=== PATIENT | female | born 1935 | race Caucasian/White ===

== ENCOUNTER 2021-01-09 17:06 | Inpatient (IN) | payer OTHER ==
--- NOTE | 2021-01-09 17:42 | RAD REPORT ---
EXAM DESCRIPTION: CT - Ct Stroke Brain Wo Cont - 01/09/2021 5:34 pm CLINICAL HISTORY: WEAKNESS Headache, drowsiness, CVA symptomology COMPARISON: No comparisons TECHNIQUE: All CT scans are performed using dose optimization technique as appropriate and may inclu de automated exposure control or mA/KV adjustment according to patient size. FINDINGS: No intracranial hemorrhage, hydrocephalus or extra-axial fluid collection.Advanced general ized brain atrophy is present with advanced periventricular and deep white matter chronic microvascul ar ischemic changes.No areas of brain edema or evidence of midline shift. The paranasal sinuses and mastoids are clear. The calvarium is intact. IMPRESSION: No acute intracranial abnormality. Continued clinical complaint or concern may benefit by MRI brain followup. The findings were discussed with Dr. Medel On 01/09/2021 at 5:36 p.m. by telephone.
[2021-01-09 17:57] LABS: Basophils % 1.1 % (0-1.3); Hematocrit 39.3 % (36.0-45.0); Lymphocytes % 21.5 % (15.3-44.8); RBC Red Blood Cell Count 4.16 M/uL (3.86-4.86)
--- NOTE | 2021-01-09 18:01 | EDPHYS ---
Physician Documentation [facility] Name: Brent Harris Age: 85 yrs Sex: Female : 1935 Arrival Date: 01/09/2021 Time: 17:16 Bed 23 Private MD: ED Physician Pasha Medel HPI: 01/09 17:22 This 85 yrs old Female presents to ER via Ambulatory with complaints of S/S estefany of Possible Stroke. 17:22 The patient's problem is reported as weakness, in the left upper extremity. Onset: The estefany symptoms/episode began/occurred 5 hour(s) ago. Duration: The episode is continuous. Context: the episode(s) was witnessed, by no one, symptoms became apparent at an unknown time, last normal 1230 pm. The symptoms are alleviated by nothing. The symptoms are aggravated by nothing. Associated signs and symptoms: The patient has no apparent associated signs or symptoms. Severity of symptoms: At their worst the symptoms were mild moderate in the emergency department the symptoms are unchanged. Patient's baseline: Neuro: alert but confused. The patient has not experienced similar symptoms in the past. 17:48 Duration: spoke with daughter, pt was normal last night, today at 1230pm daughter estefany noticed, left arm weakness, then rechesked her at 4pm , weakness progressed, left arm, call to ems was done. Historical: - Allergies: 17:30 NKDA; estefany - Social history:: Smoking status: Patient denies any tobacco usage or history of. Patient/guardian denies using alcohol, street drugs, IV drugs, caffeine, tobacco products. - Family history:: not pertinent. - Hospitalizations: : No recent hospitalization is reported. ROS: 17:22 Constitutional: Negative for fever, chills, and weight loss, Eyes: Negative for injury, estefany pain, redness, and discharge, ENT: Negative for injury, pain, and discharge, Neck: Negative for injury, pain, and swelling, Cardiovascular: Negative for chest pain, palpitations, and edema, Respiratory: Negative for shortness of breath, cough, wheezing, and pleuritic chest pain, Abdomen/GI: Negative for abdominal pain, nausea, vomiting, diarrhea, and constipation, Back: Negative for injury and pain, : Negative for injury, bleeding, discharge, and swelling, MS/Extremity: Negative for injury and deformity, Skin: Negative for injury, rash, and discoloration, Psych: Negative for depression, anxiety, suicide ideation, homicidal ideation, and hallucinations, Allergy/Immunology: Negative for hives, rash, and allergies, Endocrine: Negative for neck swelling, polydipsia, polyuria, polyphagia, and marked weight changes, Hematologic/Lymphatic: Negative for swollen nodes, abnormal bleeding, and unusual bruising. 17:22 Neuro: Positive for weakness. Exam: 17:22 Constitutional: This is a well developed, well nourished patient who is awake, alert, estefany and in no acute distress. Head/Face: Normocephalic, atraumatic. Eyes: Pupils equal round and reactive to light, extra-ocular motions intact. Lids and lashes normal. Conjunctiva and sclera are non-icteric and not injected. Cornea within normal limits. Periorbital areas with no swelling, redness, or edema. ENT: Nares patent. No nasal discharge, no septal abnormalities noted. Tympanic membranes are normal and external auditory canals are clear. Oropharynx with no redness, swelling, or masses, exudates, or evidence of obstruction, uvula midline. Mucous membranes moist. Neck: Trachea midline, no thyromegaly or masses palpated, and no cervical lymphadenopathy. Supple, full range of motion without nuchal rigidity, or vertebral point tenderness. No Meningismus. Chest/axilla: Normal chest wall appearance and motion. Nontender with no deformity. No lesions are appreciated. Cardiovascular: Regular rate and rhythm with a normal S1 and S2. No gallops, murmurs, or rubs. Normal PMI, no JVD. No pulse deficits. Abdomen/GI: Soft, non-tender, with normal bowel sounds. No distension or tympany. No guarding or rebound. No evidence of tenderness throughout. Back: No spinal tenderness. No costovertebral tenderness. Full range of motion. Female : Normal external genitalia. Skin: Warm, dry with normal turgor. Normal color with no rashes, no lesions, and no evidence of cellulitis. Psych: Awake, alert, with orientation to person, place and time. Behavior, mood, and affect are within normal limits. 17:22 Respiratory: the patient does not display signs of respiratory distress, Respirations: normal, Breath sounds: rhonchi, that are mild, Respiratory rate: 16 17:51 Radiologist reports: negative per Dr Ha allison 19:11 ECG was reviewed by the Attending Physician. [facility] Vital Signs: 17:15 BP 211 / 108; Pulse 67; Resp 21; Pulse Ox 97% on R/A; kg 17:17 BP 211 / 108; Pulse 69; Resp 16; Pulse Ox 99% on R/A; Pain 0/10; ss 17:30 BP 197 / 71; Pulse 62; Resp 20; Pulse Ox 97% on R/A; kg 18:00 BP 196 / 78; Pulse 63; Resp 20; Pulse Ox 96% on R/A; kg 18:30 BP 191 / 107; Pulse 62; Resp 20; Pulse Ox 96% on R/A; kg 20:00 BP 194 / 82; Pulse 64; Resp 16; Pulse Ox 100% on R/A; jm8 21:58 BP 187 / 82; Pulse 61; Resp 16; Pulse Ox 96% on R/A; jm8 NIH Stroke Scale Scores: 18:00 NIHSS Score: 9 kg MDM: 17:28 Differential diagnosis: CVA, TIA, Dementia, Alzheimer disease, metabolic disorder. Data [facility] reviewed: vital signs, nurses notes, EMS record, lab test result(s), EKG, radiologic studies, CT scan, plain films. 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 Test interpretation: by ED physician or midlevel provider: ECG, plain radiologic studies. Counseling: I had a detailed discussion with the patient and/or guardian regarding: the historical points, exam findings, and any diagnostic results supporting the discharge/admit diagnosis, the presence of at least one elevated blood pressure reading (>120/80) during this emergency department visit, lab results, the need for further work-up and treatment in the hospital. 17:30 Patient medically screened. [facility] 18:07 Physician consultation: Femi Clayton MD and will see patient in inpatient room, [facility], not a TPA candidate, aspirin and Plavix now, Lipitor as well. pt outside 4.5 hour window. 01/09 17:21 Order name: Basic Metabolic Panel [facility] 01/09 17:21 Order name: CBC with Diff [facility] 01/09 17:21 Order name: LFT's; Complete Time: 19:09 [facility] 01/09 17:21 Order name: Magnesium; Complete Time: 19:09 [facility] 01/09 17:21 Order name: NT PRO-BNP; Complete Time: 19:09 [facility] 01/09 17:21 Order name: PT-INR; Complete Time: 19:09 [facility] 01/09 17:21 Order name: Troponin (emerg Dept Use Only); Complete Time: 19:09 [facility] 01/09 17:21 Order name: Urine Culture [facility] 01/09 17:22 Order name: Sed Rate; Complete Time: 19:09 [facility] 01/09 17:22 Order name: CRP; Complete Time: 19:09 [facility] 01/09 17:22 Order name: Basic Metabolic Panel; Complete Time: 19:09 [facility] 01/09 17:22 Order name: CBC with Automated Diff; Complete Time: 19:09 [facility] 01/09 17:53 Order name: COVID-19 : Document "Date of Symptom Onset" if Symptomatic. 01/09 18:07 Order name: Lipid Profile; Complete Time: 19:31 [facility] 01/09 17:21 Order name: XRAY Chest (1 view); Complete Time: 20:13 [facility] 01/09 17:21 Order name: EKG; Complete Time: 17:22 [facility] 01/09 17:21 Order name: Cardiac monitoring; Complete Time: 19:16 [facility] 01/09 17:21 Order name: EKG - Nurse/Tech; Complete Time: 19:16 [facility] 01/09 17:21 Order name: CT Stroke Brain w/o Contrast; Complete Time: 19:09 [facility] 01/09 17:48 Order name: CT Head Angio; Complete Time: 20:13 [facility] 01/09 17:48 Order name: Neck Angio; Complete Time: 20:13 [facility] 01/09 18:12 Order name: Urine Dipstick-Ancillary; Complete Time: 19:09 [facility] 01/09 19:16 Order name: CONS Physician Consult [facility] 01/09 20:57 Order name: SARS-COV-2 RT PCR; Complete Time: 20:58 [facility] 01/09 17:21 Order name: IV Saline Lock; Complete Time: 19:16 [facility] 01/09 17:21 Order name: Labs collected and sent; Complete Time: 19:16 [facility] 01/09 17:21 Order name: O2 Per Protocol; Complete Time: 18:22 [facility] 01/09 17:21 Order name: O2 Sat Monitoring; Complete Time: 18:22 [facility] 01/09 17:21 Order name: Urine Dipstick-Ancillary (obtain specimen); Complete Time: 19:48 estefany EC:11 Rate is 65 beats/min. Rhythm is regular. QRS [place] is Normal. DC interval is normal. QRS estefany interval is normal. QT interval is normal. No Q waves. T waves are Normal. No ST changes noted. Clinical impression: NSR w/ Non-specific ST/T Changes and No evidence of ischemia. Interpreted by me. Reviewed by me. Administered Medications: Discontinued: NS 0.9% 500 ml IV at bolus once 19:00 Drug: Aspirin Chewable Tablet 324 mg Route: PO; iw 22:00 Follow up: Response: No adverse reaction [facility] 19:00 Drug: PlaVIX (clopidogrel) 75 mg Route: PO; iw 22:00 Follow up: Response: No adverse reaction 8 19:00 Drug: Lipitor (atorvastatin) 10 mg Route: PO; iw 22:00 Follow up: Response: No adverse reaction [facility] 19:40 Drug: NS 0.9% 500 ml Route: IV; Rate: bolus; Site: left antecubital; kg 19:40 Drug: NS 0.9% 1000 ml Route: IV; Rate: 125 ml/hr; Site: left antecubital; kg 19:40 Drug: foLIC Acid 1 mg Route: IVPB; Site: left antecubital; kg 22:01 Follow up: Response: No adverse reaction [facility] Disposition: 01/09/21 18:00 Hospitalization ordered by Bernardino Barraza for Inpatient Admission. Preliminary diagnosis are Transient cerebral ischemic attack, unspecified - left arm weakness, Essential (primary) hypertension. - Bed requested for Telemetry/MedSurg (Inpatient). - Status is Inpatient Admission. jm8 - Condition is Fair. - Problem is new. - Symptoms are unchanged. NIH Stroke Scale - NIH Stroke Score Date: 01/09/2021 Time: 18:00 Total Score = 9 1a. Level of Consciousness (LOC) - 0(Alert) 1b. Level of Consciousness (LOC) (Year \\T\\ Age) - 0(Both) 1c. LOC Commands (Open \\T\\ Closes Eyes/Brancher) - 0(Both) 2. Best Gaze (Lateral Gaze Paresis) - 0(Normal) 3. Visual Field Loss - 0(No visual loss) 4. Facial Palsy - 1(Minor Paralysis) 5a. Left Arm: Motor (10-second hold) - 3(No effort against gravity) 5b. Right Arm: Motor (10-second hold) - 0(No drift) 6a. Left Leg: Motor (5-second hold - always test supine) - 3(No effort against gravity) 6b. Right Leg: Motor (5-second hold - always test supine) - 1(Drift) 7. Limb Ataxia (finger/nose \\T\\ heel/traylor - test with eyes open) - 1(Present in one limb) 8. Sensory Loss (pinprick arms/legs/face) - 0(Normal) 9. Best Language: Aphasia (description/naming/reading) - 0(No aphasia) 10. Dysarthria (speech clarity - read or repeat words) - 0(Normal) 11. Extinction and Inattention (visual/tactile/auditory/spatial/personal) - 0(No abnormality) Initials: kg Signatures: Dispatcher [employer] EDGilda Delgado RN RN mw Anderson, Corey, MD MD cha Mickail, Joel, PA PA jmm Williams, Irene, RN RN iw Malcaba, Joseph, RN RN jm8 Graham, Kristen kg Corrections: (The following items were deleted from the chart) 19:14 19:12 Joint Treatment: Aspiration of right knee using 18 gauge needle, estefany Lidocaine, Removed clear fluid, yellow fluid, Dressed with band aid, Neosporin, Patient tolerated well. medil approach, 90 cc of fluid removed, sent for studies. [facility] 21:37 18:00 Hospitalization Ordered by Bernardino Barraza MD for Inpatient Admission. Preliminary diagnosis is Transient cerebral ischemic attack, unspecified - left arm weakness; Essential (primary) hypertension. Bed requested for Telemetry/MedSurg (Inpatient). Status is Inpatient Admission. Condition is Fair. Problem is new. Symptoms are unchanged. estefany 23:13 21:37 01/09/2021 18:00 Hospitalization Ordered by Bernardino Barraza MD for jm8 Inpatient Admission. Preliminary diagnosis is Transient cerebral ischemic attack, unspecified - left arm weakness; Essential (primary) hypertension. Bed requested for Telemetry/MedSurg (Inpatient). Status is Inpatient Admission. Condition is Fair. Problem is new. Symptoms are unchanged.
--- NOTE | 2021-01-09 18:01 | ER ---
Nurse's Notes [facility] Name: Brent Harris Age: 85 yrs Sex: Female : 1935 Arrival Date: 01/09/2021 Time: 17:16 Bed 23 Private MD: Diagnosis: Transient cerebral ischemic attack, unspecified-left arm weakness;Essential (primary) hypertension Presentation: 01/09 17:17 Chief complaint: EMS states: Family states L sided weakness that began sometime today. ss Last known well was was approximately 1200 today. Coronavirus screen: Client denies travel out of the [place] in the last 14 days. Ebola Screen: Patient denies exposure to infectious person. Patient denies travel to an Ebola-affected area in the 21 days before illness onset. An acute neurological deficit is present. The patients blood glucose was checked before arriving to the hospital and was found to be normal. Initial Sepsis Screen: Does the patient meet any 2 criteria? No. Patient's initial sepsis screen is negative. Does the patient have a suspected source of infection? No. Patient's initial sepsis screen is negative. Risk Assessment: Do you want to hurt yourself or someone else? Patient reports no desire to harm self or others. Onset of symptoms was January 09, 2021. 17:17 Method Of Arrival: Ambulatory ss 17:17 Acuity: ROBERT 3 ss Triage Assessment: 19:00 Neuro: Reports weakness in left arm since 12 pm Unknown onset per daughter. jm8 19:00 General: Appears in no apparent distress. Behavior is calm, cooperative, appropriate jm8 for age. 19:00 The onset of the patients symptoms was at an unknown time. jm8 Stroke Activation: Symtpom onset >3 hours and < 6 hours Physician: Stroke Attending; Name: ; Notified At: ; Arrived At: Physician: Chief Stroke Resident; Name: ; Notified At: ; Arrived At: Physician: Stroke Resident; Name: ; Notified At: ; Arrived At: Physician: ED Attending; Name: ; Notified At: ; Arrived At: Physician: ED Resident; Name: ; Notified At: ; Arrived At: Historical: - Allergies: 17:30 NKDA; estefany - Social history:: Smoking status: Patient denies any tobacco usage or history of. Patient/guardian denies using alcohol, street drugs, IV drugs, caffeine, tobacco products. - Family history:: not pertinent. - Hospitalizations: : No recent hospitalization is reported. Screenin:30 Abuse screen: Denies threats or abuse. Nutritional screening: No deficits noted. kg Tuberculosis screening: No symptoms or risk factors identified. Fall Risk Fall in past 12 months (25 points). IV access (20 points). Ambulatory Aid- Crutches/Cane/Walker (15 pts). Gait- Weak (10 pts.). Mental Status- Overestimates/Forgets Limitations (15 pts.). Total Tobin Fall Scale indicates High Risk Score (45 or more points). Fall prevention measures have been instituted. Side Rails Up X 2 Placed Close to Nursing Station Frequent Obs/Assessments Occuring Family Present and informed to notify staff if the need to leave the bedside As available patient and family educated on Fall Prevention Program and Strategies. Assessment: 18:00 VAN Scoring: Arm Drift: Severe drift Patient has been NPO before screening. The patient kg is alert, and able to follow commands. The patient does not exhibit slurred or garbled speech. The patient is not exhibiting difficulty speaking. The patient does not exhibit difficulty understanding words. The patient is unable to swallow own secretions without drooling or the need for suction. Patient tolerated one teaspoon of water. No drooling, immediate coughing, gurgling, or clearing of the throat was noted. The patient tolerated 90mL of water. No drooling, immediate coughing, gurgling, or clearing of the throat was noted. The patient passed the bedside swallow screening. Oral medications may be given as ordered. Contact Physician for further diet orders. T-PA (Activase) Screening: Contraindications: Other: Last seen normal >24 hrs. General: Appears in no apparent distress. Pain: Denies pain. Neuro: Level of Consciousness is Oriented to place, situation, Turbine Measurements Engineer are weak on left Weakness in left Speech is normal, Facial droop on left, Pupils are PERRLA, Intact. Cardiovascular: No deficits noted. Respiratory: No deficits noted. GI: No deficits noted. : No deficits noted. EENT: No deficits noted. Derm: No deficits noted. Musculoskeletal: No deficits noted. 20:00 Reassessment: Patient appears in no apparent distress at this time. No changes from 8 previously documented assessment. Patient and/or family updated on plan of care and expected duration. Pain level reassessed. Patient is alert, oriented x 3, equal unlabored respirations, skin warm/dry/pink. Patient denies pain at this time. 22:00 Reassessment: Patient appears in no apparent distress at this time. No changes from jm8 previously documented assessment. Patient and/or family updated on plan of care and expected duration. Pain level reassessed. Patient is alert, oriented x 3, equal unlabored respirations, skin warm/dry/pink. Patient denies pain at this time. Vital Signs: 17:15 BP 211 / 108; Pulse 67; Resp 21; Pulse Ox 97% on R/A; kg 17:17 BP 211 / 108; Pulse 69; Resp 16; Pulse Ox 99% on R/A; Pain 0/10; ss 17:30 BP 197 / 71; Pulse 62; Resp 20; Pulse Ox 97% on R/A; kg 18:00 BP 196 / 78; Pulse 63; Resp 20; Pulse Ox 96% on R/A; kg 18:30 BP 191 / 107; Pulse 62; Resp 20; Pulse Ox 96% on R/A; kg 20:00 BP 194 / 82; Pulse 64; Resp 16; Pulse Ox 100% on R/A; jm8 21:58 BP 187 / 82; Pulse 61; Resp 16; Pulse Ox 96% on R/A; jm8 NIH Stroke Scale Scores: 18:00 NIHSS Score: 9 kg ED Course: 17:16 Patient arrived in ED. ss 17:17 Arm band placed on right wrist. ss 17:18 Pasha Medel MD is Attending Physician. estefany 17:21 Triage completed. ss 17:25 Inserted saline lock: 18 gauge. kg 17:30 Patient has correct armband on for positive identification. Fall risk band placed. kg Placed in gown. Bed in low position. Call light in reach. Side rails up X2. 17:34 CT Stroke Brain w/o Contrast In Process Unspecified. EDMS 17:40 XRAY Chest (1 view) In Process Unspecified. EDMS 17:41 Shayna Edwards is Primary Nurse. kg 17:54 Ck Disla MD is Hospitalizing Provider. estefany 17:54 Bernardino Barraza MD is Hospitalizing Provider. estefany 18:53 CT Head Angio In Process Unspecified. EDMS 18:53 Neck Angio In Process Unspecified. EDMS 19:16 Basic Metabolic Panel Sent. kg 19:16 CBC with Diff Sent. kg 19:31 Fredy Johnston PA is PHCP. jmm 19:48 Report given to Refugio MORA. kg 22:56 No provider procedures requiring assistance completed. Patient admitted, IV remains in iw place. Administered Medications: Discontinued: NS 0.9% 500 ml IV at bolus once 19:00 Drug: Aspirin Chewable Tablet 324 mg Route: PO; iw 22:00 Follow up: Response: No adverse reaction jm8 19:00 Drug: PlaVIX (clopidogrel) 75 mg Route: PO; iw 22:00 Follow up: Response: No adverse reaction jm8 19:00 Drug: Lipitor (atorvastatin) 10 mg Route: PO; iw 22:00 Follow up: Response: No adverse reaction jm8 19:40 Drug: NS 0.9% 500 ml Route: IV; Rate: bolus; Site: left antecubital; kg 19:40 Drug: NS 0.9% 1000 ml Route: IV; Rate: 125 ml/hr; Site: left antecubital; kg 19:40 Drug: foLIC Acid 1 mg Route: IVPB; Site: left antecubital; kg 22:01 Follow up: Response: No adverse reaction [facility] Outcome: 18:00 Decision to Hospitalize by Provider. estefany 23:12 Admitted to Med/surg accompanied by nurse, family with patient, via stretcher, with 8 chart, Report called to Gypsy MORA 23:12 Condition: good 23:13 Patient left the ED. jm8 NIH Stroke Scale - NIH Stroke Score Date: 01/09/2021 Time: 18:00 Total Score = 9 1a. Level of Consciousness (LOC) - 0(Alert) 1b. Level of Consciousness (LOC) (Year \T\ Age) - 0(Both) 1c. LOC Commands (Open \T\ Closes Eyes/Television Installer Helper) - 0(Both) 2. Best Gaze (Lateral Gaze Paresis) - 0(Normal) 3. Visual Field Loss - 0(No visual loss) 4. Facial Palsy - 1(Minor Paralysis) 5a. Left Arm: Motor (10-second hold) - 3(No effort against gravity) 5b. Right Arm: Motor (10-second hold) - 0(No drift) 6a. Left Leg: Motor (5-second hold - always test supine) - 3(No effort against gravity) 6b. Right Leg: Motor (5-second hold - always test supine) - 1(Drift) 7. Limb Ataxia (finger/nose \T\ heel/traylor - test with eyes open) - 1(Present in one limb) 8. Sensory Loss (pinprick arms/legs/face) - 0(Normal) 9. Best Language: Aphasia (description/naming/reading) - 0(No aphasia) 10. Dysarthria (speech clarity - read or repeat words) - 0(Normal) 11. Extinction and Inattention (visual/tactile/auditory/spatial/personal) - 0(No abnormality) Initials: kg Signatures: Dispatcher [employer] EDMS Pasha Medel MD MD cha Mickail, Joel, PA PA jmm Williams, Irene, RN RN Catrachita Resendez RN RN ss Malcaba, Joseph, RN RN jm8 Graham, Kristen kg Corrections: (The following items were deleted from the chart) 19:54 17:00 BP 211 / 108; Pulse 67bpm; Resp 21bpm; Pulse Ox 97% RA; kg kg 21:58 18:00 The patient passed the bedside swallow screening. Oral medications may be jm8 given as ordered. Contact Physician for further diet orders. kg 23:12 23:11 The onset of the patients symptoms was [facility] valadez 23:13 22:56 Admitted to [facility]
[2021-01-09 18:04] LABS: Protime INR 1.07
[2021-01-09 18:13] LABS: Urine Blood Trace-lysed (Negative); Urine Glucose Negative (Negative); Urine Protein 1+ (Negative)
[2021-01-09 18:13] LABS: ALT/SGPT 27 U/L (12-78); AST/SGOT 18 U/L (15-37); Albumin 4.2 g/dL (3.4-5.0); Alkaline Phosphatase 75 U/L (45-117); BUN Blood Urea Nitrogen 8 mg/dL (7-18); Bicarbonate 25 mmol/L (21-32); Bilirubin Direct 0.1 mg/dL (0-0.2); Bilirubin Total 0.7 mg/dL (0.2-1.0); C-Reactive Protein 5.33 mg/L (<3.00); Glucose Level 107 mg/dL (74-106); Magnesium 2.1 mg/dL (1.8-2.4); NT PRO-BNP 210 pg/mL (<450); Potassium 3.9 mmol/L (3.5-5.1); Protein, Total 8.1 g/dL (6.4-8.2); Sodium Level 138 mmol/L (136-145); Troponin (Emerg Dept Use Only) < 0.02 ng/mL (0.0-0.045)
--- NOTE | 2021-01-09 19:39 | P.HP ---
Certification for Inpatient Patient admitted to: Inpatient With expected LOS: >2 Midnights Patient will require the following post-hospital care: None Practitioner: I am a practitioner with admitting privileges, knowledge of patient current condition, hospital course, and medical plan of care. Services: Services provided to patient in accordance with Admission requirements found in Title 42 Section 412.3 of the Code of Federal Regulations Patient History Date of Service: 01/09/21 Primary Care Provider: none Reason for admission: L arm weakness History of Present Illness: Ms. Harris is an 85 yo female who presents today with weakness in her left arm and fatigue. Her daughter reports today at 1230pm she found her mother was weak and was unable to get up on her own. She had not fallen but needed assistance to the couch. She had one episode of nausea and vomiting and reports a headache. Denies vision changes, aphasia, ataxia, sensory changes, and dizziness. Former smoker, quit 10-15 years ago. Cholesterol 330. LDL 252. Ct Head wnl. - Past Medical/Surgical History Has patient received pneumonia vaccine in the past: No Diabetic: No Past Medical History: Patient denies medical history Past Surgical History: Patient denies surgical history - Family History Mother -: Diabetes Father -: Liver disease Notes: Cirrhosis - Social History Smoking Status: Former smoker Alcohol use: Yes CD- Drugs: No Caffeine use: Yes Place of Residence: Home Review of Systems General: Weakness, As per HPI Eyes: Unremarkable ENT: Unremarkable Respiratory: Unremarkable Cardiovascular: Unremarkable Gastrointestinal: Nausea, Vomiting, As per HPI Genitourinary: Unremarkable Musculoskeletal: Unremarkable Integumentary: Unremarkable Neurological: Weakness, Incoordination, As per HPI Lymphatics: Unremarkable Physical Examination - Physical Exam General: In no apparent distress, Oriented x3, Cooperative HEENT: Atraumatic, Normocephalic, PERRLA, Mucous membr. moist/pink, EOMI, Sclerae nonicteric Neck: Supple, 2+ carotid pulse no bruit, JVD not distended, No Thyromegaly, No LAD Respiratory: Clear to auscultation bilaterally, Normal air movement Cardiovascular: No edema, Normal pulses, Regular rate/rhythm, Normal S1 S2, No gallops, No rubs, No murmurs Capillary refill: <2 Seconds Gastrointestinal: Normal bowel sounds, Soft and benign, Non-distended, No ascites, No tenderness, No masses, No rebound, No guarding Musculoskeletal: No clubbing, No swelling, No contractures, No erythema, No tenderness, No warmth Integumentary: No rashes, No breakdown, No significant lesion, No tenderness/swelling, No erythema, No warmth, No cyanosis Neurological: Normal speech, Normal tone, Sensation intact, Cranial nerves 3-12 intact, Other (L arm weakness, decreased ROM, 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, 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 ), Abnormal strength Lymphatics: No axilla or inguinal lymphadenopathy - Studies Laboratory Data (last 24 hrs) 01/09/21 17:25: Triglycerides 127, Cholesterol 330 H, HDL Cholesterol 53, Cholesterol/HDL Ratio 6.23 01/09/21 17:25: PT 12.3, INR 1.07 01/09/21 17:25: WBC 9.50, Hgb 13.0, Hct 39.3, Plt Count 314 01/09/21 17:25: Sodium 138, Potassium 3.9, BUN 8, Creatinine 0.70, Glucose 107 H, Magnesium 2.1, Total Bilirubin 0.7, AST 18, ALT 27, Alkaline Phosphatase 75 Assessment and Plan - Problems (Diagnosis) (1) Hyperlipidemia Current Visit: Yes Status: Acute Qualifiers: Hyperlipidemia type: pure hypercholesterolemia Qualified Code(s): E78.00 - Pure hypercholesterolemia, unspecified; E78.0 - Pure hypercholesterolemia (2) Left arm weakness Current Visit: Yes Status: Acute - Plan Neurology consulted CT Head wnl, CTA Head and Neck pending ASA + plavix, folic acid, atorvastatin 40mg PO daily permissive HTN PT, OT, speech consulted pending, NPO until passes swallow screen Discharge Plan: Home Plan to discharge in: 48 Hours - Advance Directives Does patient have a Living Will: No Does patient have a Durable POA for Healthcare: No - Code Status/Comfort Care Code Status Assessed: Yes (full code ) Critical Care: No Time Spent Managing Pts Care (In Minutes): 70
[2021-01-09] MEDS ORDERED: NA CHLORIDE 0.9% 500 ML ONE (19:42)
[2021-01-09] MEDS ORDERED: NA CHLORIDE 0.9% 1,000 ML ONE (19:42)
[2021-01-09] MEDS ORDERED: FOLIC ACID 5 MG/ML VIAL ONE (19:43)
[2021-01-09] MEDS ORDERED: ASPIRIN EC 81 MG TAB PO ONE (19:44)
[2021-01-09] MEDS ORDERED: ATORVASTATIN 20 MG TAB ONE (19:44)
[2021-01-09] MEDS ORDERED: CLOPIDOGREL 75 MG TABLET ONE (19:44)
--- NOTE | 2021-01-09 19:44 | RAD REPORT ---
EXAM DESCRIPTION: CT - Head angio - 01/09/2021 6:53 pm CLINICAL HISTORY: TIA;Weakness Headache, drowsiness, CVA symptomology COMPARISON: Ct Stroke Brain Wo Cont dated 01/09/2021 TECHNIQUE: CT angiography of the head was performed with MIPs. All CT scans are performed using dose optimization technique as appropriate and may include automated exposure control or mA/KV adjustment according to patient size. FINDINGS: There is a 3 mm aneurysm seen involving left carotid terminus. No additional aneurysms det ected. Moderate narrowing of the basilar artery is seen suggesting atheromatous stenosis 70-80%. No v ascular malformation evident. Antegrade flow is seen in the vertebral arteries. The right vertebral artery is dominant. The visualized dural venous sinuses are patent. 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 Moderate stenosis of basilar artery estimated at 70%.
--- NOTE | 2021-01-09 19:48 | RAD REPORT ---
EXAM DESCRIPTION: CT - Neck Angio - 01/09/2021 6:53 pm CLINICAL HISTORY: possible stroke Headache, drowsiness COMPARISON: Head angio dated 01/09/2021; Ct Stroke Brain Wo Cont dated 01/09/2021 TECHNIQUE: CT angiography of the neck vessels was performed with MIPs. All CT scans are performed using dose optimization technique as appropriate and may include automated exposure control or mA/KV adjustment according to patient size. FINDINGS: A left aortic arch is identified with normal three vessel configuration of the great vesse ls. Moderate atherosclerotic narrowing is seen of the left subclavian artery origin. Both carotid arteries take a retropharyngeal course with mild atherosclerotic calcification seen. Johnny rowing of the right carotid bulb caused by atheromatous plaquing is noted estimated at 50-70% based o n NASCET criteria. Normal flow is seen within both vertebral arteries. IMPRESSION: Right carotid bulb narrowing is noted caused by mixed plaque estimated at 50-70% based o n NASCET criteria.
--- NOTE | 2021-01-09 19:56 | RAD REPORT ---
EXAM DESCRIPTION: RAD - Chest Single View - 01/09/2021 5:41 pm CLINICAL HISTORY: COUGH Chest pain. COMPARISON: No comparisons FINDINGS: Portable technique limits examination quality. The lungs are grossly clear. The heart is normal in size. No displaced fractures. IMPRESSION: No acute intrathoracic process suspected.
[2021-01-09 23:10] VITALS: BMI 33.3
[2021-01-09 23:53] LABS: Thyroid Stimulating Hormone 3.54 uIU/mL (0.360-3.740)
[2021-01-10 06:00] LABS: Absolute Lymphocytes (CBC) 1.6 K/uL (0.7-4.9); Basophils % 0.8 % (0-1.3); Hematocrit 37.6 % (36.0-45.0); Lymphocytes % 22.1 % (15.3-44.8); MPV 8.4 fL (7.6-11.3); RBC Red Blood Cell Count 4.01 M/uL (3.86-4.86)
[2021-01-10 06:01] LABS: Albumin 3.8 g/dL (3.4-5.0); Bilirubin Total 0.6 mg/dL (0.2-1.0); Magnesium 2.2 mg/dL (1.8-2.4); Phosphorus 3.5 mg/dL (2.5-4.9); Potassium 3.4 mmol/L (3.5-5.1); Protein, Total 7.3 g/dL (6.4-8.2)
--- NOTE | 2021-01-10 07:57 | EKG ---
Test Date: 2021-01-09 Test Time: 18:40:33 Billing Typist: MARCY Velasquez MEASUREMENT RESULTS: Intervals: Rate: 65 DE: 202 QRSD: 70 QT: 438 QTc: 455 [place]: P: 55 DE: 202 QRS: 1 T: 20 INTERPRETIVE STATEMENTS: Normal sinus rhythm Nonspecific ST and T wave abnormality Abnormal ECG No previous ECG available for comparison Electronically Signed On 01-10-21 07:56:13 CDT by Scot Parker
[2021-01-10] MEDS ORDERED: PNEUMOCOCCAL VACCINE 0.5 ML IMVAC ONE (08:00)
[2021-01-10] MEDS ORDERED: POTASSIUM 25 MEQ EFFERV TAB PO ONE (09:00)
[2021-01-10 09:28] LABS: Blood Morphology Comment NOT SEEN (NOT SEEN); Platelet Estimate ADEQ
[2021-01-10] MEDS: ASPIRIN EC 81 MG TAB PO SCH (09:45)
[2021-01-10] MEDS: FOLIC ACID 1 MG TABLET PO SCH (09:45)
[2021-01-10] MEDS: CLOPIDOGREL 75 MG TABLET PO SCH (09:45)
[2021-01-10] MEDS: ENOXAPARIN 40 MG/0.4 ML SQ SCH (09:45)
--- NOTE | 2021-01-10 10:52 | P.PN ---
Subjective Date of Service: 01/10/21 Primary Care Provider: none Chief Complaint: L arm weakness Patient has no new complain. She is awake, interact meaningfully. She denies any visual changes. Physical Examination - Vital Signs Temperature: 97.9 F Blood Pressure: 185/83 Pulse: 62 Respirations: 16 Pulse Ox (%): 96 - Physical Exam General: In no apparent distress, Oriented x2, Other (Awake) HEENT: Mucous membr. moist/pink Neck: Supple, JVD not distended Respiratory: Clear to auscultation bilaterally, Normal air movement Cardiovascular: No edema, Regular rate/rhythm, Normal S1 S2 Gastrointestinal: Normal bowel sounds, Soft and benign, Non-distended, No tenderness Musculoskeletal: No swelling Integumentary: No rashes Neurological: Other (Left upper extremity and lower extremity weakness) - Studies Laboratory Data (last 24 hrs) 01/09/21 17:25: Triglycerides 127, Cholesterol 330 H, HDL Cholesterol 53, Cholesterol/HDL Ratio 6.23 01/09/21 17:25: PT 12.3, INR 1.07 01/09/21 17:25: WBC 9.50, Hgb 13.0, Hct 39.3, Plt Count 314 01/09/21 17:25: Sodium 138, Potassium 3.9, BUN 8, Creatinine 0.70, Glucose 107 H, Magnesium 2.1, Total Bilirubin 0.7, AST 18, ALT 27, Alkaline Phosphatase 75 Assessment And Plan - Current Problems (Diagnosis) (1) Acute CVA (cerebrovascular accident) Current Visit: Yes Status: Acute (2) Accelerated hypertension Current Visit: Yes Status: Acute (3) Basilar artery stenosis/occlusion Current Visit: Yes Status: Acute (4) Cerebral arterial aneurysm Current Visit: Yes Status: Acute - Plan Continue aspirin. Add Plavix. High-dose Lipitor. Folic acid MRI of the brain on Tuesday. Obtain echocardiogram. Neurology consult. PT eval Speech eval.
[2021-01-10] MEDS: ATORVASTATIN 40 MG TAB PO SCH (21:34)
[2021-01-11 06:07] LABS: Potassium 3.8 mmol/L (3.5-5.1)
[2021-01-11] MEDS: ASPIRIN EC 81 MG TAB PO SCH (08:37)
[2021-01-11] MEDS: FOLIC ACID 1 MG TABLET PO SCH (08:37)
[2021-01-11] MEDS: CLOPIDOGREL 75 MG TABLET PO SCH (08:37)
[2021-01-11] MEDS: ACETAMINOPHEN 500 MG TAB PO PRN ×2 (08:38→20:52)
[2021-01-11] MEDS: ENOXAPARIN 40 MG/0.4 ML SQ SCH (08:39)
[2021-01-11] MEDS ORDERED: POTASSIUM 25 MEQ EFFERV TAB PO ONE (09:00)
--- NOTE | 2021-01-11 10:42 | RAD REPORT ---
EXAM DESCRIPTION: RAD - Wrist Left 2 View - 01/11/2021 9:40 am CLINICAL HISTORY: Left wrist pain FINDINGS: No fracture or dislocation is seen. The bones are osteoporotic. Mild osteoarthritis involves scaphotrapezium joint and first carpometacar pal joint consisting of subchondral sclerosis
--- NOTE | 2021-01-11 13:22 | P.PN ---
Subjective Date of Service: 01/11/21 Primary Care Provider: none Chief Complaint: L arm weakness Patient is complaining of left wrist pain. She still has significant weakness in the left extremities. Physical Examination - Vital Signs Temperature: 98.9 F Blood Pressure: 176/72 Pulse: 69 Respirations: 20 Pulse Ox (%): 95 - Physical Exam General: In no apparent distress, Other (Awake) HEENT: PERRLA, Mucous membr. moist/pink, Sclerae nonicteric Neck: JVD not distended Respiratory: Clear to auscultation bilaterally, Normal air movement Cardiovascular: No edema, Regular rate/rhythm, Normal S1 S2, No murmurs Gastrointestinal: Normal bowel sounds, Soft and benign, Non-distended, No tenderness Musculoskeletal: No swelling Integumentary: No rashes Neurological: Other (Left-sided weakness) Assessment And Plan - Current Problems (Diagnosis) (1) Acute CVA (cerebrovascular accident) Current Visit: Yes Status: Acute (2) Accelerated hypertension Current Visit: Yes Status: Acute (3) Basilar artery stenosis/occlusion Current Visit: Yes Status: Acute (4) Cerebral arterial aneurysm Current Visit: Yes Status: Acute - Plan Continue aspirin and Plavix. Continue Lipitor. Folic acid MRI of the brain on Tuesday. Obtain echocardiogram. Case discussed with neurology. PT evaluated. Patient has significantly impaired mobility. Speech eval is pending. Anticipating disposition to rehab.
[2021-01-11] MEDS: ATORVASTATIN 40 MG TAB PO SCH (20:43)
[2021-01-12 06:35] LABS: Potassium 3.9 mmol/L (3.5-5.1)
[2021-01-12] MEDS: CLOPIDOGREL 75 MG TABLET PO SCH (08:25)
[2021-01-12] MEDS: FOLIC ACID 1 MG TABLET PO SCH (08:25)
[2021-01-12] MEDS: ASPIRIN EC 81 MG TAB PO SCH (08:26)
[2021-01-12] MEDS: ENOXAPARIN 40 MG/0.4 ML SQ SCH (08:26)
[2021-01-12] MEDS ORDERED: POTASSIUM 25 MEQ EFFERV TAB PO ONE (09:00)
--- NOTE | 2021-01-12 13:08 | RAD REPORT ---
EXAM DESCRIPTION: MRI - MRA Neck W/Wo Cont - 01/12/2021 12:51 pm CLINICAL HISTORY: Left-sided weakness COMPARISON: January 09 CT angiogram TECHNIQUE: Magnetic resonance angiogram of the neck was performed. 19 cc MultiHance was administered intravenously. 3D MIPS reconstruction performed FINDINGS: 3 millimeter aneurysm anterior choroidal segment of the left internal carotid artery. Moderate stenosis basilar artery. Mild plaque within the common, internal and external carotid arteries. Vertebral arteries are tortuous without visualization of a significant abnormality. The vertebral arteries are codominant without visualization of an abnormality. IMPRESSION: 3 millimeter aneurysm distal left internal carotid artery Moderate basilar stenosis NASCET criteria used. Mild 0-49% stenosis Moderate 50-69% stenosis Severe 70-99% stenosis
--- NOTE | 2021-01-12 13:14 | RAD REPORT ---
EXAM DESCRIPTION: MRI - Brain W/Wo Cont - 01/12/2021 12:52 pm CLINICAL HISTORY: Left-sided weakness COMPARISON: January 09, [address] TECHNIQUE: Axial, sagittal, and coronal magnetic images of the brain were obtained. 20 cc MultiHance administered intravenously FINDINGS: Moderate signal within periventricular, deep and subcortical white matter. Patchy signal w ithin the brainstem. This probably is secondary to ischemic changes secondary to small vessel disease The ventricles are normal in caliber. 9 millimeter area of abnormal signal is present within the right thalamus, posterior right basal gang bernadette and periventricular white matter adjacent to the right lateral ventricle consistent with acute in farction No abnormal enhancement within the brain is seen. An extra-axial fluid collection is not noted. Fluid within the sinuses/mastoids is not seen IMPRESSION: 9 millimeter area of abnormal signal is present within the right thalamus, posterior right basal gang bernaedtte and periventricular white matter adjacent to the right lateral ventricle consistent with acute in farction
--- NOTE | 2021-01-12 13:19 | RAD REPORT ---
EXAM DESCRIPTION: MRI - MRA Head Wo Cont - 01/12/2021 12:13 pm CLINICAL HISTORY: l arm weakness CVA COMPARISON: Head angio dated 01/09/2021; MRA Neck W/Wo Cont dated 01/12/2021; Neck Angio dated 01/10/20 21; Ct Stroke Brain Wo Cont dated 01/09/2021 FINDINGS: 3D noncontrast [id number] MR angiography of the [place] was performed. Motion degradation is present on the examination, limiting quality of study. Small aneurysm distal le ft internal carotid artery terminus is somewhat obscured on this study. Moderate atherosclerotic narr owing of the basilar artery is present. The visualized dural venous sinuses appear patent. IMPRESSION: Motion degradation limits the quality of the examination. The small aneurysm detected on CT angiography [place] (01/09/2021) is poorly visualized on this examination due to this artif act. Moderate basilar artery atherosclerotic narrowing is present.
--- NOTE | 2021-01-12 14:11 | P.PN ---
Subjective Date of Service: 01/12/21 Primary Care Provider: none Chief Complaint: L arm weakness Patient is complaining of left wrist pain. X-ray of the left wrist shows no fracture. She still has significant weakness in the left extremities. Family reports occasional aspiration of liquid. Physical Examination - Vital Signs Temperature: 97.3 F Blood Pressure: 143/83 Pulse: 64 Respirations: 20 Pulse Ox (%): 97 - Physical Exam General: In no apparent distress, Other ([place]) HEENT: Mucous membr. moist/pink Neck: JVD not distended Respiratory: Clear to auscultation bilaterally, Normal air movement Cardiovascular: No edema, Regular rate/rhythm, Normal S1 S2 Gastrointestinal: Normal bowel sounds, Soft and benign, Non-distended, No tenderness Musculoskeletal: No swelling, Tenderness (Dorsum of left wrist) Integumentary: No rashes Neurological: Other (Left upper extremity and left lower extremity weakness) - Studies Microbiology Data (last 24 hrs): 01/09/21 18:02 Clean Catch Urine [place] Count - Final <10,000 CFU/ML. 01/09/21 18:02 Clean Catch Urine - Final Assessment And Plan - Current Problems (Diagnosis) (1) Acute CVA (cerebrovascular accident) Current Visit: Yes Status: Acute (2) Accelerated hypertension Current Visit: Yes Status: Acute (3) Basilar artery stenosis/occlusion Current Visit: Yes Status: Acute (4) Cerebral arterial aneurysm Current Visit: Yes Status: Acute - Plan Continue aspirin and Plavix. Continue Lipitor. Folic acid MRI of the brain: Acute CVA in the right thalamus, posterior right basal ganglia and periventricular white matter adjacent to the right lateral ventricle. 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 Echocardiogram is pending. Case discussed with neurology. PT evaluated. Patient has significantly impaired mobility and not able to transfer. Speech therapy input is pending. Anticipating disposition to rehab. Social service to assist with arrangements for SNF placement.
[2021-01-12] MEDS: ONDANSETRON 4 MG/2 ML VIAL IV PRN (19:16)
[2021-01-12] MEDS: ATORVASTATIN 40 MG TAB PO SCH (20:07)
[2021-01-12] MEDS: ACETAMINOPHEN 500 MG TAB PO PRN (20:08)
[2021-01-13 06:17] LABS: Potassium 4.1 mmol/L (3.5-5.1)
[2021-01-13] MEDS: FOLIC ACID 1 MG TABLET PO SCH (08:27)
[2021-01-13] MEDS: ASPIRIN EC 81 MG TAB PO SCH (08:27)
[2021-01-13] MEDS: ENOXAPARIN 40 MG/0.4 ML SQ SCH (08:27)
[2021-01-13] MEDS: LIDOCAINE 4% PATCH TOP SCH (08:27)
[2021-01-13] MEDS: CLOPIDOGREL 75 MG TABLET PO SCH (08:27)
[2021-01-13] MEDS ORDERED: NYSTATIN PWDR 100000 UNIT/GM TOP PRN (09:21)
--- NOTE | 2021-01-13 14:06 | P.DS ---
Admission Date: 01/09/21 Discharge Date: 01/13/21 Primary Care Provider: none Disposition: TRANSFER TO INPATIENT REHAB Discharge Condition: GOOD Reason for Admission: L arm weakness Vital Signs/Physical Exam: Temp Pulse Resp BP Pulse Ox 97.3 F 65 20 149/68 H 97 01/13/21 08:00 01/13/21 08:00 01/13/21 08:00 01/13/21 08:00 01/13/21 08:00 Laboratory Data at Discharge: WBC 7.10 K/uL (4.3-10.9) D 01/10/21 05:28 Hgb 12.8 g/dL (12.0-15.0) 01/10/21 05:28 Hct 37.6 % (36.0-45.0) 01/10/21 05:28 Plt Count 359 K/uL (152-406) 01/10/21 05:28 PT 12.3 SECONDS (9.5-12.5) 01/09/21 17:25 INR 1.07 01/09/21 17:25 Sodium 139 mmol/L (136-145) 01/13/21 05:22 Potassium 4.1 mmol/L (3.5-5.1) 01/13/21 05:22 BUN 17 mg/dL (7-18) 01/13/21 05:22 Creatinine 0.74 mg/dL (0.55-1.3) 01/13/21 05:22 Glucose 128 mg/dL (74-106) H 01/13/21 05:22 Phosphorus 3.5 mg/dL (2.5-4.9) 01/10/21 05:28 Magnesium 2.2 mg/dL (1.8-2.4) 01/10/21 05:28 Total Bilirubin 0.6 mg/dL (0.2-1.0) 01/10/21 05:28 AST 16 U/L (15-37) 01/10/21 05:28 ALT 23 U/L (12-78) 01/10/21 05:28 Alkaline Phosphatase 67 U/L (45-117) 01/10/21 05:28 Triglycerides 127 mg/dL (<150) 01/09/21 17:25 Cholesterol 330 mg/dL (<200) H 01/09/21 17:25 HDL Cholesterol 53 mg/dL (40-60) 01/09/21 17:25 Cholesterol/HDL Ratio 6.23 01/09/21 17:25 Home Medications: Aspirin [Aspirin EC 81 MG] 81 mg PO DAILY 30 Days #30 tablet. 01/13/21 Atorvastatin Calcium [Lipitor] 40 mg PO BEDTIME 30 Days #30 tab 01/13/21 Clopidogrel Bisulfate [Plavix*] 75 mg PO DAILY 30 Days #30 tablet 01/13/21 Folic Acid 1 mg PO DAILY 30 Days #30 tablet 01/13/21 Nystatin Powder [Mycostatin (Powder)*] 1 appl TOP DAILY PRN 21 Days #1 btl 01/13/21 New Medications: Aspirin [Aspirin EC 81 MG] 81 mg PO DAILY 30 Days #30 tablet. Folic Acid 1 mg PO DAILY 30 Days #30 tablet Atorvastatin Calcium [Lipitor] 40 mg PO BEDTIME 30 Days #30 tab Nystatin Powder [Mycostatin (Powder)*] 1 appl TOP DAILY PRN 21 Days #1 btl PRN Reason: Rash Clopidogrel Bisulfate [Plavix*] 75 mg PO DAILY 30 Days #30 tablet Physician Discharge Instructions: Your new left sided weakness was found to be due a new stroke located in your right thalamus and posterior right basal ganglia. You were noted to have moderate basilar artery atherosclerotic narrowing which may have contributed to your stroke. You will need to follow up with Neurology (Dr. Clayton) in ~1 month, at that time you can further discuss next steps regarding this narrowing. You may possibly need a procedure done in a few months - once you recover from this stroke. Diet: AHA Activity: Fall precautions Followup: NONE,NONE [Primary Care Provider] -
--- NOTE | 2021-01-13 19:51 | P.PN ---
Subjective Date of Service: 01/13/21 Primary Care Provider: none Chief Complaint: L arm weakness Subjective: No new changes (no significant events overnight. Daughter at bedside reports new redness under b/l breasts. otherwise no new complaints) Review of Systems 10-point ROS is otherwise unremarkable Physical Examination - Vital Signs Temperature: 98.1 F Blood Pressure: 146/69 Pulse: 69 Respirations: 20 Pulse Ox (%): 0 Assessment & Plan Physician Review Additional Text: Physical Exam Gen: In no apparent distress HEENT: Mucous membr. moist/pink, normal conjunctiva Respiratory: Clear to auscultation bilaterally, Normal air movement Cardiovascular: No edema, Regular rate/rhythm, Normal S1 S2 Gastrointestinal: Normal bowel sounds, Soft and benign, Non-distended, No tenderness Musculoskeletal: No swelling Integumentary: No rashes Neurological: Left upper extremity and left lower extremity weakness Problem List Acute CVA Accelerated hypertension Basilar artery stenosis/occlusion Cerebral arterial aneurysm mild b/l intertrigo under breasts Continue aspirin and Plavix. Continue Lipitor. Continue folic acid MRI of the brain: Acute CVA in the right thalamus, posterior right basal ganglia and periventricular white matter adjacent to the right lateral ventricle. 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 Case discussed with neurology - pt to f/u as outpatient, possible procedure / further eval after initial recovery from this stroke PT evaluated. Patient has impaired mobility / difficulty with transfer Speech therapy - no issue with swallowing Anticipating disposition to rehab. start nystatin powder Social service to assist with arrangements for inpatient rehab anticipate dc in next 24hrs Time Spent Managing Pts Care (In Minutes): 35
[2021-01-13] MEDS: HYDRALAZINE HCL 20 MG/ML VIAL IV PRN (21:03)
[2021-01-13] MEDS: ATORVASTATIN 40 MG TAB PO SCH (21:03)
[2021-01-13] MEDS: ONDANSETRON 4 MG/2 ML VIAL IV PRN (22:26)
--- NOTE | 2021-01-14 07:21 | RAD REPORT ---
EXAM DESCRIPTION: [place] Single View01/14/2021 6:43 am CLINICAL HISTORY: Shortness of breath COMPARISON: January 09, 2021 FINDINGS: The lungs appear clear of acute infiltrate. The heart is mildly enlarged IMPRESSION: No acute abnormalities displayed
[2021-01-14] MEDS: CLOPIDOGREL 75 MG TABLET PO SCH (10:15)
[2021-01-14] MEDS: ASPIRIN EC 81 MG TAB PO SCH (10:15)
[2021-01-14] MEDS: FOLIC ACID 1 MG TABLET PO SCH (10:15)
[2021-01-14] MEDS: LIDOCAINE 4% PATCH TOP SCH (10:16)
[2021-01-14] MEDS: ENOXAPARIN 40 MG/0.4 ML SQ SCH (10:16)
--- NOTE | 2021-01-14 17:00 | P.PN ---
Subjective Date of Service: 01/14/21 Primary Care Provider: none Chief Complaint: L arm weakness Subjective: No new changes (without complaints, +Dementia, mild confusion, pleasant, still with L weakness) Review of Systems 10-point ROS is otherwise unremarkable Physical Examination - Vital Signs Temperature: 97.0 F Blood Pressure: 133/63 Pulse: 59 Respirations: 16 Pulse Ox (%): 98 Assessment & Plan Physician Review Additional Text: Physical Exam Gen: In no apparent distress HEENT: Mucous membr. moist/pink, normal conjunctiva Respiratory: Clear to auscultation bilaterally, Normal air movement Cardiovascular: Regular rate/rhythm, Normal S1 S2 Gastrointestinal: Soft and benign, Non-distended, No tenderness Musculoskeletal: No swelling Integumentary: No rashes Neurological: Left upper extremity and left lower extremity weakness Problem List Acute CVA Accelerated hypertension Basilar artery stenosis/occlusion Cerebral arterial aneurysm mild b/l intertrigo under breasts Continue aspirin and Plavix. Continue Lipitor. Continue folic acid MRI of the brain: Acute CVA in the right thalamus, posterior right basal ganglia and periventricular white matter adjacent to the right lateral ventricle. 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 Case discussed with neurology - pt to f/u as outpatient, possible procedure / further eval after initial recovery from this stroke PT evaluated. Patient has impaired mobility / difficulty with transfer Speech therapy - no issue with swallowing Anticipating disposition to rehab. started nystatin powder on 01/13 Social service to assist with arrangements for inpatient rehab anticipate dc in next 24hrs, awaiting final approval Time Spent Managing Pts Care (In Minutes): 35
[2021-01-14] MEDS: DOCUSATE NA 100 MG CAP PO SCH (17:47)
[2021-01-14] MEDS: ATORVASTATIN 40 MG TAB PO SCH (20:20)
[2021-01-14] MEDS: NYSTATIN PWDR 100000 UNIT/GM TOP SCH (20:21)
[2021-01-15 07:43] LABS: Absolute Lymphocytes (CBC) 1.8 K/uL (0.7-4.9); Basophils % 1.1 % (0-1.3); Hematocrit 34.2 % (36.0-45.0); Lymphocytes % 22.5 % (15.3-44.8); MPV 8.3 fL (7.6-11.3)
[2021-01-15 07:52] LABS: Potassium 4.3 mmol/L (3.5-5.1)
[2021-01-15 08:58] LABS: Blood Morphology Comment NOT SEEN (NOT SEEN); Platelet Estimate ADEQ
--- NOTE | 2021-01-15 09:17 | RAD REPORT ---
EXAM DESCRIPTION: RAD - Foot Right 3 View - 01/15/2021 9:03 am CLINICAL HISTORY: Right Big toe pain Pain and swelling COMPARISON: No comparisons FINDINGS: Prominent degenerative change involves the first metatarsal-phalangeal joint. Subtle corti vasu irregularity along the base of the distal phalanx the great toe medially may represent mild nondi splaced fracture. Suggest correlation with clinical point tenderness in this region. Small calcaneal spurs.
[2021-01-15] MEDS: LIDOCAINE 4% PATCH TOP SCH (09:21)
[2021-01-15] MEDS: ASPIRIN EC 81 MG TAB PO SCH (09:22)
[2021-01-15] MEDS: NYSTATIN PWDR 100000 UNIT/GM TOP SCH ×2 (09:22→20:25)
[2021-01-15] MEDS: ENOXAPARIN 40 MG/0.4 ML SQ SCH (09:22)
[2021-01-15] MEDS: CLOPIDOGREL 75 MG TABLET PO SCH (09:22)
[2021-01-15] MEDS: FOLIC ACID 1 MG TABLET PO SCH (09:22)
[2021-01-15] MEDS: DOCUSATE NA 100 MG CAP PO SCH (09:22)
--- NOTE | 2021-01-15 17:40 | P.PN ---
Subjective Date of Service: 01/15/21 Primary Care Provider: none Chief Complaint: L arm weakness Subjective: No new changes (doing ok today, reports R great toe pain over past several days, otherwise without other complaints) Review of Systems 10-point ROS is otherwise unremarkable Physical Examination - Vital Signs Temperature: 97.2 F Blood Pressure: 180/74 Pulse: 67 Respirations: 17 Pulse Ox (%): 94 Assessment & Plan Physician Review Additional Text: Physical Exam Gen: In no apparent distress HEENT: Mucous membr. moist/pink, normal conjunctiva Respiratory: Clear to auscultation bilaterally, Normal air movement Cardiovascular: Regular rate/rhythm, +III/ systolic murmur Gastrointestinal: Soft and benign, Non-distended, No tenderness MSK: R great toe - TTP at medial base of distal phalanx, TTP at metatarsal- phalangeal joint Neurological: Left upper extremity and left lower extremity weakness Problem List Acute CVA Hypertension Basilar artery stenosis/occlusion Cerebral arterial aneurysm mild b/l intertrigo under breasts R toe pain Continue aspirin and Plavix. Continue Lipitor. Continue folic acid MRI of the brain: Acute CVA in the right thalamus, posterior right basal ganglia and periventricular white matter adjacent to the right lateral ventricle. 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 Case discussed with neurology - pt to f/u as outpatient, possible procedure / further eval after initial recovery from this stroke PT evaluated. Patient has impaired mobility / difficulty with transfer Speech therapy - no issue with swallowing Anticipating disposition to rehab. started nystatin powder on 01/13 Social service to assist with arrangements for inpatient rehab anticipate dc in next 24hrs, awaiting final approval Time Spent Managing Pts Care (In Minutes): 35
[2021-01-15] MEDS: ATORVASTATIN 40 MG TAB PO SCH (20:25)
[2021-01-15] MEDS: HYDRALAZINE HCL 20 MG/ML VIAL IV PRN (20:25)
[2021-01-15] MEDS: ACETAMINOPHEN 500 MG TAB PO PRN (22:25)
[2021-01-16 05:50] LABS: Magnesium 2.1 mg/dL (1.8-2.4); Phosphorus 3.5 mg/dL (2.5-4.9)
--- NOTE | 2021-01-16 08:21 | ECHO ---
HEIGHT: 5 ft 0 in WEIGHT: 170 lb 14.4 oz DATE OF STUDY: 01/15/[address]: Ramos Morrison MD 2-DIMENSIONAL: YES M.MODE: YES DOPPLER: YES COLOR FLOW: YES TDS: YES PORTABLE: NO DEFINITY: NO BUBBLE STUDY: NO DIAGNOSIS: EVALUATE EJECTION FRACTION, RECENT CEREBRAL VASCULAR ACCIDENT, EVALUATE FOR THROMBUS CARDIAC HISTORY: CATHERIZATION: NO SURGERY: NO PROSTHETIC VALVE: NO PACEMAKER: NO MEASUREMENTS (cm) DIASTOLIC (NORMALS) SYSTOLIC (NORMALS) IVSd 1.0 (0.6-1.2) LA Diam 3.4 (1.9-4.0) LVEF 60-65% LVIDd 4.2 (3.5-5.7) LVIDs 2.6 (2.0-3.5) %FS 39% LVPWd 1.2 (0.6-1.2) Ao Diam 2.7 (2.0-3.7) 2 DIMENSIONAL ASSESSMENT: RIGHT ATRIUM: NORMAL LEFT ATRIUM: NORMLA RIGHT VENTRICLE: NORMAL LEFT VENTRICLE: NORMAL TRICUSPID VALVE: NORMAL MITRAL VALVE: MILD MITRAL ANNULAR CALCIFICATION PULMONIC VALVE: NORMAL AORTIC VALVE: CALCIFIED PERICARDIAL EFFUSION: NONE AORTIC ROOT: NORMAL LEFT VENTRICULAR WALL MOTION: NORMAL DOPPLER/COLOR FLOW: NORMAL COMMENTS: NORMAL LEFT VENTRICULAR EJECTION FRACTION 60-65%. CALCIFIED AORTIC VALVE WITH LIKELY SEVERE AORTIC STENOSIS. MILD DIASTOLIC DYSFUNCTION. TECHNOLOGIST: Jack BURDICK
[2021-01-16] MEDS: LIDOCAINE 4% PATCH TOP SCH (09:19)
[2021-01-16] MEDS: ASPIRIN EC 81 MG TAB PO SCH (09:20)
[2021-01-16] MEDS: CLOPIDOGREL 75 MG TABLET PO SCH (09:20)
[2021-01-16] MEDS: FOLIC ACID 1 MG TABLET PO SCH (09:20)
[2021-01-16] MEDS: DOCUSATE NA 100 MG CAP PO SCH (09:20)
[2021-01-16] MEDS: NYSTATIN PWDR 100000 UNIT/GM TOP SCH (09:21)
[2021-01-16] MEDS: ENOXAPARIN 40 MG/0.4 ML SQ SCH (09:21)
[2021-01-16 09:33] VITALS: O2SAT 94
[2021-01-16 16:17] VITALS: BP 141/66; TEMP 98.5
--- NOTE | 2021-01-16 20:26 | CON ---
Reason For Consultation: Consultation called because of stroke. History Of Present Illness: Ms. Harris is an 85-year-old patient with stroke risk factors of smokin g, hypertension, and dyslipidemia, who developed left arm weakness and fatigue on January 09, 2021 arou nd 12:30 p.m. She was found by her daughter and was noted to be unable to get up on her own. She ne eded assistance to stand. She did develop nausea, vomiting, and headache. She was brought to [facility] and got to the emergency room at 5:16 a.m., not in the window for tPA as her symptoms b mandi more than 5 hours previously. She had a head CT scan that showed no acute ischemic or hemorrhag ic changes, however, her subsequent brain MRI identified a 9 mm area of abnormal signal in the right thalamus including and extending to the posterior right basal ganglia and the periventricular white m atter adjacent to the right lateral ventricle, was overall consistent with acute stroke. MRA of her neck showed a 3 mm aneurysm in the distal left internal carotid artery with moderate basilar stenosis . The MRA of her brain showed a small aneurysm in the k[place] of [place], which was detected on CT ang iogram, and was poorly visualized on the examination actually due to artifact and there was moderate basilar artery arthrosclerotic narrowing present. She did have an echocardiogram, which showed eject ion fraction 60% to 65% with severe aortic stenosis. The patient was evaluated by the Physical Thera py service and determined to not be able to wake up enough to be able to participate in any form of [facility] acute physical therapy and this was actually on multiple occasions. She required 2 person assist to maintain upright position in bed and would only do it for 15 minutes to 20 minutes at a kahlil e. She is unable to stand and ambulate. This was actually discussed with the patient's daughter, mis sanders was in the room, and she was told that her mother would be more appropriate [facility] and that was set in motion. The patient's mother did requir e a COVID-19 vaccine before admission to long term and that was arranged. Past Medical History: As noted. Family History: Diabetes mellitus in mother and liver disease in father with cirrhosis. Social History: She has smoked in the past, drink alcohol and caffeinated beverages. Medications: Aspirin 81 mg daily, Plavix 75 mg daily, Lipitor 40 mg at bedtime, Colace 100 mg daily, Lovenox 40 mg subcutaneously daily, folate 1 mg daily, Apresoline as needed for blood pressure contr ol. Review of Systems: Other than mentioned above, no recent fevers or chills. No nausea or vomiting. There is generalized weakness, mild myalgias and arthralgias. Physical Examination: Vital Signs: Blood pressure 168/72, pulse 79, respiratory rate 16, temperature 98, oxygen saturation 94% on room air. Weight 107 pounds, height 5 feet, BMI 32.2. General: Ms. Harris is resting in bed. She is in no significant distress. HEENT: She is normocephalic, atraumatic. Sclerae anicteric. Oropharynx is moist. Neck: Supple. Chest: Clear. Extremities: No significant edema or cyanosis. Neurological: She is alert and responds appropriate to verbal interaction. Cranial nerve examinatio n shows subtle decrease of the left nasolabial fold with peer excursions on smiling, decreased sensat ion to the left face compared to the right side, otherwise intact cranial nerves. Motor examination in the left upper and lower extremities with subtle loss of sensation to touch and temperature and mi ld weakness compared to the left side. Reflexes depressed in the upper and lower extremities. Coord ination is intact, but slow in the left upper extremity. The left upper extremity has some dysmetria and the right is more intact. She is unable to stand and ambulate without maximum assistance, tends to fall over, and is very sleepy. Laboratory Studies: Complete blood count with differential essentially unremarkable except for sligh tly low hemoglobin and hematocrit. ESR elevated at 32. INR 1.07. Chemistries are unremarkable, glu cose 107, hemoglobin A1c 5.5. Liver function studies are normal. LDL cholesterol 252, total cholest robbie 330, HDL cholesterol 53, cholesterol to HDL ratio elevated at 6.23. TSH and free T4 are normal. Urinalysis shows trace of lysed blood, 1+ protein. COVID-19 test is negative. Assessment: Ms. Harris is an 85-year-old patient with a 9 mm stroke involving the right thalamus, r ight posterior basal ganglia, and periventricular white matter region with some left-sided deficits. She also is very sleepy and sedated, possibly due to the location of her stroke and will likely requ zamzam a longer period of recovery in a safe facility with physical therapy done more gently. She does have comorbid conditions including dyslipidemia, hypertension, chronic cigarette smoking. Plan: 1.She is going to long term to continue her recovery with physical therapy and occupational th erapy along with speech. 2.Aggressive management of her dyslipidemia. 3.Aggressive management of her hypertension. 4.These recommendations were discussed with the patient's daughter and she will be discharged today. GABRIEL/SONAM Voice ID: [id number] Report ID: [id number]
--- NOTE | 2021-01-17 21:18 | P.DS ---
Admission Date: 01/09/21 Discharge Date: 01/16/21 Primary Care Provider: none Disposition: TRANSFER TO INPATIENT REHAB Discharge Condition: GOOD Reason for Admission: L arm weakness Consultations: Neurology - Dr. Clayton Procedures: CT Brain (01/09): No acute intracranial abnormality. Continued clinical complaint or concern may benefit by MRI brain followup. CXR (01/09): lungs are grossly clear. The heart is normal in size. No displaced fractures. CTA Head (01/09): 3 mm aneurysm of the left carotid terminus. Moderate stenosis of basilar artery estimated at 70%. CTA Neck (01/09): Right carotid bulb narrowing is noted caused by mixed plaque estimated at 50-70% based on NASCET criteria. Moderate atherosclerotic narrowing is seen of the left subclavian artery origin. X-ray wrist (01/11): The bones are osteoporotic. Mild osteoarthritis involves scaphotrapezium joint and first carpometacarpal joint consisting of subchondral sclerosis MRI Brain (01/12): 9 millimeter area of abnormal signal is present within the right thalamus, posterior right basal ganglia and periventricular white matter adjacent to the right lateral ventricle consistent with acute infarction MRA Brain (11/14): Motion degradation limits the quality of the examination. The small aneurysm detected on CT angiography yurok [place] (01/09/2021) is poorly visualized on this examination due to this artifact. Moderate basilar artery atherosclerotic narrowing is present. MRA Neck (01/12): 3 millimeter aneurysm distal left internal carotid artery. Moderate basilar stenosis CXR (01/14): The lungs appear clear of acute infiltrate. The heart is mildly enlarged X-ray Foot (01/15): Prominent degenerative change involves the first metatarsal- phalangeal joint. Subtle cortical irregularity along the base of the distal ph alanx the great toe medially may represent mild nondisplaced fracture. Suggest correlation with clinical point tenderness in this region. Small calcaneal spurs. TTE (01/15): normal LVEF: 60-65%, calcified aortic valve with likely severe aortic stenosis. mild diastolic dysfunction. Problem List Acute CVA (9mm right thalamus, posterior right basal ganglia, and periventricular white matter adjacent to R lateral ventricle) Hypertension Basilar artery stenosis/occlusion Cerebral arterial aneurysm mild b/l intertrigo under breasts nondisplaced fracture of R great toe suspected severe aortic stenosis Brief History of Present Illness: Ms. Harris is an 85 yo female who presents today with weakness in her left arm and fatigue. Her daughter reports today at 1230pm she found her mother was weak and was unable to get up on her own. She had not fallen but needed assistance to the couch. She had one episode of nausea and vomiting and reports a headache. Denies vision changes, aphasia, ataxia, sensory changes, and dizziness. Former smoker, quit 10-15 years ago. Cholesterol 330. LDL 252. Ct Head wnl. Hospital Course: Patient underwent further imaging as noted above revealing the acute CVA, basilar artery stenosis, and likely severe aortic stenosis. She slowly had some mild improvement. She was evaluated by PT and patient was discharged to SNF for ongoing care / physical therapy. The echocardiogram did not have the best images, however, findings were suggestive of severe aortic stenosis. Patient's family did report she would get dizzy/lightheaded when she would exert herself / stand up over the last several months. She is to f/u with Dr. Mensah in the next month to further review options She reported R great toe pain and R 1st metatarsal head pain - x-ray revealed a mild nondisplaced fracture and osteoarthritic changes of her metatarsal-p halangeal joint. Vital Signs/Physical Exam: Physical Exam Gen: In no apparent distress HEENT: Mucous membr. moist/pink, normal conjunctiva Respiratory: Clear to auscultation bilaterally, Normal air movement Cardiovascular: Regular rate/rhythm, +III/ systolic murmur Gastrointestinal: Soft and benign, Non-distended, No tenderness MSK: R great toe - TTP at medial base of distal phalanx, TTP at metatarsal- phalangeal joint Neurological: Left upper extremity and left lower extremity weakness Temp Pulse Resp BP Pulse Ox 98.5 F 62 16 141/66 H 91 01/16/21 16:00 01/16/21 16:00 01/16/21 16:00 01/16/21 16:00 01/16/21 16:00 Laboratory Data at Discharge: WBC 8.00 K/uL (4.3-10.9) 01/15/21 07:23 Hgb 11.4 g/dL (12.0-15.0) L 01/15/21 07:23 Hct 34.2 % (36.0-45.0) L 01/15/21 07:23 Plt Count 339 K/uL (152-406) 01/15/21 07:23 PT 12.3 SECONDS (9.5-12.5) 01/09/21 17:25 INR 1.07 01/09/21 17:25 Sodium 139 mmol/L (136-145) 01/16/21 05:20 Potassium 4.0 mmol/L (3.5-5.1) 01/16/21 05:20 BUN 19 mg/dL (7-18) H 01/16/21 05:20 Creatinine 0.71 mg/dL (0.55-1.3) 01/16/21 05:20 Glucose 102 mg/dL (74-106) 01/16/21 05:20 Phosphorus 3.5 mg/dL (2.5-4.9) 01/16/21 05:20 Magnesium 2.1 mg/dL (1.8-2.4) 01/16/21 05:20 Total Bilirubin 0.6 mg/dL (0.2-1.0) 01/10/21 05:28 AST 16 U/L (15-37) 01/10/21 05:28 ALT 23 U/L (12-78) 01/10/21 05:28 Alkaline Phosphatase 67 U/L (45-117) 01/10/21 05:28 Triglycerides 127 mg/dL (<150) 01/09/21 17:25 Cholesterol 330 mg/dL (<200) H 01/09/21 17:25 HDL Cholesterol 53 mg/dL (40-60) 01/09/21 17:25 Cholesterol/HDL Ratio 6.23 01/09/21 17:25 Home Medications: Aspirin [Aspirin EC 81 MG] 81 mg PO DAILY 30 Days #30 tablet. 01/13/21 Atorvastatin Calcium [Lipitor] 40 mg PO BEDTIME 30 Days #30 tab 01/13/21 Clopidogrel Bisulfate [Plavix*] 75 mg PO DAILY 30 Days #30 tablet 01/13/21 Folic Acid 1 mg PO DAILY 30 Days #30 tablet 01/13/21 Nystatin Powder [Mycostatin (Powder)*] 1 appl TOP DAILY PRN 21 Days #1 btl 01/13/21 New Medications: Aspirin [Aspirin EC 81 MG] 81 mg PO DAILY 30 Days #30 tablet. Folic Acid 1 mg PO DAILY 30 Days #30 tablet Atorvastatin Calcium [Lipitor] 40 mg PO BEDTIME 30 Days #30 tab Nystatin Powder [Mycostatin (Powder)*] 1 appl TOP DAILY PRN 21 Days #1 btl PRN Reason: Rash Clopidogrel Bisulfate [Plavix*] 75 mg PO DAILY 30 Days #30 tablet Physician Discharge Instructions: Your new left sided weakness was found to be due a new stroke located in your right thalamus and posterior right basal ganglia. You were noted to have moderate basilar artery atherosclerotic narrowing which may have contributed to your stroke. You will need to follow up with Neurology (Dr. Clayton) in ~1 month, at that time you can further discuss next steps regarding this narrowing. You may possibly need a procedure done in a few months - once you recover from this stroke. You were also found to likely have severe aortic stenosis - narrowing of your aortic valve. Please follow up with Dr. Mensah in a few weeks to discuss further treatment options. Your were also found to have a mild nondisplaed fracture for your right great toe. Recommend wearing a postop shoe as needed for pain. No restrictions otherwise. You can continue to bear weight as tolerated. Follow up with Orthopedic Surgery in a few weeks if pain persists. Diet: AHA Activity: Fall precautions Followup: Femi Clayton MD [ASSOCIATE-ACTIVE - CAN ADMIT] - (follow up in 1 month ) NONE,NONE [Primary Care Provider] - Time spent managing pt's care (in minutes): 35
== END 2021-01-16 16:56 | DRG 65 ==
LOC: ER 17:06 → ERHOLD 19:18 → 2ND 22:34
PROVIDERS: ADMIT Internal Medicine; ATTEND Hospitalist
DX: I63.9 Cerebral infarction, unspecified (principal); G81.94 Hemiplegia, unspecified affecting left nondominant side; I10 Essential (primary) hypertension; E78.00 Pure hypercholesterolemia, unspecified; F03.90 Unspecified dementia, unspecified severity, without behavioral disturbance, psychotic disturbance, mood disturbance, and anxiety; I65.1 Occlusion and stenosis of basilar artery; I35.0 Nonrheumatic aortic (valve) stenosis; E78.5 Hyperlipidemia, unspecified; M19.071 Primary osteoarthritis, right ankle and foot; L30.4 Erythema intertrigo; I67.1 Cerebral aneurysm, nonruptured; S92.404A Nondisplaced unspecified fracture of right great toe, initial encounter for closed fracture; R29.709 NIHSS score 9; Z87.891 Personal history of nicotine dependence; Z79.82 Long term (current) use of aspirin; Z79.02 Long term (current) use of antithrombotics/antiplatelets; Z79.899 Other long term (current) drug therapy; Z20.822 Contact with and (suspected) exposure to COVID-19
CPT/HCPCS: 36415; 70450; 70496; 70498; 70544; 70549; 70553; 71045; 80048; 80053; 80061; 80076; 81003; 83036; 83735; 83880; 84100; 84132; 84439; 84443; 84484; 85025; 85610; 85652; 86140; 87086; 87088; 92610; 93005; 93306; 94760; 96374; 97110; 97112; 97162; 97530; 99285; A9577; J0360; J1650; J2405; J7030; J7040; Q9967; U0003

== ENCOUNTER 2021-09-17 10:10 | Emergency (ER) | payer OTHER ==
--- NOTE | 2021-09-17 15:55 | ER ---
Nurse's Notes [facility] Name: Tamanna Harris Age: 86 yrs Sex: Female : 1935 Arrival Date: 09/17/2021 Time: 10:14 Bed Waiting Private MD: Jabari Iqbal E Diagnosis: Presentation: 09/17 10:22 Chief complaint: Patient states: +covid on 09-13-2021. O2 goes down below 90. gerard Coronavirus screen: Vaccine status: Patient reports receiving the 2nd dose of the covid vaccine. Client reports previous positive COVID test result. Ebola Screen: Patient denies travel to an Ebola-affected area in the 21 days before illness onset. Initial Sepsis Screen: Does the patient meet any 2 criteria? No. Patient's initial sepsis screen is negative. Does the patient have a suspected source of infection? No. Patient's initial sepsis screen is negative. Risk Assessment: Do you want to hurt yourself or someone else? Patient reports no desire to harm self or others. Onset of symptoms was September 13, 2021. 10:22 Method Of Arrival: Ambulatory 10:22 Acuity: ROBERT 3 gerard Triage Assessment: 10:24 General: Appears in no apparent distress. Behavior is calm, cooperative. gerard Historical: - Allergies: 10:24 Cipro; gerard - Home Meds: 10:24 aspirin 81 mg Oral cpDR 81 mg [Active]; atorvastatin 40 mg Oral tab 1 tab once daily gerard [Active]; clopidogrel 75 mg Oral tab 1 tab once daily [Active]; famotidine 40 mg Oral tab 1 tab once daily [Active]; sertraline 50 mg Oral tab 1 tab once daily [Active]; gentamicin 0.3 % Opht drop 1 drop every 4 hours [Active]; gabapentin 100 mg Oral tab daily [Active]; folic acid 0.8 mg Oral cap [Active]; - PMHx: 10:24 CVA; depressive disorder; LEFT SIDED WEAKNESS; gerard - Immunization history:: Adult Immunizations up to date. - Social history:: Patient uses Smoking status: Patient denies any tobacco usage or history of. Assessment: 10:36 Reassessment: ekg completed 1033. gerard Vital Signs: 10:22 BP 133 / 73; Pulse 77; Resp 18; Temp 97.7(O); Pulse Ox 93% on R/A; Weight 68.04 kg; gerard Height 4 ft. 11 in. (149.86 cm); 10:22 Body Mass Index 30.30 (68.04 kg, 149.86 cm) gerard ED Course: 10:14 Patient arrived in ED. as 10:14 Jabari Iqbal MD is Private Physician. as 10:24 Triage completed. gerard 10:24 Arm band placed on right wrist. gerard Administered Medications: No medications were administered Outcome: 15:54 Patient left the ED. gerard Signatures: Kerri Orellana Au-StagerFariha gerard
[2021-09-17 16:02] VITALS: BP 133/73; TEMP 97.7; O2SAT 93
== END 2021-09-17 15:54 | disposition left against medical advice (07) ==
LOC: ER 10:10
DX: Z53.21 Procedure and treatment not carried out due to patient leaving prior to being seen by health care provider (principal)
CPT/HCPCS: 93005; 99281

== ENCOUNTER 2021-09-19 08:00 | Inpatient (IN) | payer OTHER ==
[2021-09-19 08:54] LABS: Lymphocytes % 19.7 % (15.3-44.8); MPV 7.4 fL (7.6-11.3); RBC Red Blood Cell Count 3.31 M/uL (3.86-4.86)
[2021-09-19] MEDS ORDERED: FAMOTIDINE 20 MG/2 ML VIAL IV ONE ×2 (08:55→22:22)
[2021-09-19] MEDS ORDERED: AZITHROMYCIN 500 MG INJ IVPB ONE (08:55)
[2021-09-19] MEDS ORDERED: NA CHLORIDE 0.9% 200 ML ONE (08:55)
[2021-09-19] MEDS ORDERED: NA CHLORIDE 0.9% 1,000 ML ONE (08:55)
[2021-09-19] MEDS ORDERED: CEFTRIAXONE 1000 MG/VIAL ONE (08:55)
[2021-09-19 08:56] LABS: Protime INR 1.18
--- NOTE | 2021-09-19 08:56 | RAD REPORT ---
EXAM DESCRIPTION: RAD - Chest Single View - 09/19/2021 8:36 am CLINICAL HISTORY: Cough;Congestion COMPARISON: September 13 TECHNIQUE: AP portable chest image was obtained 09/19/2021 8:36 am . FINDINGS: Patient has significant baseline interstitial pattern is accentuated by shallow inspiratio n. The diffuse mild interstitial edema or infiltrate is suspected. The patient has more focal airspac e opacification in the right upper lobe consistent with pneumonia. Heart and vasculature are normal. No measurable pleural effusion and no pneumothorax. No acute bony abnormality seen. No acute aortic findings suspected. IMPRESSION: Right upper lobe pneumonia findings. Diffusely prominent interstitial markings from comparison. This could indicate superimposed interstit ial edema or viral infiltrate. Atypical presentation of COVID-19 pneumonia cannot be excluded.
[2021-09-19 09:14] LABS: ALT/SGPT 23 U/L (12-78); AST/SGOT 24 U/L (15-37); Albumin 2.6 g/dL (3.4-5.0); Alkaline Phosphatase 112 U/L (45-117); BUN Blood Urea Nitrogen 9 mg/dL (7-18); Bicarbonate 26 mmol/L (21-32); Bilirubin Direct 0.2 mg/dL (0-0.2); Bilirubin Total 0.5 mg/dL (0.2-1.0); Ferritin 1403.7 ng/mL (8-388); Glucose Level 115 mg/dL (74-106); Magnesium 1.5 mg/dL (1.8-2.4); NT PRO-BNP 1003 pg/mL (<450); Protein, Total 6.6 g/dL (6.4-8.2); Sodium Level 137 mmol/L (136-145); Troponin (Emerg Dept Use Only) < 0.02 ng/mL (0.0-0.045)
[2021-09-19 09:18] LABS: Potassium 2.9 mmol/L (3.5-5.1)
--- NOTE | 2021-09-19 09:55 | EDPHYS ---
Physician Documentation [facility] Name: Tamanna Harris Age: 86 yrs Sex: Female : 1935 Arrival Date: 09/19/2021 Time: 08:15 Bed 15 Private MD: BELLE Physician Pasha Medel HPI: 09/19 09:44 This 86 yrs old Female presents to ER via EMS with complaints of dyspnea, estefany hypoxia and covid positive. 09:44 The patient has shortness of breath with light activity. Onset: The symptoms/episode estefany began/occurred 7 day(s) ago. Duration: The symptoms are continuous, and are steadily getting worse. The patient's shortness of breath is aggravated by coughing, exertion, light activity, is alleviated by rest, sitting up, application of supplemental oxygen. The patient or guardian reports cough, that is intermittent, difficulty breathing, flu symptoms, arthralgias, low-grade fever, myalgias, hoarse voice. Modifying factors: The symptoms are alleviated by nothing. the symptoms are aggravated by nothing. Associated signs and symptoms: Pertinent positives: non-productive cough, fever. Associated signs and symptoms: Pertinent positives: chest pain, fever, nausea, rhinorrhea. 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 - Social history:: Smoking status: Patient denies any tobacco usage or history of. - Family history:: not pertinent. ROS: 09:44 Constitutional: Negative for fever, chills, and weight loss, Eyes: Negative for injury, estefany pain, redness, and discharge, ENT: Negative for injury, pain, and discharge, Neck: Negative for injury, pain, and swelling, Cardiovascular: Negative for chest pain, palpitations, and edema, Abdomen/GI: Negative for abdominal pain, nausea, vomiting, diarrhea, and constipation, Back: Negative for injury and pain, : Negative for injury, bleeding, discharge, and swelling, MS/Extremity: Negative for injury and deformity, Skin: Negative for injury, rash, and discoloration, Neuro: Negative for headache, weakness, numbness, tingling, and seizure, Psych: Negative for depression, anxiety, suicide ideation, homicidal ideation, and hallucinations, Allergy/Immunology: Negative for hives, rash, and allergies, Endocrine: Negative for neck swelling, polydipsia, polyuria, polyphagia, and marked weight changes, Hematologic/Lymphatic: Negative for swollen nodes, abnormal bleeding, and unusual bruising. 09:44 Respiratory: Positive for cough, shortness of breath, wheezing, expiratory. Exam: 09:44 Constitutional: This is a well developed, well nourished patient who is awake, alert, estefany and in no acute distress. Head/Face: Normocephalic, atraumatic. Eyes: Pupils equal round and reactive to light, extra-ocular motions intact. Lids and lashes normal. Conjunctiva and sclera are non-icteric and not injected. Cornea within normal limits. Periorbital areas with no swelling, redness, or edema. ENT: Nares patent. No nasal discharge, no septal abnormalities noted. Tympanic membranes are normal and external auditory canals are clear. Oropharynx with no redness, swelling, or masses, exudates, or evidence of obstruction, uvula midline. Mucous membranes moist. Neck: Trachea midline, no thyromegaly or masses palpated, and no cervical lymphadenopathy. Supple, full range of motion without nuchal rigidity, or vertebral point tenderness. No Meningismus. Chest/axilla: Normal chest wall appearance and motion. Nontender with no deformity. No lesions are appreciated. Abdomen/GI: Soft, non-tender, with normal bowel sounds. No distension or tympany. No guarding or rebound. No evidence of tenderness throughout. Back: No spinal tenderness. No costovertebral tenderness. Full range of motion. Female : Normal external genitalia. Skin: Warm, dry with normal turgor. Normal color with no rashes, no lesions, and no evidence of cellulitis. MS/ Extremity: Pulses equal, no cyanosis. Neurovascular intact. Full, normal range of motion. Neuro: Awake and alert, GCS 15, oriented to person, place, time, and situation. Cranial nerves II-XII grossly intact. Motor strength 5/5 in all extremities. Sensory grossly intact. Cerebellar exam normal. Normal gait. Psych: Awake, alert, with orientation to person, place and time. Behavior, mood, and affect are within normal limits. 09:44 Cardiovascular: Rate: normal, Rhythm: regular, Pulses: Pulses are 4+ in bilateral radial, brachial, femoral, popliteal, posterior tibial and and dorsalis pedis arteries.. Heart sounds: murmur, not appreciated, rub, not appreciated, gallop, not appreciated, Edema: is not appreciated, JVD: is not appreciated. 09:44 ECG was reviewed by the Attending Physician. Vital Signs: 08:18 BP 160 / 63; Pulse 72; Resp 18; Temp 99.1(A); Pulse Ox 95% on 3 lpm NC; Weight 68.04 kg ww (R); Height 5 ft. 5 in. (165.10 cm); Pain 8/10; 09:15 BP 157 / 50; Pulse 62; Resp 18; Pulse Ox 94% on 3 lpm NC; ww 10:15 BP 135 / 55; Pulse 76; Resp 16; Pulse Ox 93% on 3 lpm NC; ww 12:43 BP 82 / 78; Pulse 88; Resp 16; Pulse Ox 94% on 3 lpm NC; ww 13:17 BP 143 / 68; Pulse 89; Resp 16; Pulse Ox 93% on 3 lpm NC; ww 15:16 BP 158 / 76; Pulse 83; Resp 18; Pulse Ox 95% on 3 lpm NC; ww 09/20 06:25 BP 145 / 69; Pulse 58; Resp 28; Pulse Ox 91% on 2 lpm NC; as6 13:00 BP 159 / 77 LA; Pulse 64; Resp 19; Pulse Ox 93% on R/A; Pain 0/10; eo2 14:30 BP 168 / 72; Pulse 65; Resp 22; Pulse Ox 94% on R/A; Pain 0/10; eo2 17:35 BP 159 / 76; Pulse 73; Resp 17; Temp 98.0; Pulse Ox 93% on R/A; Pain 0/10; eo2 09/19 08:18 Body Mass Index 24.96 (68.04 kg, 165.10 cm) ww MDM: 09/19 08:16 Patient medically screened. estefany 09:49 Differential diagnosis: Anemia Anxiety Reaction asthma, Bronchitis CHF exacerbation, estefany Chronic Obstructive Pulmonary Disease bronchitis, flu, URI, viral Infection, bacterial infection, URI, bronchitis, UTI, pneumonia, pulmonary edema, Pulmonary Embolism. Antibiotic administration: Rocephin and Zithromax given. The patient's Wells Deep Vein Thrombosis Score was calculated as follows: Total Score: 0-2 Pts- Low Risk. The patient's pulmonary embolism risk score was calculated as follows: Total Score: 0-2 points. This patient was found to be at low risk for a pulmonary embolism by using the Well's assessment criteria. Immunization status: Pneumococcal vaccine: Influenza vaccine: Data reviewed: vital signs, nurses notes, lab test result(s), EKG, radiologic studies, CT scan, plain films. Data interpreted: vehicle monitor technician: rate is 95 beats/min, rhythm is regular, Pulse oximetry: on room air is 95 %. Test interpretation: by ED physician or midlevel provider: ECG, plain radiologic studies. Counseling: I had a detailed discussion with the patient and/or guardian regarding: the historical points, exam findings, and any diagnostic results supporting the discharge/admit diagnosis, the presence of at least one elevated blood pressure reading (>120/80) during this emergency department visit, lab results, radiology results, the need for further work-up and treatment in the hospital. 09/19 08:26 Order name: Troponin (emerg Dept Use Only); Complete Time: 09:39 estefany 09/19 08:26 Order name: Blood Culture Adult (2) estefany 09/19 08:26 Order name: Ferritin; Complete Time: 09:39 estefany 09/19 08:26 Order name: CRP; Complete Time: 09:39 estefany 09/19 08:26 Order name: Lactate; Complete Time: 09:39 estefany 09/19 08:26 Order name: Procalcitonin; Complete Time: 09:39 estefany 09/19 08:26 Order name: D-Dimer; Complete Time: 09:06 [facility] 09/19 08:26 Order name: Basic Metabolic Panel; Complete Time: 09:39 EDMS 09/19 08:26 Order name: XRAY Chest (1 view); Complete Time: 09:06 estefany 09/19 08:26 Order name: CBC with Automated Diff; Complete Time: 09:06 EDMS 09/19 08:27 Order name: Liver (Hepatic) Function; Complete Time: 09:39 EDMS 09/19 08:27 Order name: Magnesium; Complete Time: 09:39 EDMS 09/19 08:27 Order name: NT PRO-BNP; Complete Time: 09:39 EDMS 09/19 08:27 Order name: Protime (+INR); Complete Time: 09:06 EDMS 09/20 05:17 Order name: CBC with Automated Diff EDMS 09/20 05:36 Order name: Comprehensive Metabolic Panel EDMS 09/20 05:36 Order name: Phosphorus EDMS 09/20 05:36 Order name: Lipid Profile EDMS 09/20 05:36 Order name: C-Reactive Protein EDMS 09/20 05:36 Order name: Magnesium EDMS 09/20 05:36 Order name: Ferritin EDMS 09/20 09:02 Order name: Manual Differential EDMS 09/20 11:21 Order name: Gram Stain--Aerobic Bottle EDMS 09/20 11:21 Order name: Gram Stain--Anaerobic Bottle EDMS 09/19 08:26 Order name: EKG; Complete Time: 08:27 estefany 09/19 08:26 Order name: Cardiac monitoring; Complete Time: 08:42 estefany 09/19 08:26 Order name: EKG - Nurse/Tech; Complete Time: 10:19 estefany 09/19 08:26 Order name: IV Saline Lock; Complete Time: 08:42 [facility] 09/19 08:26 Order name: Labs collected and sent; Complete Time: 08:42 [facility] 09/19 08:26 Order name: O2 Per Protocol; Complete Time: 09:26 estefany 09/19 08:26 Order name: O2 Sat Monitoring; Complete Time: 09:26 [facility] EC:21 Rate is 69 beats/min. Rhythm is regular. QRS [place] is Normal. ND interval is normal. QRS estefany interval is normal. QT interval is normal. No Q waves. T waves are Normal. No ST changes noted. Clinical impression: NSR w/ Non-specific ST/T Changes and No evidence of ischemia. Interpreted by me. Reviewed by me. Administered Medications: 09:40 Discontinued: NS 0.9% 1000 ml IV at 125 ml/hr continuous [facility] : Drug: NS 0.9% 1000 ml Route: IV; Rate: 125 ml/hr; Site: right antecubital; 13:24 Follow up: Response: No adverse reaction; IV Status: Order to discontinue infusion Drug: Rocephin (cefTRIAXone) 1 grams Route: IV; Rate: per protocol; Site: right antecubital; 13:23 Follow up: Response: No adverse reaction; IV Status: Completed infusion Drug: Pepcid (famotidine) 20 mg Route: IVP; Site: right antecubital; ww 13:22 Follow up: Response: No adverse reaction ww 09:51 Drug: Zithromax (azithromycin) 500 mg Route: IVPB; Infused Over: 1 hrs; Site: right ww antecubital; 10:55 Follow up: Response: No adverse reaction; IV Status: Completed infusion ww 10:51 Drug: Xopenex (levalbuterol) 2.5 mg Route: Inhalation; ww 13:21 Follow up: Response: No adverse reaction ww 11:20 Drug: AtroVENT (ipratropium) Aerosol 0.5 mg Route: Inhalation; ww 13:20 Follow up: Response: No adverse reaction ww 11:35 Drug: Magnesium Sulfate 1 grams Route: IVPB; Infused Over: 1 hrs; Site: right ww antecubital; 12:44 Drug: SOLU-Medrol (methylPrednisoLONE) 125 mg Route: IVP; Site: right antecubital; ww 13:21 Follow up: Response: No adverse reaction ww 13:30 Drug: Lasix (furosemide) 20 mg Route: IVP; Site: right antecubital; ww 13:36 Not Given (Physician Discretion): NS 0.9% with KCl 20 mEq/L 1000 ml IV at 100 ml/hr ww continuous 13:36 Drug: Xopenex (levalbuterol) 1.25 mg Route: Inhalation; ww 13:37 Drug: Potassium Chloride 20 mEq Route: IV; Rate: per protocol; Site: right antecubital; ww Disposition Summary: 09/19/21 09:55 Hospitalization Ordered Hospitalization Status: Observation estefany Provider: Andrea Uribe cha Condition: Fair estefany Problem: new estefany Symptoms: have improved estefany Bed/Room Type: Standard estefany Location: Telemetry/MedSurg (Inpatient)(09/20/21 19:22) Room Assignment: 401(09/20/21 19:22) Diagnosis - Coronavirus infection, unspecified estefany - Pneumonia due to SARS-associated coronavirus estefany - Dyspnea estefany - Hypoxemia estefany - Hypokalemia estefany - Hypomagnesemia estefany Forms: - Medication Reconciliation Form estefany - SBAR form estefany Signatures: Dispatcher [employer] EDMS Gilda Sifuentes RN RN mw Anderson, Corey, MD MD cha Williams, Irene, RN RN Alivia Elizondo RN RN ww Corrections: (The following items were deleted from the chart) 09:55 Telemetry/MedSurg (Inpatient) estefany iw 09:55 estefany iw 09/20 19:09/19 14:11 [facility] 09[facility]20 [facility]09[facility]
--- NOTE | 2021-09-19 09:55 | ER ---
Nurse's Notes [facility] Name: Tamanna Harris Age: 86 yrs Sex: Female : 1935 Arrival Date: 09/19/2021 Time: 08:15 Bed 15 Private MD: Diagnosis: Coronavirus infection, unspecified;Pneumonia due to SARS-associated coronavirus;Dyspnea;Hypoxemia;Hypokalemia;Hypomagnesemia Presentation: 09/19 08:18 Chief complaint: EMS states: Low O2 sat on home O2 of 85% on room air. EMS applied ww 3LNC. When daughter arrived she stated patient was COVID positive on Tuesday. Coronavirus screen: chills, difficulty breathing, fatigue, fever, muscle pain. Ebola Screen: Patient negative for fever greater than or equal to 101.5 degrees Fahrenheit, and additional compatible Ebola Virus Disease symptoms Patient denies exposure to infectious person. Patient denies travel to an Ebola-affected area in the 21 days before illness onset. Initial Sepsis Screen: Does the patient meet any 2 criteria? No. Patient's initial sepsis screen is negative. Does the patient have a suspected source of infection? No. Patient's initial sepsis screen is negative. Risk Assessment: Do you want to hurt yourself or someone else? Patient reports no desire to harm self or others. Onset of symptoms was September 12, 2021. 08:18 Method Of Arrival: EMS 08:18 Acuity: ROBERT 3 ww Triage Assessment: 08:22 General: Appears uncomfortable, Behavior is restless. Pain: Complains of pain in ww generalized aches. EENT: No deficits noted. Neuro: Level of Consciousness is awake, alert, Oriented to person, place, time, situation, Advertising Solicitor are weak on left. Cardiovascular: Capillary refill < 3 seconds. Respiratory: Airway is patent Respiratory effort is even, unlabored, Respiratory pattern is regular, symmetrical, Breath sounds are coarse bilaterally. GI: Abdomen is non-distended, Abd is soft and non tender X 4 quads. : diapered. Derm: Skin is thin, Skin is dry, Skin temperature is hot. 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 - Social history:: Smoking status: Patient denies any tobacco usage or history of. - Family history:: not pertinent. Assessment: 09:30 Reassessment: No changes from previously documented assessment. Patient and/or family ww updated on plan of care and expected duration. Pain level reassessed. 10:30 Reassessment: Patient appears in no apparent distress at this time. No changes from ww previously documented assessment. Patient and/or family updated on plan of care and expected duration. Pain level reassessed. 11:30 Reassessment: Patient and/or family updated on plan of care and expected duration. Pain ww level reassessed. Respiratory: Airway is patent Respiratory effort is even, unlabored, Respiratory pattern is regular, Breath sounds with wheezes. 12:30 Reassessment: No changes from previously documented assessment. Patient and/or family ww updated on plan of care and expected duration. Pain level reassessed. 13:30 Reassessment: Patient appears in no apparent distress at this time. Patient states ww feeling better. Neuro: Level of Consciousness is awake, alert, Oriented to none confused. 14:30 Reassessment: Patient appears in no apparent distress at this time. Patient and/or ww family updated on plan of care and expected duration. Pain level reassessed. Respiratory: Breath sounds with wheezes wheezing improving. 09/20 06:26 General: pt has slept all night with no complaints or concerns, breathing is even and as6 non labored with intermittent cough, pt receiving oxygen via nasal cannula . 09:00 Reassessment: Per respiratory therapist, pt with 90% O2sat on RA, no NC O2 needed if pt eo2 maintains this saturation on RA. 11:30 Reassessment: Morning meds provided, gown, diaper, and linen changed, breakfast eo2 provided, pt in NAD. Will continue to monitor. Morning vitals entered in [facility] by Cindy MORA. 13:44 Reassessment: Physical Therapist came to bedside to dinorah, states pt is weak on her left eo2 side, and leans towards her right when sitting up, pt should be maintained on bedrest per physical therapist. Lunch tray provided. 16:04 Reassessment: Pt's daughter at bedside. eo2 17:44 Reassessment: Pt's diaper changed, buttpaste brought by daughter placed on pt. Pt eo2 offered dinner tray, states she's not hungry at this time. 18:20 Reassessment: Pt appears to be sun-[place], requesting to go home, attempting to get eo2 OOB, states "I know it's my that wanted to kill me that brought me here". Pt reoriented and reassured, pt close to nurses's station,will continue to monitor. Vital Signs: 09/19 08:18 BP 160 / 63; Pulse 72; Resp 18; Temp 99.1(A); Pulse Ox 95% on 3 lpm NC; Weight 68.04 kg ww (R); Height 5 ft. 5 in. (165.10 cm); Pain 8/10; 09:15 BP 157 / 50; Pulse 62; Resp 18; Pulse Ox 94% on 3 lpm NC; ww 10:15 BP 135 / 55; Pulse 76; Resp 16; Pulse Ox 93% on 3 lpm NC; ww 12:43 BP 82 / 78; Pulse 88; Resp 16; Pulse Ox 94% on 3 lpm NC; ww 13:17 BP 143 / 68; Pulse 89; Resp 16; Pulse Ox 93% on 3 lpm NC; ww 15:16 BP 158 / 76; Pulse 83; Resp 18; Pulse Ox 95% on 3 lpm NC; ww 09/20 06:25 BP 145 / 69; Pulse 58; Resp 28; Pulse Ox 91% on 2 lpm NC; as6 13:00 BP 159 / 77 LA; Pulse 64; Resp 19; Pulse Ox 93% on R/A; Pain 0/10; eo2 14:30 BP 168 / 72; Pulse 65; Resp 22; Pulse Ox 94% on R/A; Pain 0/10; eo2 17:35 BP 159 / 76; Pulse 73; Resp 17; Temp 98.0; Pulse Ox 93% on R/A; Pain 0/10; eo2 09/19 08:18 Body Mass Index 24.96 (68.04 kg, 165.10 cm) ED Course: 09/19 08:15 Patient arrived in ED. iw 08:16 Pasha Medel MD is Attending Physician. estefany 08:18 Alivia Elizondo, RN is Primary Nurse. ww 08:21 Triage completed. ww 08:22 Arm band placed on left wrist. ww 08:25 Patient has correct armband on for positive identification. Fall risk band placed. Bed ww in low position. Call light in reach. Side rails up X2. 08:25 by me, sent to lab. Inserted saline lock: 20 gauge in right antecubital area, using aseptic technique. Blood collected. 08:36 XRAY Chest (1 view) In Process Unspecified. EDMS 09:53 Andrea Uribe is Hospitalizing Provider. estefany 10:19 First set of blood cultures drawn Second set of blood cultures drawn by ED staff, EKG mh5 done, by ED staff, reviewed by Pasha Medel MD. 15:08 changed diapered and reposition. ww 09/20 19:12 Primary Nurse role handed off by Alivia Elizondo, ABBY eb Administered Medications: 09/19 09:40 Discontinued: NS 0.9% 1000 ml IV at 125 ml/hr continuous estefany 09:26 Drug: NS 0.9% 1000 ml Route: IV; Rate: 125 ml/hr; Site: right antecubital; 13:24 Follow up: Response: No adverse reaction; IV Status: Order to discontinue infusion ww 09:26 Drug: Rocephin (cefTRIAXone) 1 grams Route: IV; Rate: per protocol; Site: right antecubital; 13:23 Follow up: Response: No adverse reaction; IV Status: Completed infusion 09:26 Drug: Pepcid (famotidine) 20 mg Route: IVP; Site: right antecubital; ww 13:22 Follow up: Response: No adverse reaction ww 09:51 Drug: Zithromax (azithromycin) 500 mg Route: IVPB; Infused Over: 1 hrs; Site: right antecubital; 10:55 Follow up: Response: No adverse reaction; IV Status: Completed infusion ww 10:51 Drug: Xopenex (levalbuterol) 2.5 mg Route: Inhalation; ww 13:21 Follow up: Response: No adverse reaction ww 11:20 Drug: AtroVENT (ipratropium) Aerosol 0.5 mg Route: Inhalation; ww 13:20 Follow up: Response: No adverse reaction ww 11:35 Drug: Magnesium Sulfate 1 grams Route: IVPB; Infused Over: 1 hrs; Site: right antecubital; 12:44 Drug: SOLU-Medrol (methylPrednisoLONE) 125 mg Route: IVP; Site: right antecubital; ww 13:21 Follow up: Response: No adverse reaction ww 13:30 Drug: Lasix (furosemide) 20 mg Route: IVP; Site: right antecubital; ww 13:36 Not Given (Physician Discretion): NS 0.9% with KCl 20 mEq/L 1000 ml IV at 100 ml/hr ww continuous 13:36 Drug: Xopenex (levalbuterol) 1.25 mg Route: Inhalation; ww 13:37 Drug: Potassium Chloride 20 mEq Route: IV; Rate: per protocol; Site: right antecubital; Outcome: 09:55 Decision to Hospitalize by Provider. estefany 09/20 23:15 Admitted to Tele room 401, Report called to ABBY Mancia lp1 09/21 00:21 Patient left the ED. lp1 Signatures: Dispatcher [employer] EDMS Pasha Medel MD MD cha Williams, Irene, RN ABBY Juli Pederson RN RN lp1 Jane Orellana Elizabeth eb Slawson, Ashby, RN RN as6 Alivia Elizondo RN RN Sherry Doty RN RN eo2 Corrections: (The following items were deleted from the chart) 09/20 13:45 13:44 Reassessment: Physical Therapist came to bedside to eval, states pt is weak on eo2 her left side, and leans towards her right when sitting up, pt should be maintained on bedrest per physical therapist eo2 17:48 11:30 Reassessment: Morning meds provided, gown, diaper, and linen changed, breakfast eo2 provided, pt in NAD. Will continue to monitor. eo2
[2021-09-19] MEDS ORDERED: METHYLPREDNISOLONE 125 MG INJ ONE ×2 (10:33→22:21)
[2021-09-19] MEDS ORDERED: KCL 20 MEQ/100 mL IVPB 100 ML IV ONE ×2 (10:34→22:22)
[2021-09-19] MEDS ORDERED: LEVALBUTEROL 1.25 MG/3 ML NEB ONE ×2 (10:34→13:08)
[2021-09-19] MEDS ORDERED: MAGNESIUM SULFATE 1 gm IVPB 1 GM/100 ML BAG IV ONE (10:34)
[2021-09-19] MEDS ORDERED: IPRATROPIUM BROM 0.5MG/2.5ML ONE (10:34)
--- NOTE | 2021-09-19 10:51 | P.HP ---
Certification for Inpatient Patient admitted to: Inpatient With expected LOS: >2 Midnights Practitioner: I am a practitioner with admitting privileges, knowledge of patient current condition, hospital course, and medical plan of care. Services: Services provided to patient in accordance with Admission requirements found in Title 42 Section 412.3 of the Code of Federal Regulations Patient History Date of Service: 09/19/21 Reason for admission: Shortness of breath History of Present Illness: 86-year-old man with a history of CVA with left-sided weakness, bedridden was brought to the emergency department due to progressive shortness of breath. Patient was in the ED 1 week earlier for cough and fever and tested positive for COVID-19. Since then her symptoms have gotten progressively worse. Patient noted to be hypoxic in the ED today. Chest x-ray demonstrate diffuse bilateral infiltrates. She is maintained on 3 L oxygen by nasal cannula. Patient is awake and interactive meaningfully. She is admitted for further management. Allergies No Known Allergies Allergy (Unverified 01/09/21 20:54) Home Medications: Aspirin [Aspirin EC 81 MG] 81 mg PO DAILY 30 Days #30 tablet.dr 01/13/21 Atorvastatin Calcium [Lipitor] 40 mg PO BEDTIME 30 Days #30 tab 01/13/21 Clopidogrel Bisulfate [Plavix*] 75 mg PO DAILY 30 Days #30 tablet 01/13/21 Folic Acid 1 mg PO DAILY 30 Days #30 tablet 01/13/21 Nystatin Powder [Mycostatin (Powder)*] 1 appl TOP DAILY PRN 21 Days #1 btl 01/13/21 - Past Medical/Surgical History Diabetic: No -: Eye allergy -: CVA - Family History Mother -: Hypertension, Diabetes Father -: Liver disease Notes: Cirrhosis - Social History Alcohol use: Yes CD- Drugs: No Caffeine use: Yes Review of Systems Other: Patient denied any chest pain, no abdominal pain, no diarrhea, no nausea or vomiting. Except as documented, all other systems reviewed and negative. Physical Examination - Physical Exam General: In no apparent distress, Oriented x2, Other (Awake,) HEENT: Normocephalic, Mucous membr. moist/pink, EOMI, Sclerae nonicteric Neck: Supple, JVD not distended Respiratory: Normal air movement, Crackles/rales (Bilateral) Cardiovascular: No edema, Regular rate/rhythm, Normal S1 S2 Capillary refill: <2 Seconds Gastrointestinal: Normal bowel sounds, Soft and benign, Non-distended, No tenderness Musculoskeletal: No swelling, No tenderness Integumentary: No rashes, No cyanosis Neurological: Normal speech, Other (Left-sided weakness) Lymphatics: No axilla or inguinal lymphadenopathy - Studies Laboratory Data (last 24 hrs) 09/19/21 07:39: PT 13.6 H, INR 1.18 09/19/21 07:39: WBC 10.20, Hgb 10.3 L, Hct 30.0 L, Plt Count 447 H 09/19/21 07:39: Sodium 137, Potassium 2.9 L*, BUN 9, Creatinine 0.51 L, Glucose 115 H, Magnesium 1.5 L D, Total Bilirubin 0.5, AST 24, ALT 23, Alkaline Phosphatase 112 Assessment and Plan - Problems (Diagnosis) (1) Acute respiratory failure with hypoxia Current Visit: Yes Status: Acute (2) Pneumonia due to COVID-19 virus Current Visit: Yes Status: Acute (3) History of CVA (cerebrovascular accident) Current Visit: Yes Status: Acute - Plan Admit to the medical floor. COVID-19 protocol initiated with IV steroid, vitamins and zinc supplementation. Titrate oxygen Monitor inflammatory markers. Replete electrolytes. Replace potassium IV. Patient may be a candidate for baricitinib Pulmonary consult. - Advance Directives Does patient have a Living Will: No Does patient have a Durable POA for Healthcare: No
[2021-09-19] MEDS ORDERED: NS KCL 20MEQ 1,000 ML IV SCH (11:00)
[2021-09-19] MEDS ORDERED: NA CHLORIDE 0.9% 1,000 ML with POTASSIUM CL 20 MEQ IV SCH ×2 (11:30)
[2021-09-19] MEDS ORDERED: FUROSEMIDE 20 MG/ 2ML VIAL ONE (13:07)
[2021-09-19] MEDS ORDERED: ONDANSETRON 4 MG/2 ML VIAL IV PRN (13:13)
[2021-09-19 18:02] VITALS: BMI 26.5
[2021-09-19] MEDS ORDERED: POTASSIUM CL 40 MEQ in NA CHLORIDE 0.9% 500 ML IV SCH (19:00)
[2021-09-19] MEDS: KCL 20 MEQ/100 mL IVPB 100 ML IV SCH ×3 (19:00→23:00)
[2021-09-19] MEDS: METHYLPREDNISOLONE 40 MG INJ IV SCH (21:00)
[2021-09-19] MEDS: ASCORBIC ACID 500 MG TABLET PO SCH (21:00)
[2021-09-19] MEDS: FAMOTIDINE 20 MG/2 ML VIAL IV SCH (21:00)
[2021-09-19] MEDS ORDERED: ASCORBIC ACID 500 MG TABLET ONE (22:22)
[2021-09-20] MEDS: KCL 20 MEQ/100 mL IVPB 100 ML IV SCH (01:00)
[2021-09-20 05:15] LABS: Absolute Lymphocytes (CBC) 1.2 K/uL (0.7-4.9); Lymphocytes % 22.8 % (15.3-44.8); MPV 7.3 fL (7.6-11.3); RBC Red Blood Cell Count 3.05 M/uL (3.86-4.86)
[2021-09-20 05:36] LABS: ALT/SGPT 22 U/L (12-78); AST/SGOT 20 U/L (15-37); Albumin 2.4 g/dL (3.4-5.0); Alkaline Phosphatase 105 U/L (45-117); BUN Blood Urea Nitrogen 10 mg/dL (7-18); Bicarbonate 27 mmol/L (21-32); Bilirubin Total 0.3 mg/dL (0.2-1.0); Ferritin 1510.6 ng/mL (8-388); Glucose Level 178 mg/dL (74-106); HDL Cholesterol 27 mg/dL (40-60); LDL Cholesterol, Calculated 86 (<130); Magnesium 1.8 mg/dL (1.8-2.4); Potassium 3.8 mmol/L (3.5-5.1); Protein, Total 6.5 g/dL (6.4-8.2); Sodium Level 136 mmol/L (136-145)
[2021-09-20 09:01] LABS: Blood Morphology Comment NOT SEEN (NOT SEEN); Platelet Estimate ADEQ; Toxic Granulation PRESENT
[2021-09-20] MEDS ORDERED: ASCORBIC ACID 500 MG TABLET ONE ×2 (10:46→21:41)
[2021-09-20] MEDS ORDERED: ZINC SULFATE 220 MG CAP ONE (10:47)
[2021-09-20] MEDS ORDERED: CLOPIDOGREL 75 MG TABLET ONE (10:47)
[2021-09-20] MEDS ORDERED: ASPIRIN EC 81 MG TAB PO ONE (10:47)
[2021-09-20] MEDS ORDERED: METHYLPREDNISOLONE 40 MG INJ ONE ×2 (10:48→21:41)
[2021-09-20] MEDS ORDERED: ENOXAPARIN 40 MG/0.4 ML SQ ONE (10:48)
[2021-09-20] MEDS ORDERED: FAMOTIDINE 20 MG/2 ML VIAL IV ONE (10:49)
[2021-09-20] MEDS: ZINC SULFATE 220 MG CAP PO SCH (11:25)
[2021-09-20] MEDS: ASPIRIN EC 81 MG TAB PO SCH (11:25)
[2021-09-20] MEDS: CLOPIDOGREL 75 MG TABLET PO SCH (11:25)
[2021-09-20] MEDS: ASCORBIC ACID 500 MG TABLET PO SCH ×2 (11:25→22:00)
[2021-09-20] MEDS: VITAMIN D 5,000 UNIT CAP PO SCH (11:25)
[2021-09-20] MEDS: METHYLPREDNISOLONE 40 MG INJ IV SCH ×2 (11:28→22:00)
[2021-09-20] MEDS: ENOXAPARIN 40 MG/0.4 ML SQ SCH (11:30)
[2021-09-20] MEDS: FAMOTIDINE 20 MG/2 ML VIAL IV SCH ×2 (11:30→22:00)
--- NOTE | 2021-09-20 13:06 | P.PN ---
Subjective Date of Service: 09/20/21 Chief Complaint: Shortness of breath Patient doing much better today. Her oxygen saturation is borderline on room air. She is awake and more interactive. She denies any complaint. Physical Examination - Vital Signs Temperature: 99.1 F Blood Pressure: 131/75 Pulse: 82 Respirations: 20 Pulse Ox (%): 95 - Physical Exam General: In no apparent distress, Other (Awake) HEENT: Mucous membr. moist/pink Neck: JVD not distended Respiratory: Crackles/rales (Mild bibasilar Rales.) Cardiovascular: No edema, Regular rate/rhythm, Normal S1 S2 Gastrointestinal: Soft and benign, Non-distended, No tenderness Musculoskeletal: No swelling Integumentary: No rashes Neurological: Other (Left-sided weakness.) - Studies Microbiology Data (last 24 hrs): 09/19/21 09:23 Blood - Blood Blood Culture Gram Stain - Final 09/19/21 09:23 Blood - Blood Gram Stain - Final Assessment And Plan - Current Problems (Diagnosis) (1) Acute respiratory failure with hypoxia Current Visit: Yes Status: Acute (2) Pneumonia due to COVID-19 virus Current Visit: Yes Status: Acute (3) History of CVA (cerebrovascular accident) Current Visit: Yes Status: Acute - Plan Continue IV steroid, vitamins and zinc supplementation. Patient weaned off oxygen. Monitor for hypoxia. Monitor inflammatory markers. Potassium repleted. She is currently normokalemic. Pulmonary consult is pending. Continue aspirin and Plavix for history of CVA. Patient at baseline is bedridden.
[2021-09-20] MEDS ORDERED: FAMOTIDINE 20 MG TAB ONE (21:41)
[2021-09-21 04:27] LABS: Absolute Lymphocytes (CBC) 1.1 K/uL (0.7-4.9); Hematocrit 28.7 % (36.0-45.0); Lymphocytes % 8.8 % (15.3-44.8); MPV 7.3 fL (7.6-11.3); RBC Red Blood Cell Count 3.16 M/uL (3.86-4.86)
[2021-09-21 04:34] LABS: ALT/SGPT 25 U/L (12-78); AST/SGOT 22 U/L (15-37); Albumin 2.7 g/dL (3.4-5.0); Alkaline Phosphatase 95 U/L (45-117); BUN Blood Urea Nitrogen 12 mg/dL (7-18); Bicarbonate 27 mmol/L (21-32); Bilirubin Total 0.5 mg/dL (0.2-1.0); Ferritin 1481.7 ng/mL (8-388); Glucose Level 138 mg/dL (74-106); Potassium 3.1 mmol/L (3.5-5.1); Protein, Total 6.7 g/dL (6.4-8.2); Sodium Level 136 mmol/L (136-145)
[2021-09-21] MEDS ORDERED: NA CHLORIDE 0.9% 250 ML ONE (04:57)
[2021-09-21] MEDS: KCL 20 MEQ/100 mL IVPB 20 MEQ/100 ML BAG IV SCH ×3 (05:01→09:05)
[2021-09-21] MEDS: VITAMIN D 5,000 UNIT CAP PO SCH (09:00)
[2021-09-21] MEDS: METHYLPREDNISOLONE 40 MG INJ IV SCH ×2 (09:05→20:53)
[2021-09-21] MEDS: ASCORBIC ACID 500 MG TABLET PO SCH ×2 (09:05→20:53)
[2021-09-21] MEDS: ZINC SULFATE 220 MG CAP PO SCH (09:05)
[2021-09-21] MEDS: FAMOTIDINE 20 MG/2 ML VIAL IV SCH (09:05)
[2021-09-21] MEDS: ASPIRIN EC 81 MG TAB PO SCH (09:05)
[2021-09-21] MEDS: CLOPIDOGREL 75 MG TABLET PO SCH (09:05)
[2021-09-21] MEDS: ENOXAPARIN 40 MG/0.4 ML SQ SCH (09:06)
--- NOTE | 2021-09-21 11:54 | P.CNS ---
Date of Consult: 09/21/21 Reason for Consult: Coronavirus pneumonia Chief Complaint: Shortness of breath History of Present Illness: Patient is 86 years of age with a history of stroke mated with coronavirus pneumonia continues to remain a little hypoxic poor historian confused disorie nted Allergies ciprofloxacin [From Cipro] Adverse Reaction (Verified 09/19/21 18:29) Rash Home Medications: Aspirin [Aspirin EC 81 MG] 81 mg PO DAILY 30 Days #30 tablet. 01/13/21 Atorvastatin Calcium [Lipitor] 40 mg PO BEDTIME 30 Days #30 tab 01/13/21 Clopidogrel Bisulfate [Plavix*] 75 mg PO DAILY 30 Days #30 tablet 01/13/21 Folic Acid 1 mg PO DAILY 30 Days #30 tablet 01/13/21 Nystatin Powder [Mycostatin (Powder)*] 1 appl TOP DAILY PRN 21 Days #1 btl 01/13/21 - Past Medical/Surgical History Diabetic: No -: Eye allergy -: CVA - Family History Mother Medical History: Hypertension, Diabetes Father Medical History: Liver disease Notes: Cirrhosis - Social History Alcohol use: Yes CD- Drugs: No Caffeine use: Yes Review of Systems is unable to be obtained Physical Examination Temp Pulse Resp BP Pulse Ox 98.1 F 70 18 167/93 H 92 09/21/21 07:53 09/21/21 07:53 09/21/21 07:53 09/21/21 07:53 09/21/21 07:53 General: Alert, Oriented x1 Respiratory: Clear to auscultation bilaterally, Diminished, Friction rub Cardiovascular: Regular rate/rhythm, Normal S1 S2 - Problems (1) Pneumonia due to COVID-19 virus Current Visit: Yes Status: Acute Plan: Age 86 admitted with coronavirus pneumonia chest x-ray consistent with coronavirus pneumonia patient is 91% on room air continue with present therapy possible discharge in 1 to 2 days home oxygen has been ordered blood pressure elevated
--- NOTE | 2021-09-21 12:40 | P.PN ---
Subjective Date of Service: 09/21/21 Chief Complaint: Shortness of breath Patient has no new complaint. Her oxygen saturation is borderline on room air. She is awake and interactive. Physical Examination - Vital Signs Temperature: 98.4 F Blood Pressure: 176/80 Pulse: 102 Respirations: 18 Pulse Ox (%): 90 - Physical Exam General: Confused, Other (Awake) HEENT: Mucous membr. moist/pink Neck: JVD not distended Respiratory: Normal air movement, Crackles/rales (Mild bibasilar crackles) Cardiovascular: Normal S1 S2, Other (Tachycardia) Gastrointestinal: Soft and benign, Non-distended, No tenderness Musculoskeletal: No swelling Integumentary: No rashes Neurological: Other (Moves all extremities.) - Studies Microbiology Data (last 24 hrs): 09/19/21 09:23 Blood - Blood Blood Culture Gram Stain - Final 09/19/21 09:23 Blood - Blood Gram Stain - Final Assessment And Plan - Current Problems (Diagnosis) (1) Acute respiratory failure with hypoxia Current Visit: Yes Status: Acute (2) Pneumonia due to COVID-19 virus Current Visit: Yes Status: Acute (3) History of CVA (cerebrovascular accident) Current Visit: Yes Status: Acute - Plan Continue IV steroid, vitamins and zinc supplementation. Patient weaned off oxygen. Monitor for hypoxia. Home oxygen evaluation. Monitor inflammatory markers. Monitor and correct electrolytes as needed. Correct potassium. Pulmonary consult appreciated. Continue aspirin and Plavix for history of CVA. Patient at baseline is bedridden.
[2021-09-21] MEDS: FAMOTIDINE 20 MG TAB PO SCH (20:53)
[2021-09-22] MEDS: AMLODIPINE 10 MG TAB PO ONE ×3 (01:06→04:40)
[2021-09-22] MEDS: HYDRALAZINE HCL 20 MG/ML VIAL IV PRN ×2 (03:59→08:52)
[2021-09-22 04:02] LABS: Absolute Lymphocytes (CBC) 0.6 K/uL (0.7-4.9); Hematocrit 29.4 % (36.0-45.0); MPV 7.1 fL (7.6-11.3); RBC Red Blood Cell Count 3.26 M/uL (3.86-4.86)
[2021-09-22 04:25] LABS: ALT/SGPT 29 U/L (12-78); AST/SGOT 23 U/L (15-37); Albumin 2.7 g/dL (3.4-5.0); Alkaline Phosphatase 93 U/L (45-117); BUN Blood Urea Nitrogen 13 mg/dL (7-18); Bicarbonate 27 mmol/L (21-32); Bilirubin Total 0.5 mg/dL (0.2-1.0); Ferritin 1427.9 ng/mL (8-388); Glucose Level 128 mg/dL (74-106); Potassium 3.5 mmol/L (3.5-5.1); Protein, Total 6.7 g/dL (6.4-8.2); Sodium Level 139 mmol/L (136-145)
[2021-09-22] MEDS ORDERED: POTASSIUM 25 MEQ EFFERV TAB PO ONE (05:09)
--- NOTE | 2021-09-22 06:06 | P.PN ---
Date of Service: 09/22/21 Subjective: no acute events overnight breathing comfortably on room air: SpO2: low 90s no new complaints, but does have confusion / dementia afebrile ROS: 10 point ROS as noted above, otherwise negative Physical exam GEN: Alert, oriented to self, NAD HEENT: Normal conjunctiva, sclera anicteric CV: Regular rate and rhythm, no edema Pulm: Nonlabored respirations on room air ABD: Soft, nontender, nondistended Neuro: lower extremity weakness, follows basic commands Problem List Acute hypoxemic respiratory failure secondary to COVID-19 pneumonia History of CVA Dementia Bedbound Continue steroids, vitamins and zinc supplementation. Patient weaned off oxygen. borderline SpO2 Home oxygen evaluation. Inflammatory markers improving Pulmonology consulted Continue aspirin and Plavix for history of CVA. Patient at baseline is bedridden. discussed with daughter, Aye, patient is getting near her baseline, slowly improving Dispo: anticipate dc home tomorrow to resume home health
[2021-09-22] MEDS: AMLODIPINE 10 MG TAB PO SCH (08:52)
[2021-09-22] MEDS: CLOPIDOGREL 75 MG TABLET PO SCH (08:52)
[2021-09-22] MEDS: ASCORBIC ACID 500 MG TABLET PO SCH ×2 (08:52→20:17)
[2021-09-22] MEDS: ENOXAPARIN 40 MG/0.4 ML SQ SCH (08:52)
[2021-09-22] MEDS: FAMOTIDINE 20 MG TAB PO SCH ×2 (08:52→20:17)
[2021-09-22] MEDS: VITAMIN D 5,000 UNIT CAP PO SCH (08:52)
[2021-09-22] MEDS: ZINC SULFATE 220 MG CAP PO SCH (08:53)
[2021-09-22] MEDS: METHYLPREDNISOLONE 40 MG INJ IV SCH ×2 (08:53→20:17)
[2021-09-22] MEDS: ASPIRIN EC 81 MG TAB PO SCH (08:53)
[2021-09-23 04:24] LABS: BUN Blood Urea Nitrogen 14 mg/dL (7-18); Bicarbonate 26 mmol/L (21-32); Glucose Level 164 mg/dL (74-106); Potassium 3.2 mmol/L (3.5-5.1); Sodium Level 138 mmol/L (136-145)
--- NOTE | 2021-09-23 06:17 | P.PN ---
Date of Service: 09/23/21 Subjective: Feels slightly worse this morning, does appear slightly more alert Inflammatory markers increasing ROS: 10 point ROS as noted above, otherwise negative Physical exam GEN: Alert, oriented to self, NAD, +dementia HEENT: Normal conjunctiva, sclera anicteric CV: Regular rate and rhythm, no edema Pulm: Nonlabored respirations on room air, slight crackles at bases bilaterally, +dry cough6 ABD: Soft, nontender, nondistended Neuro: lower extremity weakness, follows basic commands Problem List Acute hypoxemic respiratory failure secondary to COVID-19 pneumonia History of CVA Dementia Bedbound Continue steroids, vitamins and zinc supplementation. Patient weaned off oxygen. borderline SpO2 Home oxygen evaluation. Currently on room air Inflammatory markers slightly increased, patient reports feeling worse We will check chest x-ray, monitor through today Pulmonology consulted Continue aspirin and Plavix for history of CVA. Patient at baseline is bedridden. discussed with daughter, Aye, patient is getting near her baseline mentation Dispo: anticipate dc home tomorrow to resume home health
--- NOTE | 2021-09-23 07:51 | RAD REPORT ---
EXAM DESCRIPTION: RAD - Chest Single View - 09/23/2021 6:50 am CLINICAL HISTORY: f/u covid COMPARISON: Chest Single View dated 09/19/2021; Chest Single View dated 09/13/2021; Chest Single View dated 07/09/2021; Chest Single View dated 01/14/2021 FINDINGS: Lines: None. Lungs: Mild improved aeration of the lungs with some clearing of the bilateral airspace opacities Pleural: No significant pleural effusions or pneumothorax. Cardiac: The heart size is within normal limits. Bones: No acute fractures. Other: IMPRESSION: Improved though not resolved bilateral airspace disease consistent with multifocal pneum onia.
[2021-09-23] MEDS: ASCORBIC ACID 500 MG TABLET PO SCH ×2 (09:05→19:30)
[2021-09-23] MEDS: VITAMIN D 5,000 UNIT CAP PO SCH (09:05)
[2021-09-23] MEDS: CLOPIDOGREL 75 MG TABLET PO SCH (09:05)
[2021-09-23] MEDS: METHYLPREDNISOLONE 40 MG INJ IV SCH ×2 (09:05→19:30)
[2021-09-23] MEDS: AMLODIPINE 10 MG TAB PO SCH (09:05)
[2021-09-23] MEDS: ZINC SULFATE 220 MG CAP PO SCH (09:05)
[2021-09-23] MEDS: ASPIRIN EC 81 MG TAB PO SCH (09:05)
[2021-09-23] MEDS: FAMOTIDINE 20 MG TAB PO SCH ×2 (09:05→19:30)
[2021-09-23] MEDS: ENOXAPARIN 40 MG/0.4 ML SQ SCH (09:05)
[2021-09-24] MEDS: HYDRALAZINE HCL 20 MG/ML VIAL IV PRN (05:04)
[2021-09-24 06:10] LABS: BUN Blood Urea Nitrogen 15 mg/dL (7-18); Bicarbonate 25 mmol/L (21-32); Glucose Level 130 mg/dL (74-106); Sodium Level 139 mmol/L (136-145)
--- NOTE | 2021-09-24 06:13 | P.PN ---
Date of Service: 09/24/21 Subjective: Patient groaning in pain this morning, seems to be more confused States she is not feeling well, but when asked where she is having pain, she only groans and does not verbalize where Patient does currently have potassium IV running, but does not answer when asked if it is the IV/her right arm that is hurting her ROS: 10 point ROS unable to fully be obtained Physical exam GEN: Alert, oriented to self only, appears uncomfortable, groaning, +confusion HEENT: Normal conjunctiva, sclera anicteric CV: Regular rate and rhythm, no edema Pulm: Nonlabored respirations on room air, slight crackles at bases bilaterally, +dry cough ABD: Soft, nontender, nondistended Msk: no tenderness with palpation along b/l upper and lower extremities Neuro: lower extremity weakness, follows basic commands Problem List Acute hypoxemic respiratory failure secondary to COVID-19 pneumonia History of CVA Dementia Bedbound Continue steroids, vitamins and zinc supplementation. Patient weaned off oxygen. borderline SpO2 at rest Inflammatory markers slightly increased Difficult to fully assess patient, intermittently answers CXR yesterday with improvement of pulm opacities pain may be from IV potassium, will stop and re-eval Pulmonology consulted Continue aspirin and Plavix for history of CVA. Patient at baseline is bedridden. discussed with daughter, Aye, patient was getting near her baseline mentation - dementia with good/bad days, does not know year at baseline, sometimes will know where she is at Temperature is up to high 99s UA never obtained, will get straight cath urine sample empirically start rocephin Dispo: anticipate dc home in ~24-48hrs to resume home health
[2021-09-24] MEDS ORDERED: NA CHLORIDE 0.9% 250 ML ONE (06:16)
[2021-09-24] MEDS: KCL 20 MEQ/100 mL IVPB 20 MEQ/100 ML BAG IV SCH ×3 (06:20→09:27)
[2021-09-24 08:23] LABS: Ferritin > 2000.0 ng/mL (8-388)
[2021-09-24] MEDS: ASCORBIC ACID 500 MG TABLET PO SCH ×3 (09:27→21:00)
[2021-09-24] MEDS: AMLODIPINE 10 MG TAB PO SCH (09:28)
[2021-09-24] MEDS: FAMOTIDINE 20 MG TAB PO SCH ×3 (09:28→21:00)
[2021-09-24] MEDS: VITAMIN D 5,000 UNIT CAP PO SCH (09:29)
[2021-09-24] MEDS: ASPIRIN EC 81 MG TAB PO SCH (09:29)
[2021-09-24] MEDS: CLOPIDOGREL 75 MG TABLET PO SCH (09:29)
[2021-09-24] MEDS: ZINC SULFATE 220 MG CAP PO SCH (09:29)
[2021-09-24] MEDS: ENOXAPARIN 40 MG/0.4 ML SQ SCH (09:29)
[2021-09-24] MEDS: METHYLPREDNISOLONE 40 MG INJ IV SCH ×2 (09:29→20:24)
[2021-09-24] MEDS ORDERED: POTASSIUM 25 MEQ EFFERV TAB PO ONE ×2 (10:06→18:00)
[2021-09-24] MEDS: ACETAMINOPHEN 500 MG TAB PO PRN (10:44)
[2021-09-24 14:35] LABS: Urine Appearance CLEAR (Clear); Urine Bilirubin NEGATIVE (Negative); Urine Blood NEGATIVE (Negative); Urine Color YELLOW (Yellow); Urine Glucose NEGATIVE (Negative); Urine Protein 2+ (Negative); Urine Specific Gravity 1.015 (1.005-1.030); Urine Urobilinogen 0.2 mg/dL (0.2-1.0)
[2021-09-24 14:38] LABS: Urine Microscopic Reflex ORDER UMIC
[2021-09-24 14:43] LABS: Urine Bacteria 20-50 /HPF (<20); Urine RBC <5 /HPF (NONE SEEN)
[2021-09-24] MEDS: CEFTRIAXONE 1,000 MG in NA CHLORIDE 0.9% 50 ML IVPB SCH (15:20)
[2021-09-25 02:32] LABS: Absolute Lymphocytes (CBC) 0.5 K/uL (0.7-4.9); Hematocrit 31.1 % (36.0-45.0); Lymphocytes % 2.8 % (15.3-44.8); MPV 7.3 fL (7.6-11.3); RBC Red Blood Cell Count 3.44 M/uL (3.86-4.86)
[2021-09-25 02:57] LABS: BUN Blood Urea Nitrogen 17 mg/dL (7-18); Bicarbonate 28 mmol/L (21-32); Glucose Level 175 mg/dL (74-106); Potassium 3.6 mmol/L (3.5-5.1); Sodium Level 140 mmol/L (136-145)
[2021-09-25 03:01] LABS: Ferritin 3306.5 ng/mL (8-388)
[2021-09-25 03:09] LABS: Anisocytosis 1+; Blood Morphology Comment NOTED (NOT SEEN); Ovalocytes 1+; Platelet Estimate INCR; Toxic Granulation 1+
[2021-09-25] MEDS: HYDRALAZINE HCL 20 MG/ML VIAL IV PRN ×2 (05:02→13:10)
--- NOTE | 2021-09-25 06:00 | P.PN ---
Date of Service: 09/25/21 Subjective: confused, moaning, denies pain answers some questions not completely appropriate responses ROS: 10 point ROS unable to fully be obtained Physical exam GEN: Alert, oriented to self only, appears comfortable but intermittently winces/moans HEENT: Normal conjunctiva, sclera anicteric CV: Regular rate and rhythm, no edema Pulm: Nonlabored respirations on room air, +cough, mild bibasilar crackles ABD: Soft, nontender, nondistended Msk: no tenderness with palpation along b/l upper and lower extremities Neuro: lower extremity weakness, does not follow commands well Problem List Acute hypoxemic respiratory failure secondary to COVID-19 pneumonia History of CVA nonambulatory Dementia Bedbound Decrease steroids may be contributing to the her delirium/confusion Patient weaned off oxygen. borderline SpO2 at rest down to 90% at times Inflammatory markers slightly increased Difficult to fully assess patient, intermittently answers questions Pulmonology consulted Continue aspirin and Plavix for history of CVA. Patient at baseline is bedridden. discussed with daughter, Aye, patient was getting near her baseline mentation - dementia with good/bad days, does not know year at baseline, sometimes will know where she is at however over the last 2 days she has seemed to be more confused, responding slower 1/6 with tmax to 99.9, UA obtained with few bacteria, empirically started rocephin Ur culture pending inflammatory markers increased if no improvement, will check CT head Dispo: anticipate dc home in ~48hrs to resume home health
[2021-09-25] MEDS ORDERED: POTASSIUM 25 MEQ EFFERV TAB PO ONE (09:00)
[2021-09-25] MEDS: ASPIRIN EC 81 MG TAB PO SCH (09:59)
[2021-09-25] MEDS: CLOPIDOGREL 75 MG TABLET PO SCH (10:00)
[2021-09-25] MEDS: ENOXAPARIN 40 MG/0.4 ML SQ SCH (10:00)
[2021-09-25] MEDS: CEFTRIAXONE 1,000 MG in NA CHLORIDE 0.9% 50 ML IVPB SCH (10:00)
[2021-09-25] MEDS: FAMOTIDINE 20 MG TAB PO SCH ×2 (10:00→20:40)
[2021-09-25] MEDS: AMLODIPINE 10 MG TAB PO SCH (10:00)
[2021-09-25] MEDS: ASCORBIC ACID 500 MG TABLET PO SCH ×2 (10:01→20:40)
[2021-09-25] MEDS: VITAMIN D 5,000 UNIT CAP PO SCH (10:01)
[2021-09-25] MEDS: METHYLPREDNISOLONE 40 MG INJ IV SCH (10:01)
[2021-09-25] MEDS: ZINC SULFATE 220 MG CAP PO SCH (10:01)
[2021-09-25] MEDS ORDERED: lisinopriL 10 MG TAB PO ONE (13:33)
[2021-09-25] MEDS: SERTRALINE HCL 50 MG TAB PO SCH (14:10)
--- NOTE | 2021-09-25 16:59 | RAD REPORT ---
EXAM DESCRIPTION: RAD - Chest Single View - 09/25/2021 4:24 pm CLINICAL HISTORY: hypoxia, COVID COMPARISON: Chest Single View dated 09/23/2021; Chest Single View dated 09/19/2021; Chest Single View da tania 09/13/2021; Chest Single View dated 07/09/2021 FINDINGS: Lines: None. Lungs: No evidence of edema or pneumonia. Pleural: No significant pleural effusions or pneumothorax. Cardiac: The heart size is within normal limits. Bones: No acute fractures. Other: IMPRESSION: No acute cardiopulmonary disease.
[2021-09-25] MEDS: ACETAMINOPHEN 500 MG TAB PO PRN (17:00)
[2021-09-25] MEDS: predniSONE 20 MG TAB PO SCH (20:40)
[2021-09-25] MEDS: ENSURE ENLIVE 237 ML CAN PO SCH (20:41)
[2021-09-26] MEDS: HYDRALAZINE HCL 20 MG/ML VIAL IV PRN ×2 (04:16→23:42)
[2021-09-26 04:17] LABS: Absolute Lymphocytes (CBC) 0.8 K/uL (0.7-4.9); Hematocrit 31.1 % (36.0-45.0); Lymphocytes % 5.2 % (15.3-44.8); MPV 7.7 fL (7.6-11.3); RBC Red Blood Cell Count 3.39 M/uL (3.86-4.86)
[2021-09-26 04:46] LABS: BUN Blood Urea Nitrogen 17 mg/dL (7-18); Bicarbonate 28 mmol/L (21-32); Ferritin 4114.7 ng/mL (8-388); Glucose Level 142 mg/dL (74-106); Magnesium 2.3 mg/dL (1.8-2.4); Sodium Level 143 mmol/L (136-145)
--- NOTE | 2021-09-26 06:01 | P.PN ---
Date of Service: 09/26/21 Subjective: Slightly more alert this morning, answering questions slightly more appropriate Denies any pain Thinks she is feeling a little bit better, but does not seem to recall many events from yesterday either No nausea/vomiting, no abdominal pain, continues with cough Denies short of breath, denies that she is breathing harder than usual ROS: 10 point ROS unable to fully be obtained Physical exam GEN: Alert, oriented to self only, appears fatigued HEENT: Normal conjunctiva, sclera anicteric CV: Regular rate and rhythm, no edema Pulm: Slight tachypnea, on room air. +cough, mild bibasilar crackles ABD: Soft, nontender, nondistended Msk: no tenderness with palpation along extremities Neuro: Generalized weakness, follows basic commands Problem List Acute hypoxemic respiratory failure secondary to COVID-19 pneumonia History of CVA nonambulatory Dementia Depression Bedbound Decreased steroids on 09/25 may be contributing to the her delirium/confusion Patient weaned off oxygen. borderline SpO2 at rest down to 90% at times Difficult to fully assess patient due to dementia and confusion. Possibility of some delirium component. With some improvement today compared to yesterday Pulmonology consulted Continue aspirin and Plavix for history of CVA. Patient at baseline is bedridden. discussed with daughter, Aye, patient was getting near her baseline mentation - dementia with good/bad days, does not know year at baseline, sometimes will know where she is at however over the last 2 days she has seemed to be more confused, responding slower The last 2 days patient has been more confused and responding slower, however today, she seems to be slightly improved / with tmax to 99.9, UA obtained with few bacteria, empirically started rocephin Ur culture no growth Ferritin continues to increase, COPD stable/mild increases CT had monitored due to no significant improvement, negative Dispo: anticipate dc home in ~24-48hrs to resume home health
[2021-09-26] MEDS: CEFTRIAXONE 1,000 MG in NA CHLORIDE 0.9% 50 ML IVPB SCH (08:57)
[2021-09-26] MEDS: FAMOTIDINE 20 MG TAB PO SCH ×2 (08:58→21:00)
[2021-09-26] MEDS: ZINC SULFATE 220 MG CAP PO SCH (08:58)
[2021-09-26] MEDS: ENOXAPARIN 40 MG/0.4 ML SQ SCH (08:58)
[2021-09-26] MEDS: predniSONE 20 MG TAB PO SCH ×2 (08:58→21:00)
[2021-09-26] MEDS: SERTRALINE HCL 50 MG TAB PO SCH (08:58)
[2021-09-26] MEDS: ASPIRIN EC 81 MG TAB PO SCH (08:58)
[2021-09-26] MEDS: AMLODIPINE 10 MG TAB PO SCH (08:58)
[2021-09-26] MEDS: CLOPIDOGREL 75 MG TABLET PO SCH (08:58)
[2021-09-26] MEDS: ASCORBIC ACID 500 MG TABLET PO SCH ×2 (08:58→21:00)
[2021-09-26] MEDS: VITAMIN D 5,000 UNIT CAP PO SCH (08:58)
[2021-09-26] MEDS: ENSURE ENLIVE 237 ML CAN PO SCH ×2 (08:59→21:00)
[2021-09-26] MEDS: lisinopriL 10 MG TAB PO SCH (08:59)
[2021-09-26] MEDS ORDERED: POTASSIUM 25 MEQ EFFERV TAB PO ONE ×3 (09:00→21:00)
--- NOTE | 2021-09-26 11:46 | RAD REPORT ---
EXAM DESCRIPTION: CT - Head Brain Wo Cont - 09/26/2021 8:44 am CLINICAL HISTORY: r/o CVA, altered, h/o CVA Headache, drowsiness, CVA symptomology COMPARISON: Head angio dated 01/09/2021; Ct Stroke Brain Wo Cont dated 01/09/2021; MRA Head Wo Cont da tania 01/12/2021; MRA Neck W/Wo Cont dated 01/12/2021; Brain W/Wo Cont dated 01/12/2021 TECHNIQUE: All CT scans are performed using dose optimization technique as appropriate and may inclu de automated exposure control or mA/KV adjustment according to patient size. FINDINGS: No intracranial hemorrhage, hydrocephalus or extra-axial fluid collection.Moderate general ized brain atrophy is present with moderate periventricular and deep white matter chronic microvascul ar ischemic changes.No areas of brain edema or evidence of midline shift. The paranasal sinuses and mastoids are clear. The calvarium is intact. Mild right vertebral atheroscl erosis. IMPRESSION: No acute intracranial abnormality.
--- NOTE | 2021-09-26 13:48 | EKG ---
Test Date: 2021-09-26 Test Time: 05:02:25 Machine Cell Tuber: RT MEASUREMENT RESULTS: Intervals: Rate: 106 NM: 136 QRSD: 78 QT: 264 QTc: 350 Moodus: P: NM: 136 QRS: 18 T: 267 INTERPRETIVE STATEMENTS: Sinus tachycardia ST & T wave abnormality, consider inferior ischemia ST & T wave abnormality, consider anterolateral ischemia Abnormal ECG Compared to ECG 09/19/2021 10:11:21 ST (T wave) deviation now present Possible ischemia now present Sinus rhythm no longer present Electronically Signed On 09-26-21 13:47:30 TRIPOLER by Scot Parker
[2021-09-26] MEDS: NA CHLORIDE 0.9% 1,000 ML IV SCH (18:13)
[2021-09-26] MEDS ORDERED: KCL 20 MEQ/100 mL IVPB 20 MEQ/100 ML BAG IV ONE (23:00)
--- NOTE | 2021-09-27 06:01 | P.PN ---
Date of Service: 09/27/21 Subjective: Patient noted to have coughing episodes after trying to eat/swallow last night Made n.p.o., started on gentle maintenance IV fluids This morning patient appears slightly more fatigued Reports feeling okay, however she is confused, does not seem to recall any events yesterday or the day before Oriented to self Continues with cough Denies pain ROS: 10 point ROS unable to fully be obtained Physical exam GEN: Alert, oriented to self only, appears fatigued HEENT: Normal conjunctiva, sclera anicteric CV: Regular rate and rhythm, no edema Pulm: Nonlabored respirations, on room air. +cough, mild bibasilar crackles ABD: Soft, nontender, nondistended Msk: no tenderness with palpation along extremities Neuro: Generalized weakness, follows basic commands, hard of hearing Problem List Acute hypoxemic respiratory failure secondary to COVID-19 pneumonia History of CVA nonambulatory Dementia Depression Bedbound Decreased steroids on 09/25 may be contributing to the her delirium/confusion, transition to IV due to n.p.o. Patient weaned off oxygen. borderline SpO2 at rest down to 90% at times Difficult to fully assess patient due to dementia and confusion. Possibility of some delirium component. 09/24 tmax: 99.9, UA with slight bacteriuria, empirically started on Rocephin, discontinued 09/27 after negative cultures Pulmonology consulted Continue aspirin and Plavix for history of CVA. Patient at baseline is bedridden. CT head done due to continued altered mental status, negative Concern for aspiration, patient with worsening cough while trying to swallow, nursing noted some difficulty swallowing the evening of 10/06 Patient made n.p.o., IV fluids, speech therapy We will place Dobbhoff today, to continue p.o. medication, otherwise transition p.o. meds to IV if able Dispo: anticipate dc home in ~48hrs to resume home health
[2021-09-27] MEDS: ENSURE ENLIVE 237 ML CAN PO SCH ×2 (09:00→19:47)
[2021-09-27] MEDS: SERTRALINE HCL 50 MG TAB PO SCH (09:00)
[2021-09-27] MEDS: ASCORBIC ACID 500 MG TABLET PO SCH (09:00)
[2021-09-27] MEDS: FAMOTIDINE 20 MG TAB PO SCH ×2 (09:00→19:48)
[2021-09-27] MEDS: lisinopriL 10 MG TAB PO SCH (09:00)
[2021-09-27] MEDS: ZINC SULFATE 220 MG CAP PO SCH (09:00)
[2021-09-27] MEDS: AMLODIPINE 10 MG TAB PO SCH (09:00)
[2021-09-27] MEDS: ASPIRIN EC 81 MG TAB PO SCH (09:00)
[2021-09-27] MEDS: predniSONE 20 MG TAB PO SCH (09:00)
[2021-09-27] MEDS: CLOPIDOGREL 75 MG TABLET PO SCH (09:00)
[2021-09-27] MEDS: VITAMIN D 5,000 UNIT CAP PO SCH (09:00)
--- NOTE | 2021-09-27 12:03 | RAD REPORT ---
EXAM DESCRIPTION: Kylee Single View09/27/2021 10:31 am CLINICAL HISTORY: Chest pain COMPARISON: September 25, 2021 FINDINGS: Mild bibasilar lung opacities. Heart is normal size IMPRESSION: Mild bibasilar opacities may represent aspiration pneumonitis or pneumonia
[2021-09-27] MEDS: NA CHLORIDE 0.9% 1,000 ML IV SCH (13:09)
[2021-09-27] MEDS: HYDRALAZINE HCL 20 MG/ML VIAL IV PRN ×2 (13:10→17:29)
[2021-09-27] MEDS: ENOXAPARIN 40 MG/0.4 ML SQ SCH (13:13)
--- NOTE | 2021-09-27 13:20 | RAD REPORT ---
EXAM DESCRIPTION: RAD - Chest Single View - 09/27/2021 1:09 pm CLINICAL HISTORY: Device placement Dobhoff tube placement IMPRESSION: A Dobhoff tube is coiled within the distal esophagus. The tip is pointing cranially
--- NOTE | 2021-09-27 16:17 | RAD REPORT ---
EXAM DESCRIPTION: RAD - Chest Single View - 09/27/2021 3:57 pm CLINICAL HISTORY: Device placement Dobhoff tube placement IMPRESSION: ADobhoff tube lies is coiled within the distal esophagus. The tip is pointing cranially
[2021-09-27] MEDS: PIPER TAZO 3.375 GM in NA CHLORIDE 0.9% 100 ML IV SCH (16:19)
[2021-09-27] MEDS ORDERED: PIPER TAZO 3.375 GM in NA CHLORIDE 0.9% 100 ML IV SCH (17:00)
[2021-09-27] MEDS: METHYLPREDNISOLONE 40 MG INJ IV SCH (20:47)
[2021-09-28] MEDS: PIPER TAZO 3.375 GM in NA CHLORIDE 0.9% 100 ML IV SCH ×3 (01:58→17:00)
[2021-09-28 05:15] LABS: Absolute Lymphocytes (CBC) 0.8 K/uL (0.7-4.9); Hematocrit 32.7 % (36.0-45.0); MPV 8.2 fL (7.6-11.3); RBC Red Blood Cell Count 3.55 M/uL (3.86-4.86)
[2021-09-28 05:54] LABS: BUN Blood Urea Nitrogen 15 mg/dL (7-18); Bicarbonate 25 mmol/L (21-32); Glucose Level 163 mg/dL (74-106); Potassium 3.2 mmol/L (3.5-5.1); Sodium Level 147 mmol/L (136-145)
[2021-09-28 06:11] LABS: Ferritin 2930.4 ng/mL (8-388)
--- NOTE | 2021-09-28 06:16 | P.PN ---
Date of Service: 09/28/21 Subjective: Patient more awake/alert today, likely the most she has been made a week Seems to recognize that I was her physician Reports not feeling well, not wanting to go home, states she wants to stay here Discussed that it is not a possibility Yesterday with concerns for aspiration, made n.p.o. Speech therapy consulted ROS: 10 point ROS unable to fully be obtained Physical exam GEN: Alert, oriented to self only, appears fatigued HEENT: Normal conjunctiva, sclera anicteric CV: Regular rate and rhythm, no edema Pulm: Nonlabored respirations, on room air. +cough, mild bibasilar crackles ABD: Soft, nontender, nondistended Msk: no tenderness with palpation along extremities Neuro: Generalized weakness, follows basic commands, hard of hearing Problem List Acute hypoxemic respiratory failure secondary to COVID-19 pneumonia Aspiration pneumonia History of CVA nonambulatory Dementia Depression Bedbound Decreased steroids on 09/25 may be contributing to the her delirium/confusion, transition to IV due to n.p.o. Patient weaned off oxygen. borderline SpO2 at rest down to 90% at times Difficult to fully assess patient due to dementia and confusion. Possibility of some delirium component. 09/24 tmax: 99.9, UA with slight bacteriuria, empirically started on Rocephin, discontinued 09/27 after negative cultures Pulmonology consulted Zosyn started 09/27 due to concern for aspiration pneumonia, coughing while eating, chest x-ray findings Continue aspirin and Plavix for history of CVA. Patient at baseline is bedridden. CT head done due to continued altered mental status, negative Concern for aspiration, patient with worsening cough while trying to swallow, nursing noted some difficulty swallowing the evening of 09/26 p.o., IV fluids, speech therapy consulted Dispo: anticipate dc home in ~2448hrs to resume home health
[2021-09-28] MEDS: ENSURE ENLIVE 237 ML CAN PO SCH ×2 (09:00→20:56)
[2021-09-28] MEDS ORDERED: POTASSIUM CL 40 MEQ in NA CHLORIDE 0.9% 500 ML IV ONE (09:00)
[2021-09-28] MEDS ORDERED: POTASSIUM CL 40 MEQ in NA CHLORIDE 0.9% 500 ML IV SCH (09:00)
[2021-09-28] MEDS: KCL 20 MEQ/100 mL IVPB 100 ML IV SCH ×2 (09:12→11:00)
[2021-09-28] MEDS: lisinopriL 10 MG TAB PO SCH (09:13)
[2021-09-28] MEDS: AMLODIPINE 10 MG TAB PO SCH (09:13)
[2021-09-28] MEDS: ENOXAPARIN 40 MG/0.4 ML SQ SCH (09:13)
[2021-09-28] MEDS: METHYLPREDNISOLONE 40 MG INJ IV SCH ×2 (09:14→20:55)
[2021-09-28] MEDS: SERTRALINE HCL 50 MG TAB PO SCH (09:14)
[2021-09-28] MEDS: CLOPIDOGREL 75 MG TABLET PO SCH (09:14)
[2021-09-28] MEDS: FAMOTIDINE 20 MG TAB PO SCH ×2 (09:14→20:55)
[2021-09-28] MEDS: ASPIRIN EC 81 MG TAB PO SCH (09:14)
[2021-09-28] MEDS: NA CHLORIDE 0.9% 1,000 ML IV SCH (10:00)
--- NOTE | 2021-09-28 11:38 | CON ---
Date of Consultation: 09/27/2021 Reason For Consultation: Junctional bradycardia. History Of Present Illness: Ms. Harris is 86. History of CVA and depression, allergic to Cipro, ad mitted for COVID and had been treated for that since. Was noted to have some junctional bradycardia. I was consulted. No symptoms reported. Medications: Include aspirin, Norvasc, Plavix, Lovenox, Pepcid, lisinopril, and hydralazine. Review of Systems: Noncontributory. Social History: Noncontributory. Family History: Noncontributory. Physical Examination: General: She has bradycardia, not junctional. Vital Signs: Otherwise stable. Afebrile. HEENT: Negative. Neck: Supple with no bruit. Chest: Reveals rales at both bases. Cardiac: Revealed S4 gallops. Aortic sclerosis murmur. Abdomen: Benign. Extremities: Revealed no clubbing, cyanosis, or edema. Diagnostic Data: Unremarkable otherwise. Impression And Plan: Sinus bradycardia and junctional bradycardia, not on beta-blockers, just observ e. Get an echocardiogram. Obtain a TSH. No need for further workup at this point. Rest of her pro blems including hypertension, COVID, and gastroesophageal reflux disease are stable. I agree with the present regimen. We will see what her rhythm does and her echo shows tomor row. KWABENA/SONAM Voice ID: [id number] Report ID: [id number]
--- NOTE | 2021-09-28 11:58 | PN ---
Date of Progress Note: 09/28/2021 Ms. Harris was seen because of junctional bradycardia, sinus rhythm, and sinus bradycardia without a ny cardiac complaint. She is not on a beta-tomeka. Echocardiogram is pending today. She remained hemodynamically stable. Today, she is in sinus bradycardia with occasional PACs. No change in medic al therapy. If the echocardiogram shows anything, I will follow up on that. Meanwhile, continue pre sent regimen. I will sign off her case. KWABENA/SONAM Voice ID: [id number] Report ID: [id number]
[2021-09-29] MEDS: PIPER TAZO 3.375 GM in NA CHLORIDE 0.9% 100 ML IV SCH ×3 (01:09→17:00)
[2021-09-29 06:39] LABS: Hematocrit 28.3 % (36.0-45.0); MPV 8.9 fL (7.6-11.3)
[2021-09-29 06:47] LABS: BUN Blood Urea Nitrogen 14 mg/dL (7-18); Bicarbonate 23 mmol/L (21-32); Glucose Level 152 mg/dL (74-106); Magnesium 2.2 mg/dL (1.8-2.4); Potassium 3.1 mmol/L (3.5-5.1); Sodium Level 144 mmol/L (136-145)
--- NOTE | 2021-09-29 07:23 | ECHO ---
HEIGHT: 5 ft 5 in WEIGHT: 150 lb 0 oz DATE OF STUDY: 09/28/[address]: Scot Parker MD 2-DIMENSIONAL: YES M.MODE: YES DOPPLER: YES COLOR FLOW: YES TDS: PORTABLE: DEFINITY: BUBBLE STUDY: DIAGNOSIS: JUNCTIONAL BRADYCARDIA CARDIAC HISTORY: CATHERIZATION: NO SURGERY: NO PROSTHETIC VALVE: NO PACEMAKER: NO MEASUREMENTS (cm) DIASTOLIC (NORMALS) SYSTOLIC (NORMALS) IVSd 0.8 (0.6-1.2) LA Diam (1.9-4.0) LVEF 60-65% LVIDd 3.8 (3.5-5.7) LVIDs 2.0 (2.0-3.5) %FS 47% LVPWd 0.9 (0.6-1.2) Ao Diam 2.7 (2.0-3.7) 2 DIMENSIONAL ASSESSMENT: RIGHT ATRIUM: NORMAL LEFT ATRIUM: NORMAL RIGHT VENTRICLE: NORMAL LEFT VENTRICLE: NORMAL TRICUSPID VALVE: NORMAL MITRAL VALVE: NORMAL PULMONIC VALVE: NORMAL AORTIC VALVE: NORMAL PERICARDIAL EFFUSION: NONE AORTIC ROOT: NORMAL LEFT VENTRICULAR WALL MOTION: NORMAL DOPPLER/COLOR FLOW: NORMAL COMMENTS: NORMAL LEFT VENTRICULAR EJECTION FRACTION 60-65%. NORMAL WALL MOTION. TECHNOLOGIST: JONATHON ANDRES
[2021-09-29] MEDS ORDERED: POTASSIUM 25 MEQ EFFERV TAB PO ONE (09:00)
[2021-09-29] MEDS: ENSURE ENLIVE 237 ML CAN PO SCH (09:00)
[2021-09-29] MEDS: ASPIRIN EC 81 MG TAB PO SCH (09:25)
[2021-09-29] MEDS: ENOXAPARIN 40 MG/0.4 ML SQ SCH (09:25)
[2021-09-29] MEDS: lisinopriL 10 MG TAB PO SCH (09:25)
[2021-09-29] MEDS: METHYLPREDNISOLONE 40 MG INJ IV SCH (09:25)
[2021-09-29] MEDS: FAMOTIDINE 20 MG TAB PO SCH (09:25)
[2021-09-29] MEDS: CLOPIDOGREL 75 MG TABLET PO SCH (09:25)
[2021-09-29] MEDS: SERTRALINE HCL 50 MG TAB PO SCH (09:25)
[2021-09-29] MEDS: AMLODIPINE 10 MG TAB PO SCH (09:25)
--- NOTE | 2021-09-29 15:16 | P.DS ---
Admission Date: 09/19/21 Discharge Date: 09/29/21 Disposition: ROUTINE DISCHARGE Discharge Condition: FAIR Reason for Admission: Shortness of breath - Problems (1) Acute respiratory failure with hypoxia Current Visit: Yes Status: Acute (2) Pneumonia due to COVID-19 virus Current Visit: Yes Status: Acute (3) History of CVA (cerebrovascular accident) Current Visit: Yes Status: Acute Brief History of Present Illness: 86-year-old man with a history of CVA with left-sided weakness, bedridden was brought to the emergency department due to progressive shortness of breath. Patient was in the ED 1 week earlier for cough and fever and tested positive for COVID-19. Since then her symptoms have gotten progressively worse. Patient noted to be hypoxic in the ED today. Chest x-ray demonstrate diffuse bilateral infiltrates. She is maintained on 3 L oxygen by nasal cannula. Patient awake and interactive meaningfully. She was admitted for further management. Hospital Course: Problem List Acute hypoxemic respiratory failure secondary to COVID-19 pneumonia Aspiration pneumonia History of CVA nonambulatory Dementia Depression Bedbound Hospital Course Patient admitted to the medical floor and treated for COVID-pneumonia with IV steroid. Patient developed altered mental status which could be related to the IV steroid or COVID. She initially required oxygen but was weaned off to room air as she improved with treatment. She is currently tolerating room air with SaO2 in the mid 90s. UA with slight bacteriuria, treated briefly with IV Rocephin. Urine culture yielded no growth. Pulmonology seen and assisted with management. There was a concern for aspiration because patient was seen coughing during her meal. Patient seen by speech who recommended mechanical soft, ground diet and thin liquids. Continued aspirin and Plavix for history of CVA. Patient at baseline is bedridden. CT head done due to altered mental status, negative Patient seen by cardiology for sinus bradycardia/junctional bradycardia. TSH is ordered and the result is pending. Echocardiogram is unremarkable. Cardiology recommended no beta-tomeka. Patient clinically improved, stable on room air. She is discharged with prednisone taper. She was hypertensive which was managed with lisinopril and amlodipine. Vital Signs/Physical Exam: Temp Pulse Resp BP Pulse Ox 97.3 F 53 18 142/58 H 96 09/29/21 11:45 09/29/21 11:45 09/29/21 11:45 09/29/21 11:45 09/29/21 11:45 General: In no apparent distress, Other (Awake and interactive) HEENT: PERRLA, Mucous membr. moist/pink Neck: JVD not distended Respiratory: Other (Nonlabored breathing.) Cardiovascular: No edema, Normal S1 S2, Irregular heart rate/rhythm Gastrointestinal: Soft and benign, Non-distended Musculoskeletal: No swelling Integumentary: No rashes Neurological: Other (Moves all extremities.) Laboratory Data at Discharge: WBC 9.10 K/uL (4.3-10.9) 09/29/21 05:52 Hgb 9.3 g/dL (12.0-15.0) L 09/29/21 05:52 Hct 28.3 % (36.0-45.0) L 09/29/21 05:52 Plt Count 310 K/uL (152-406) 09/29/21 05:52 PT 13.6 SECONDS (9.5-12.5) H 09/19/21 07:39 INR 1.18 09/19/21 07:39 Sodium 144 mmol/L (136-145) 09/29/21 05:52 Potassium 3.1 mmol/L (3.5-5.1) L 09/29/21 05:52 BUN 14 mg/dL (7-18) 09/29/21 05:52 Creatinine 0.43 mg/dL (0.55-1.3) L 09/29/21 05:52 Glucose 152 mg/dL (74-106) H 09/29/21 05:52 Phosphorus 3.0 mg/dL (2.5-4.9) 09/20/21 04:27 Magnesium 2.2 mg/dL (1.8-2.4) 09/29/21 05:52 Total Bilirubin 0.5 mg/dL (0.2-1.0) 09/22/21 03:47 AST 23 U/L (15-37) 09/22/21 03:47 ALT 29 U/L (12-78) 09/22/21 03:47 Alkaline Phosphatase 93 U/L (45-117) 09/22/21 03:47 Triglycerides 121 mg/dL (<150) 09/20/21 04:27 Cholesterol 137 mg/dL (<200) 01/02/22 04:27 HDL Cholesterol 27 mg/dL (40-60) L 09/20/21 04:27 Cholesterol/HDL Ratio 5.07 09/20/21 04:27 Home Medications: Aspirin [Aspirin EC 81 MG] 81 mg PO DAILY 30 Days #30 tablet. 01/13/21 Atorvastatin Calcium [Lipitor] 40 mg PO BEDTIME 30 Days #30 tab 01/13/21 Clopidogrel Bisulfate [Plavix*] 75 mg PO DAILY 30 Days #30 tablet 01/13/21 Folic Acid 1 mg PO DAILY 30 Days #30 tablet 01/13/21 Nystatin Powder [Mycostatin (Powder)*] 1 appl TOP DAILY PRN 21 Days #1 btl 01/13/21 Pantoprazole Sodium [Protonix] 40 mg PO BID 09/26/21 Sertraline [Zoloft*] 50 mg PO DAILY 09/26/21 Amlodipine [Norvasc*] 10 mg PO DAILY #30 tab 09/29/21 Ensure Enlive 237 ml PO BID #60 can 09/29/21 Famotidine [Pepcid*] 20 mg PO BID #60 tab 09/29/21 lisinopriL [Prinivil*] 10 mg PO DAILY #30 tab 09/29/21 predniSONE [Deltasone] 20 mg PO BID #15 tab 09/29/21 New Medications: Ensure Enlive 237 ml PO BID #60 can Amlodipine [Norvasc*] 10 mg PO DAILY #30 tab Famotidine [Pepcid*] 20 mg PO BID #60 tab predniSONE [Deltasone] 20 mg PO BID #15 tab lisinopriL [Prinivil*] 10 mg PO DAILY #30 tab Diet: AHA Activity: Bedbound Followup: ISABELLA MASON [Primary Care Provider] - 1-2 Weeks Time spent managing pt's care (in minutes): 42
[2021-09-29 17:32] VITALS: BP 132/52; TEMP 97.1
[2021-09-29 18:22] VITALS: O2SAT 97
== END 2021-09-29 19:15 | disposition home health service (06) | DRG 177 ==
LOC: ER 08:00 → ERHOLD 11:06 → 4TH 09-20 20:37
PROVIDERS: ADMIT Internal Medicine; ATTEND Internal Medicine
DX: U07.1 COVID-19 (principal); J12.82 Pneumonia due to coronavirus disease 2019; J96.01 Acute respiratory failure with hypoxia; J69.0 Pneumonitis due to inhalation of food and vomit; I69.354 Hemiplegia and hemiparesis following cerebral infarction affecting left non-dominant side; E87.6 Hypokalemia; K21.9 Gastro-esophageal reflux disease without esophagitis; F03.90 Unspecified dementia, unspecified severity, without behavioral disturbance, psychotic disturbance, mood disturbance, and anxiety; F32.A Depression, unspecified; I10 Essential (primary) hypertension; E83.42 Hypomagnesemia; R00.1 Bradycardia, unspecified; Z88.1 Allergy status to other antibiotic agents; Z74.01 Bed confinement status; Z79.82 Long term (current) use of aspirin; Z79.02 Long term (current) use of antithrombotics/antiplatelets; Z79.899 Other long term (current) drug therapy; Z79.52 Long term (current) use of systemic steroids
CPT/HCPCS: 36415; 70450; 71045; 80048; 80053; 80061; 80076; 81003; 81015; 82728; 83605; 83735; 83880; 84100; 84132; 84145; 84443; 84484; 85025; 85027; 85379; 85610; 86140; 87040; 87086; 87088; 87205; 92610; 93005; 93306; 94760; 96365; 96366; 96375; 97110; 97161; 97530; 99285; J0360; J0456; J1650; J1940; J2543; J2920; J2930; J3475; J3480; J7030; J7040; J7050; J7512

== ENCOUNTER 2021-12-01 14:28 | Inpatient (IN) | payer OTHER ==
[2021-12-01 15:35] LABS: Absolute Lymphocytes (CBC) 3.6 K/uL (0.7-4.9); Hematocrit 28.6 % (36.0-45.0); Lymphocytes % 38.9 % (15.3-44.8); MPV 6.9 fL (7.6-11.3); RBC Red Blood Cell Count 3.12 M/uL (3.86-4.86)
--- NOTE | 2021-12-01 15:40 | RAD REPORT ---
EXAM DESCRIPTION: RAD - Chest Single View - 12/01/2021 3:24 pm CLINICAL HISTORY: COUGH Chest pain. COMPARISON: Chest Single View dated 09/27/2021; Chest Single View dated 09/27/2021; Chest Single View da tania 09/27/2021; Chest Single View dated 09/27/2021 FINDINGS: Portable technique limits examination quality. Interstitial markings are present bilaterally suggesting viral infection or emphysema. The heart is u pper limit normal in size. No displaced fractures.
[2021-12-01 15:48] LABS: ALT/SGPT 29 U/L (12-78); AST/SGOT 34 U/L (15-37); Albumin 2.6 g/dL (3.4-5.0); Alkaline Phosphatase 129 U/L (45-117); BUN Blood Urea Nitrogen 14 mg/dL (7-18); Bicarbonate 27 mmol/L (21-32); Bilirubin Total 0.4 mg/dL (0.2-1.0); Glucose Level 100 mg/dL (74-106); Potassium 3.5 mmol/L (3.5-5.1); Sodium Level 140 mmol/L (136-145)
[2021-12-01 15:52] LABS: Urine Blood Trace-intact (Negative); Urine Glucose Negative (Negative); Urine Protein 2+ (Negative); Urine pH 7.5 (5.0-7.0)
[2021-12-01 16:07] LABS: Urine RBC <5 /HPF (NONE SEEN)
[2021-12-01 16:08] LABS: Urine Bacteria LOADED /HPF (<20)
--- NOTE | 2021-12-01 16:19 | EDPHYS ---
Physician Documentation [facility] Name: Tamanna Harris Age: 86 yrs Sex: Female : 1935 Arrival Date: 12/01/2021 Time: 14:29 Bed 5 Private MD: ED Physician Raj De Los Santos HPI: 12/01 15:03 This 86 yrs old Female presents to ER via Wheelchair with complaints of UTI. ms3 15:03 The patient presents with Positive urine culture. Onset: The symptoms/episode ms3 began/occurred last week. Modifying factors: The symptoms are alleviated by nothing, the symptoms are aggravated by nothing. Associated signs and symptoms:. The patient has experienced similar episodes in the past. 86-year-old female with past medical history of CVA in December presents with her daughter for 1 week of increased confusion, poor p.o. intake and increased sleeping. Patient had urinalysis performed at her primary care physician's office on November 24, 2021 which grew Pseudomonas aeruginosa that was susceptible to Cipro, Zosyn daughter states nurse practitioner instructed patient to come to the emergency department for IV antibiotics as patient is allergic to fluoroquinolones. Patient denies pain. Patient's daughter denies alleviating or inciting factors.. Historical: - Allergies: 14:48 Cipro; ab2 - PMHx: 14:48 CVA; depressive disorder; LEFT SIDED WEAKNESS; ab2 - PSHx: 14:48 None; ab2 - Immunization history:: Adult Immunizations up to date. - Social history:: Smoking status: Patient denies any tobacco usage or history of. ROS: 15:03 Constitutional: Negative for fever, and chills. Eyes: Negative for injury, pain, ms3 redness, and discharge, Neck: Negative for injury, pain, and swelling, Cardiovascular: Negative for chest pain, and palpitations. Respiratory: Negative for shortness of breath, cough, wheezing, and pleuritic chest pain, Abdomen/GI: Negative for abdominal pain, nausea, vomiting, diarrhea, and constipation, MS/Extremity: Negative for injury and deformity, Skin: Negative for injury, rash, and discoloration, Neuro: Negative for headache, weakness, numbness, tingling. Psych: Negative for depression, anxiety, suicide ideation, homicidal ideation, and hallucinations. 15:03 All other systems are negative. Exam: 14:53 ECG was reviewed by the Attending Physician. ms3 15:03 Constitutional: This is a well developed, well nourished patient who is awake, alert, ms3 and in no acute distress. Head/Face: Normocephalic, atraumatic. Neck: Trachea midline, no cervical lymphadenopathy. Supple, full range of motion without nuchal rigidity, or vertebral point tenderness. No Meningismus. Chest/axilla: Normal chest wall appearance and motion. Nontender with no deformity. Cardiovascular: Regular rate and rhythm with a normal S1 and S2. No gallops, murmurs, or rubs. Normal PMI, no JVD. No pulse deficits. Respiratory: Lungs have equal breath sounds bilaterally, clear to auscultation and percussion. No rales, rhonchi or wheezes noted. No increased work of breathing, no retractions or nasal flaring. Abdomen/GI: Soft, non-tender, with normal bowel sounds. No distension or tympany. No guarding or rebound. No evidence of tenderness throughout. Skin: Warm, dry with normal turgor. Normal color with no rashes, no lesions, and no evidence of cellulitis. Vital Signs: 14:45 BP 143 / 76; Pulse 94; Resp 18; Temp 99.7; Pulse Ox 95% on R/A; Weight 65.32 kg; Height ab2 5 ft. 3 in. (160.02 cm); Pain 0/10; 15:57 BP 114 / 86; Pulse 93; Resp 16; Pulse Ox 94% on R/A; ww 16:30 BP 131 / 58; Pulse 80; Resp 20; Pulse Ox 96% on R/A; ww 17:25 BP 141 / 75; Pulse 83; Resp 22; Pulse Ox 95% ; ww 18:33 BP 155 / 72; Pulse 101; Resp 20; Temp 99.2; Pulse Ox 97% on R/A; vg1 19:29 BP 136 / 82; Pulse 102; Resp 18 S; Pulse Ox 94% on R/A; as6 14:45 Body Mass Index 25.51 (65.32 kg, 160.02 cm) ab2 MDM: 15:02 Patient medically screened. ms3 16:18 ED course: Discussed case with Dr Morrison. He accepts patient as admission. Discussed ms3 plan with patient and her daughter. Patient remains in stable condition.. 16:18 Differential diagnosis: urinary tract infection, Electrolyte abnormality vs ms3 Encephalopathy. Data reviewed: vital signs, nurses notes, old medical records, Urine culture sensitivities lab test result(s), radiologic studies. 12/01 15:02 Order name: CBC with Diff; Complete Time: 16:03 ms3 12/01 15:02 Order name: CMP; Complete Time: 16:03 ms3 12/01 15:02 Order name: Urine Microscopic Only; Complete Time: 16:18 ms3 12/01 15:52 Order name: Urine Dipstick-Ancillary; Complete Time: 16:03 EDMS 12/01 16:09 Order name: Urine Culture EDMS 12/01 16:19 Order name: Blood Culture Adult (2) ms3 12/01 15:02 Order name: Chest Single View XRAY; Complete Time: 16:03 ms3 12/01 15:02 Order name: Cardiac monitoring; Complete Time: 15:20 ms3 12/01 15:02 Order name: Cath; Complete Time: 15:49 ms3 12/01 15:02 Order name: EKG - Nurse/Tech; Complete Time: 15:57 ms3 12/01 15:02 Order name: IV Saline Lock - Large Bore; Complete Time: 15:20 ms3 12/01 16:52 Order name: COVID-19 SARS RT PCR (Document "Date of Onset" if Symptomatic) vg1 12/01 17:18 Order name: CONS Physician Consult EDMS 12/01 15:02 Order name: Labs collected and sent; Complete Time: 15:20 ms3 12/01 15:02 Order name: O2 Per Protocol; Complete Time: 15:20 ms3 12/01 15:02 Order name: O2 Sat Monitoring; Complete Time: 15:20 ms3 EC:53 Rate is 88 beats/min. Rhythm is regular. QRS [place] is Normal. Clinical impression: NSR ms3 w/ Non-specific ST/T Changes. Interpreted by me. Administered Medications: 16:53 Drug: Zosyn (piperacillin-tazobactam) 3.375 grams Route: IVPB; Infused Over: 60 mins; ww Site: right antecubital; 18:00 Follow up: IV Status: Completed infusion; IV Intake: 100ml vg1 Disposition Summary: 12/01/21 16:18 Hospitalization Ordered Hospitalization Status: Inpatient Admission ms3 Provider: Ramos Morrison ms3 Location: Telemetry/MedSurg (Inpatient) ms3 Condition: Stable ms3 Problem: new ms3 Symptoms: are unchanged ms3 Bed/Room Type: Standard ms3 Room Assignment: 204(12/01/21 18:31) bd Diagnosis - UTI/ Urinary tract infection, site not specified ms3 - confusion ms3 - Poor po intake ms3 - Other malaise and fatigue ms3 Forms: - Medication Reconciliation Form ms3 - SBAR form ms3 Signatures: Dispatcher [employer] EDMS Mya Sanchez bd Raj De Los Santos, DO ms3 Alivia Elizondo RN RN ww Erik Palomares Victoria RN vg1 Corrections: (The following items were deleted from the chart) 18: 16:18 ms3 bd
--- NOTE | 2021-12-01 16:19 | ER ---
Nurse's Notes [facility] Name: Tamanna Harris Age: 86 yrs Sex: Female : 1935 Arrival Date: 12/01/2021 Time: 14:29 Bed 5 Private MD: Diagnosis: UTI/ Urinary tract infection, site not specified;confusion;Poor po intake;Other malaise and fatigue Presentation: 12/01 14:45 Chief complaint: Patient's son or daughter states: "She has a UTI, Dr. Obando ab2 suggested I come here for IV antibiotics, because she is allergic to cipro." Daughter states pt is confused and is c/o burning on urination. Chief complaint:. Coronavirus screen: Vaccine status: Patient reports receiving the 2nd dose of the covid vaccine. Client denies travel out of the [place] in the last 14 days. At this time, the client does not indicate any symptoms associated with coronavirus-19. Ebola Screen: Patient negative for fever greater than or equal to 101.5 degrees Fahrenheit, and additional compatible Ebola Virus Disease symptoms Patient denies exposure to infectious person. Patient denies travel to an Ebola-affected area in the 21 days before illness onset. No symptoms or risks identified at this time. Initial Sepsis Screen: Does the patient meet any 2 criteria? No. Patient's initial sepsis screen is negative. Does the patient have a suspected source of infection? No. Patient's initial sepsis screen is negative. Risk Assessment: Do you want to hurt yourself or someone else? Patient reports no desire to harm self or others. Onset of symptoms is unknown. 14:45 Method Of Arrival: Wheelchair ab2 14:45 Acuity: ROBERT 3 ab2 Triage Assessment: 14:49 General: Appears in no apparent distress. comfortable, Behavior is calm, cooperative. ab2 Pain: Denies pain. Neuro: Level of Consciousness is awake, alert, Oriented to person, place, situation. : Reports burning with urination. Historical: - Allergies: 14:48 Cipro; ab2 - PMHx: 14:48 CVA; depressive disorder; LEFT SIDED WEAKNESS; ab2 - PSHx: 14:48 None; ab2 - Immunization history:: Adult Immunizations up to date. - Social history:: Smoking status: Patient denies any tobacco usage or history of. Screenin:54 Abuse screen: Denies threats or abuse. Denies injuries from another. Nutritional ww screening: No deficits noted. Tuberculosis screening: No symptoms or risk factors identified. Fall Risk No fall in past 12 months (0 pts). No secondary diagnosis (0 pts). IV access (20 points). Ambulatory Aid- None/Bed Rest/Nurse Assist (0 pts). Gait- Normal/Bed Rest/Wheelchair (0 pts) Mental Status- Oriented to own ability (0 pts). Total Tobin Fall Scale indicates No Risk (0-24 pts). Assessment: 15:35 General: Appears in no apparent distress. Behavior is cooperative. Neuro: Level of ww Consciousness is awake, alert, obeys commands, Paralysis in left. Cardiovascular: Patient's skin is warm and dry. Chest pain is denied. Respiratory: Airway is patent Respiratory effort is even, unlabored, Respiratory pattern is regular, symmetrical. GI: Abdomen is non-distended, Abd is soft and non tender X 4 quads. : Urine is cloudy, Parent/caregiver report the patient having pain. EENT: No signs and/or symptoms were reported regarding the EENT system. Derm: Skin is fragile, is thin. 16:34 Reassessment: Patient appears in no apparent distress at this time. No changes from ww previously documented assessment. Patient and/or family updated on plan of care and expected duration. Pain level reassessed. 17:25 Reassessment: Patient appears in no apparent distress at this time. No changes from ww previously documented assessment. Patient and/or family updated on plan of care and expected duration. Pain level reassessed. Dr. Brothers at bedside. Daughter at bedside. 18:35 Reassessment: Patient appears in no apparent distress at this time. No changes from vg1 previously documented assessment. Patient and/or family updated on plan of care and expected duration. Pain level reassessed. Patient is alert, oriented x 3, equal unlabored respirations, skin warm/dry/pink. 19:27 General: Daughter Jane [phone], family updated on plan of care . as6 19:37 General: attempted to call report . as6 Vital Signs: 14:45 BP 143 / 76; Pulse 94; Resp 18; Temp 99.7; Pulse Ox 95% on R/A; Weight 65.32 kg; Height ab2 5 ft. 3 in. (160.02 cm); Pain 0/10; 15:57 BP 114 / 86; Pulse 93; Resp 16; Pulse Ox 94% on R/A; ww 16:30 BP 131 / 58; Pulse 80; Resp 20; Pulse Ox 96% on R/A; ww 17:25 BP 141 / 75; Pulse 83; Resp 22; Pulse Ox 95% ; ww 18:33 BP 155 / 72; Pulse 101; Resp 20; Temp 99.2; Pulse Ox 97% on R/A; vg1 19:29 BP 136 / 82; Pulse 102; Resp 18 S; Pulse Ox 94% on R/A; as6 14:45 Body Mass Index 25.51 (65.32 kg, 160.02 cm) ab2 ED Course: 14:29 Patient arrived in ED. ds1 14:48 Triage completed. ab2 14:50 Arm band placed on left wrist. ab2 14:54 Raj De Los Santos DO is Attending Physician. ms3 15:06 Audra Benito, ABBY is Primary Nurse. vg1 15:24 Chest Single View XRAY In Process Unspecified. EDMS 15:55 Patient has correct armband on for positive identification. Bed in low position. Call ww light in reach. Side rails up X2. Adult w/ patient. 15:55 Urine collected: straight cath specimen, cloudy. ww 15:55 Inserted saline lock: 22 gauge in right antecubital area, using aseptic technique. ww Blood collected. 16:17 Ramos Morrison MD is Hospitalizing Provider. ms3 20:10 No provider procedures requiring assistance completed. Patient admitted, IV remains in as6 place. Administered Medications: 16:53 Drug: Zosyn (piperacillin-tazobactam) 3.375 grams Route: IVPB; Infused Over: 60 mins; ww Site: right antecubital; 18:00 Follow up: IV Status: Completed infusion; IV Intake: 100ml vg1 Intake: 18:00 IV: 100ml; Total: 100ml. vg1 Outcome: 16:18 Decision to Hospitalize by Provider. ms3 20:10 Admitted to Med/surg accompanied by tech, family with patient, via stretcher, room 204, as6 with chart, Report called to Kristina MORA 20:10 Condition: stable 20:10 Instructed on the need for admit. 20:11 Patient left the ED. as6 Signatures: Dispatcher [employer] EDMS Sánchez, Sherie ds1 Audra Benito, RN RN vg1 Raj De Los Santos DO DO ms3 Paras Rangel RN RN as6 Alivia Elizondo RN RN ww Erik Palomares Corrections: (The following items were deleted from the chart) 18:39 18:33 BP 155 / 72; Pulse 101bpm; Resp 20bpm; Pulse Ox 97% RA; vg1 vg1
[2021-12-01] MEDS ORDERED: NA CHLORIDE 0.9% 100 ML IV ONE (16:41)
[2021-12-01] MEDS ORDERED: PIPERACIL/TAZO 3.375 GM VIAL IV ONE (16:41)
--- NOTE | 2021-12-01 17:27 | P.HP ---
Certification for Inpatient Patient admitted to: Inpatient With expected LOS: >2 Midnights Practitioner: I am a practitioner with admitting privileges, knowledge of patient current condition, hospital course, and medical plan of care. Services: Services provided to patient in accordance with Admission requirements found in Title 42 Section 412.3 of the Code of Federal Regulations Patient History Date of Service: 12/01/21 Reason for admission: UTI, needs IV antibiotics History of Present Illness: 86yo F, PMH: CVA with L sided weakness (bedbound), dementia Presents to ED under guidance from her PCP for IV antibiotics. Patient's daughter states that patient has not been feeling well over the last week, decreased p.o. intake, sleeping more/more tired, some nausea, foul-smelling urine. Urine sample was checked several days ago, and recently resulted growing Pseudomonas. Sensitivities reportedly to Zosyn, meropenem, and fluoroquinolones. Patient's daughter states patient had a bad reaction to ciprofloxacin. Patient's daughter also states patient has been a little bit more confused than usual lately as well, with generalized weakness. At baseline, patient does not ambulate. In the ED, patient noted to be slightly confused, afebrile, with urine grossly positive for bacteria, leuks. Allergies ciprofloxacin [From Cipro] Adverse Reaction (Verified 09/19/21 18:29) Rash Home Medications: Aspirin [Aspirin EC 81 MG] 81 mg PO DAILY 30 Days #30 tablet.dr 01/13/21 Atorvastatin Calcium [Lipitor] 40 mg PO BEDTIME 30 Days #30 tab 01/13/21 Clopidogrel Bisulfate [Plavix*] 75 mg PO DAILY 30 Days #30 tablet 01/13/21 Folic Acid 1 mg PO DAILY 30 Days #30 tablet 01/13/21 Nystatin Powder [Mycostatin (Powder)*] 1 appl TOP DAILY PRN 21 Days #1 btl 01/13/21 Pantoprazole Sodium [Protonix] 40 mg PO BID 09/26/21 Sertraline [Zoloft*] 50 mg PO DAILY 09/26/21 Amlodipine [Norvasc*] 10 mg PO DAILY #30 tab 09/29/21 Ensure Enlive 237 ml PO BID #60 can 09/29/21 Famotidine [Pepcid*] 20 mg PO BID #60 tab 09/29/21 lisinopriL [Prinivil*] 10 mg PO DAILY #30 tab 09/29/21 predniSONE [Deltasone] 20 mg PO BID #15 tab 09/29/21 - Past Medical/Surgical History Diabetic: No -: Eye allergy -: CVA - Family History Mother -: Hypertension, Diabetes Father -: Liver disease Notes: Cirrhosis - Social History Smoking Status: Never smoker Alcohol use: Yes CD- Drugs: No Caffeine use: Yes Place of Residence: Home Review of Systems 10-point ROS is otherwise unremarkable Physical Examination - Physical Exam General: Alert, In no apparent distress, Oriented x1, Confused HEENT: Sclerae nonicteric Respiratory: Clear to auscultation bilaterally Cardiovascular: Regular rate/rhythm, Edema (trace b/l pedal) Gastrointestinal: Soft and benign, Non-distended, No tenderness Musculoskeletal: No erythema, No tenderness Integumentary: No rashes, No significant lesion Neurological: Normal speech, Normal affect, Other (L sided weakness) - Studies Laboratory Data (last 24 hrs) 12/01/21 15:19: Sodium 140, Potassium 3.5, BUN 14, Creatinine 0.55, Glucose 100, Total Bilirubin 0.4, AST 34, ALT 29, Alkaline Phosphatase 129 H 12/01/21 15:19: WBC 9.20, Hgb 9.6 L, Hct 28.6 L, Plt Count 646 H Assessment and Plan - Advance Directives Does patient have a Living Will: Yes Does patient have a Durable POA for Healthcare: No Physician Review Additional Text: Problem list UTI, Pseudomonas History of CVA, nonambulatory Dementia Urine culture grew Pseudomonas, patient allergic to p.o. options ED started zosyn, continue for now repeat urine culture, obtain blood culture patient does not appear septic at this time, vitals WNL/stable, no leukocytosis gentle IVF overnight confirm home meds ID consulted VTE: lovenox Code: full - per daughter Dispo: SNF for IV antibiotics if needed, vs home, ~2 days Time Spent Managing Pts Care (In Minutes): 60
[2021-12-01 21:06] VITALS: BMI 29.0
[2021-12-01] MEDS ORDERED: NA CHLORIDE 0.9% 1,000 ML IV SCH (22:18)
[2021-12-01] MEDS ORDERED: ONDANSETRON 4 MG/2 ML VIAL IV PRN (22:18)
[2021-12-02] MEDS: PIPER TAZO 3.375 GM in NA CHLORIDE 0.9% 100 ML IV SCH ×3 (01:33→16:40)
--- NOTE | 2021-12-02 06:07 | P.PN ---
Date of Service: 12/02/21 Subjective: feels better this morning had difficulty swallowing / coughing episode overnight daughter states this is typical for patient at home, intermittently occurs has previously been evaluated by speech during prior admissions no new pains/symptoms per patient this morning ROS: 10 point ROS as noted above, otherwise negative Physical exam General: Alert, In no apparent distress, Oriented x2, pleasantly confused HEENT: Sclerae nonicteric Respiratory: Clear to auscultation bilaterally Cardiovascular: Regular rate/rhythm, Edema (trace b/l pedal) Gastrointestinal: Soft and benign, Non-distended, No tenderness Neurological: Normal speech, Normal affect, Other (L sided weakness) Problem list UTI, Pseudomonas History of CVA, nonambulatory Dementia outpatient Urine culture grew Pseudomonas, patient allergic to p.o. options ED started zosyn, continue for now repeat urine culture pending, blood culture pending ID consulted patient does not appear septic at this time feels betters this morning had coughing episode with liquids overnight, made NPO, speech saw patient, cleared for regular diet confirm home meds, restart as appropriate VTE: lovenox Code: full - per daughter Dispo: SNF for IV antibiotics if needed, vs home, ~2 days Time Spent Managing Pts Care (In Minutes): 35
[2021-12-02 06:29] LABS: Absolute Lymphocytes (CBC) 2.2 K/uL (0.7-4.9); Hematocrit 25.5 % (36.0-45.0); Lymphocytes % 29.1 % (15.3-44.8); RBC Red Blood Cell Count 2.74 M/uL (3.86-4.86)
[2021-12-02 06:58] LABS: ALT/SGPT 26 U/L (12-78); AST/SGOT 36 U/L (15-37); Albumin 2.3 g/dL (3.4-5.0); Alkaline Phosphatase 108 U/L (45-117); BUN Blood Urea Nitrogen 10 mg/dL (7-18); Bicarbonate 27 mmol/L (21-32); Bilirubin Total 0.5 mg/dL (0.2-1.0); Glucose Level 88 mg/dL (74-106); Protein, Total 5.2 g/dL (6.4-8.2); Sodium Level 142 mmol/L (136-145)
[2021-12-02 07:01] LABS: Magnesium 1.4 mg/dL (1.8-2.4)
--- NOTE | 2021-12-02 07:23 | EKG ---
Test Date: 2021-12-01 Test Time: 14:53:43 Specialist Field Engineer: LUCITA MEASUREMENT RESULTS: Intervals: Rate: 88 NJ: 182 QRSD: 72 QT: 384 QTc: 464 [place]: P: 47 NJ: 182 QRS: 7 T: 5 INTERPRETIVE STATEMENTS: Normal sinus rhythm Inferior infarct, age undetermined Abnormal ECG Compared to ECG 09/26/2021 05:02:25 Myocardial infarct finding now present Sinus tachycardia no longer present ST (T wave) deviation no longer present Possible ischemia no longer present Electronically Signed On 12-02-21 07:22:04 CDT by Scot Parker
[2021-12-02] MEDS ORDERED: PNEUMOCOCCAL VACCINE 0.5 ML IMVAC ONE (08:00)
[2021-12-02] MEDS ORDERED: Magnesium Sulfate 2gm IVPB 2 G/50 ML BAG IV ONE (08:14)
[2021-12-02] MEDS ORDERED: POTASSIUM CL SA 10 MEQ TAB PO ONE (08:14)
[2021-12-02] MEDS: ENOXAPARIN 30 MG/0.3 ML SQ SCH (09:08)
--- NOTE | 2021-12-02 12:09 | P.CNS ---
Date of Consult: 12/02/21 Chief Complaint: UTI, needs IV antibiotics History of Present Illness: The patient is an 86-year-old female with past medical history of CVA with left- sided weakness and dementia who presented to the emergency department under the guidance from her PCP for IV antibiotics. Per chart review, the patient's daughter stated that the patient had not been feeling well over the past few weeks had decreased p.o. intake, had fatigue, nausea, and foul-smelling odor. Urine sample checked in primary care's office was growing Pseudomonas with sensitivities reported to Zosyn, meropenem, and fluoroquinolones. Patient is allergic to fluoroquinolones. As such she will need treatment with IV antibiotics. Patient started on Zosyn on 12/02. CT abdomen pelvis pending. Allergies ciprofloxacin [From Cipro] Adverse Reaction (Verified 09/19/21 18:29) Rash Home Medications: Aspirin [Aspirin EC 81 MG] 81 mg PO DAILY 30 Days #30 tablet. 01/13/21 Atorvastatin Calcium [Lipitor] 40 mg PO BEDTIME 30 Days #30 tab 01/13/21 Clopidogrel Bisulfate [Plavix*] 75 mg PO DAILY 30 Days #30 tablet 01/13/21 Nystatin Powder [Mycostatin (Powder)*] 1 appl TOP DAILY PRN 21 Days #1 btl 01/13/21 Pantoprazole Sodium [Protonix] 40 mg PO BID 09/26/21 Sertraline [Zoloft*] 50 mg PO DAILY 09/26/21 Ensure Enlive 237 ml PO BID #60 can 09/29/21 Gabapentin [Neurontin] 100 mg PO BEDTIME 12/01/21 Sennosides/Docusate Sodium [Senna-S Tablet] 2 each PO DAILY 12/01/21 traMADol HCL [Ultram*] 50 mg PO DAILY PRN 12/01/21 - Past Medical/Surgical History Diabetic: No -: Eye allergy -: CVA -: GERD -: Depression -: Carotid aneurysm -: Mitral valve stenosis - Family History Mother Medical History: Hypertension, Diabetes Father Medical History: Liver disease Notes: Cirrhosis - Social History Alcohol use: Yes CD- Drugs: No Caffeine use: Yes Place of Residence: Home Review of Systems 10-point ROS is otherwise unremarkable Physical Examination Temp Pulse Resp BP Pulse Ox 97.9 F 111 H 18 169/87 H 94 12/02/21 08:00 12/02/21 08:00 12/02/21 08:00 12/02/21 08:00 12/02/21 08:00 General: In no apparent distress, Demented HEENT: Atraumatic, Normocephalic Neck: Supple, 2+ carotid pulse no bruit Respiratory: Clear to auscultation bilaterally, Normal air movement Cardiovascular: No edema, Normal pulses Gastrointestinal: Normal bowel sounds, Soft and benign Musculoskeletal: No clubbing, No swelling, No contractures Integumentary: No rashes, No breakdown, No significant lesion Laboratory Data (last 24 hrs) 12/01/21 15:19: Sodium 140, Potassium 3.5, BUN 14, Creatinine 0.55, Glucose 100, Total Bilirubin 0.4, AST 34, ALT 29, Alkaline Phosphatase 129 H 12/01/21 15:19: WBC 9.20, Hgb 9.6 L, Hct 28.6 L, Plt Count 646 H Conclusions/Impression: Antibiotics Zosyn: 12/02current UTI Urine culture obtained at PCPs office was growing Pseudomonas. Patient is allergic to fluoroquinolones Continue Zosyn. CT abdomen pelvis pending -Blood and urine cultures obtained at our facility also pending Medical management per primary team Plan of care discussed Dr. Gonzales Thank you for consultation
--- NOTE | 2021-12-02 13:16 | RAD REPORT ---
EXAM DESCRIPTION: CT - Abdomen Pelvis W/Wo Contrast - 12/02/2021 1:03 pm CLINICAL HISTORY: Abdominal pain/urinary tract infection COMPARISON: 2020 TECHNIQUE: Computed axial tomography of the abdomen and pelvis was obtained. Unenhanced and enhanced images were taken. 100 cc Isovue 300 was administered intravenously. Images were obtained in arteria l, venous and delayed phases. Coronal reconstruction was performed. Oral contrast given All CT scans are performed using dose optimization technique as appropriate and may include automated exposure control or mA/KV adjustment according to patient size. FINDINGS: A 2.5 centimeter left renal cyst. Smaller right renal cyst. No hydronephrosis. A genitouri nary calculus is not seen. Kidneys demonstrate symmetric concentration and excretion of contrast. A f illing defect within collecting system not seen. Fatty liver The spleen, pancreas and adrenals are unremarkable Diverticula stem from the colon. Minimal stranding adjacent to the descending colon consistent with a minimal diverticulitis. No adnexal mass. Mild to moderate amount of stool within the colon Mild atelectasis left lower lobe IMPRESSION: Minimal left diverticulitis
[2021-12-02] MEDS ORDERED: NYSTATIN PWDR 100000 UNIT/GM TOP PRN (20:13)
[2021-12-02] MEDS ORDERED: TRAMADOL HCL 50 MG TAB PO PRN (20:13)
[2021-12-02] MEDS: ENSURE ENLIVE 237 ML CAN PO SCH (21:00)
[2021-12-02] MEDS: ATORVASTATIN 40 MG TAB PO SCH (21:54)
[2021-12-02] MEDS: PANTOPRAZOLE 40MG TABLET PO SCH (21:55)
[2021-12-02] MEDS: GABAPENTIN 100 MG CAP PO SCH (21:55)
[2021-12-03] MEDS: PIPER TAZO 3.375 GM in NA CHLORIDE 0.9% 100 ML IV SCH ×3 (01:08→17:05)
--- NOTE | 2021-12-03 06:04 | P.PN ---
Date of Service: 12/03/21 Subjective: stable, feels better, appetite improving, more energy ROS: 10 point ROS as noted above, otherwise negative Physical exam General: Alert, Oriented x2, pleasantly confused HEENT: Sclerae nonicteric Respiratory: Clear to auscultation bilaterally, nonlabored on RA Cardiovascular: Regular rate/rhythm, trace b/l pedal edema Gastrointestinal: Soft and benign, Non-distended, No tenderness Neurological: Normal speech, Normal affect, L sided weakness Problem list UTI, Pseudomonas History of CVA, nonambulatory Dementia outpatient Urine culture grew Pseudomonas, patient allergic to p.o. options ED started zosyn, continue for now repeat urine culture pending, blood culture pending ID consulted patient does not appear septic at this time Clinically improving, blood work stable CT abdomen/pelvis without signs of pyelonephritis, reported mild diverticulitis, patient without abd pain Continue home medications VTE: lovenox Code: full - per daughter Dispo: Home, tomorrow, will complete 3 days of IV antibiotics Time Spent Managing Pts Care (In Minutes): 35
[2021-12-03 06:10] LABS: Hematocrit 26.7 % (36.0-45.0); MPV 6.6 fL (7.6-11.3); RBC Red Blood Cell Count 2.93 M/uL (3.86-4.86)
[2021-12-03 08:02] LABS: BUN Blood Urea Nitrogen 6 mg/dL (7-18); Bicarbonate 26 mmol/L (21-32); Glucose Level 97 mg/dL (74-106); Potassium 3.3 mmol/L (3.5-5.1); Sodium Level 141 mmol/L (136-145)
[2021-12-03] MEDS: ENSURE ENLIVE 237 ML CAN PO SCH ×2 (09:00→21:00)
[2021-12-03] MEDS: PANTOPRAZOLE 40MG TABLET PO SCH ×2 (09:33→21:01)
[2021-12-03] MEDS: SERTRALINE HCL 50 MG TAB PO SCH (09:33)
[2021-12-03] MEDS: ENOXAPARIN 30 MG/0.3 ML SQ SCH (09:34)
[2021-12-03] MEDS: CLOPIDOGREL 75 MG TABLET PO SCH (09:34)
[2021-12-03] MEDS: ASPIRIN EC 81 MG TAB PO SCH (09:34)
--- NOTE | 2021-12-03 11:58 | P.PN ---
Subjective Date of Service: 12/03/21 Chief Complaint: UTI, needs IV antibiotics Patient seen and examined at bedside, doing well with no acute complaints. Review of Systems 10-point ROS is otherwise unremarkable Physical Examination - Vital Signs Temperature: 97.7 F Blood Pressure: 153/76 Pulse: 94 Respirations: 16 Pulse Ox (%): 95 - Studies Laboratory Last Values WBC 9.20 K/uL (4.3-10.9) 12/01/21 15:19 RBC 3.12 M/uL (3.86-4.86) L 12/01/21 15:19 Hgb 9.6 g/dL (12.0-15.0) L 12/01/21 15:19 Hct 28.6 % (36.0-45.0) L 12/01/21 15:19 MCV 91.7 fL (80-100) 12/01/21 15:19 MCH 30.9 pg (27.0-35.0) 12/01/21 15:19 MCHC 33.7 g/dL (32.0-36.0) 12/01/21 15:19 RDW 18.2 % (12.1-15.2) H 12/01/21 15:19 Plt Count 646 K/uL (152-406) H 12/01/21 15:19 MPV 6.9 fL (7.6-11.3) L 12/01/21 15:19 Neutrophils % 47.1 % (41.7-73.7) 12/01/21 15:19 Lymphocytes % 38.9 % (15.3-44.8) 12/01/21 15:19 Monocytes % 11.3 % (3.3-12.3) 12/01/21 15:19 Eosinophils % 2.4 % (0-4.4) 12/01/21 15:19 Basophils % 0.3 % (0-1.3) 12/01/21 15:19 Absolute Neutrophils 4.3 K/uL (1.8-8.0) 12/01/21 15:19 Absolute Lymphocytes 3.6 K/uL (0.7-4.9) 12/01/21 15:19 Absolute Monocytes 1.0 K/uL (0.1-1.3) 12/01/21 15:19 Absolute Eosinophils 0.2 K/uL (0-0.5) 12/01/21 15:19 Absolute Basophils 0.0 K/uL (0-0.5) 12/01/21 15:19 Sodium 140 mmol/L (136-145) 12/01/21 15:19 Potassium 3.5 mmol/L (3.5-5.1) 12/01/21 15:19 Chloride 108 mmol/L (98-107) H 12/01/21 15:19 Carbon Dioxide 27 mmol/L (21-32) 12/01/21 15:19 BUN 14 mg/dL (7-18) 12/01/21 15:19 Creatinine 0.55 mg/dL (0.55-1.3) 12/01/21 15:19 Estimated GFR > 90 mL/min (=/>90) 12/01/21 15: Glucose 100 mg/dL (74-106) 12/01/21 15: Calcium 8.5 mg/dL (8.5-10.1) 12/01/21 15: Total Bilirubin 0.4 mg/dL (0.2-1.0) 12/01/21 15:19 AST 34 U/L (15-37) 12/01/21 15:19 ALT 29 U/L (12-78) 12/01/21 15:19 Alkaline Phosphatase 129 U/L (45-117) H 12/01/21 15:19 Serum Total Protein 6.0 g/dL (6.4-8.2) L 12/01/21 15: Albumin 2.6 g/dL (3.4-5.0) L 12/01/21 15: Globulin 3.4 g/dL (2.3-3.5) 12/01/21 15:19 Albumin/Globulin Ratio 0.8 (1.1-1.8) L 12/01/21 15:19 Urine pH 7.5 (5.0-7.0) H 12/01/21 15:49 Ur Specific Pandora 1.020 (1.005-1.030) 12/01/21 15:49 Glucose (UA)(Auto) Negative (Negative) 12/01/21 15:49 Urine Ketones Negative (Negative) 12/01/21 15:49 Urine Blood Trace-intact (Negative) H 12/01/21 15:49 Urine Nitrite Positive (Negative) H 12/01/21 15:49 Ur Leukocyte Esterase 2+ (Negative) H 12/01/21 15:49 Urine RBC <5 /HPF (NONE SEEN) 12/01/21 15:50 Urine WBC Tntc /HPF (<5) H 12/01/21 15:50 Ur Squamous Epith Cells <5 /HPF (NONE SEEN) 12/01/21 15:50 Urine Bacteria Loaded /HPF (<20) H 12/01/21 15:50 Urine Culture Reflexed Reflexed 12/01/21 15:50 Urine Total Protein 2+ (Negative) H 12/01/21 15:49 SARS-CoV-2 Rap RNA(RT-PCR) Negative (NEGATIVE) 12/01/21 16:52 Assessment And Plan - Plan Physical exam: General: In no apparent distress, Demented HEENT: Atraumatic, Normocephalic Neck: Supple, 2+ carotid pulse no bruit Respiratory: Clear to auscultation bilaterally, Normal air movement Cardiovascular: No edema, Normal pulses Gastrointestinal: Normal bowel sounds, Soft and benign Musculoskeletal: No clubbing, No swelling, No contractures Integumentary: No rashes, No breakdown, No significant lesion Conclusions/Impression: Antibiotics Zosyn: 12/02current UTI Urine culture obtained at PCPs office was growing Pseudomonas. Patient is allergic to fluoroquinolones Continue Zosyn. CT abdomen pelvis negative for any acute findings -Urine cultures obtained at our facility growing GNR, awaiting full culture report Blood culture showed no growth Medical management per primary team Plan of care discussed Dr. Gonzales Thank you for consultation
[2021-12-03] MEDS ORDERED: NA CHLORIDE 0.9% 250 ML ONE (14:39)
[2021-12-03] MEDS ORDERED: POTASSIUM 25 MEQ EFFERV TAB PO ONE (15:00)
[2021-12-03] MEDS: ATORVASTATIN 40 MG TAB PO SCH (21:01)
[2021-12-03] MEDS: GABAPENTIN 100 MG CAP PO SCH (21:01)
[2021-12-04] MEDS: PIPER TAZO 3.375 GM in NA CHLORIDE 0.9% 100 ML IV SCH ×2 (01:46→09:23)
[2021-12-04 06:13] LABS: Hematocrit 29.6 % (36.0-45.0); MPV 6.6 fL (7.6-11.3); RBC Red Blood Cell Count 3.18 M/uL (3.86-4.86)
[2021-12-04 06:32] LABS: BUN Blood Urea Nitrogen 8 mg/dL (7-18); Bicarbonate 25 mmol/L (21-32); Glucose Level 112 mg/dL (74-106); Magnesium 1.9 mg/dL (1.8-2.4); Potassium 3.7 mmol/L (3.5-5.1); Sodium Level 140 mmol/L (136-145)
[2021-12-04 08:37] VITALS: O2SAT 94
[2021-12-04] MEDS ORDERED: POTASSIUM 25 MEQ EFFERV TAB PO ONE (09:00)
[2021-12-04] MEDS ORDERED: MAGNESIUM SULFATE 1 gm IVPB 1 GM/100 ML BAG IV ONE (09:00)
[2021-12-04] MEDS: ENSURE ENLIVE 237 ML CAN PO SCH (09:00)
[2021-12-04] MEDS: CLOPIDOGREL 75 MG TABLET PO SCH (09:22)
[2021-12-04] MEDS: SERTRALINE HCL 50 MG TAB PO SCH (09:22)
[2021-12-04] MEDS: ASPIRIN EC 81 MG TAB PO SCH (09:22)
[2021-12-04] MEDS: PANTOPRAZOLE 40MG TABLET PO SCH (09:22)
[2021-12-04] MEDS: ENOXAPARIN 30 MG/0.3 ML SQ SCH (09:23)
[2021-12-04 12:43] VITALS: BP 134/61; TEMP 97.3
--- NOTE | 2021-12-04 12:51 | P.DS ---
Admission Date: 12/01/21 Discharge Date: 12/04/21 Disposition: DC HOME/HOME HEALTH CARE Discharge Condition: GOOD Reason for Admission: UTI, needs IV antibiotics Consultations: Infectious disease Procedures: Problem list UTI, Pseudomonas; Proteus Acute metabolic encephalopathy secondary to UTI History of CVA, nonambulatory Dementia Brief History of Present Illness: 86yo F, PMH: CVA with L sided weakness (bedbound), dementia Presents to ED under guidance from her PCP for IV antibiotics. Patient's daughter states that patient has not been feeling well over the last week, dec reased p.o. intake, sleeping more/more tired, some nausea, foul-smelling urine. Urine sample was checked several days ago, and recently resulted growing Pseudomonas. Sensitivities reportedly to Zosyn, meropenem, and fluoroquinolones. Patient's daughter states patient had a bad reaction to ciprofloxacin. Patient's daughter also states patient has been a little bit more confused than usual lately as well, with generalized weakness. At baseline, patient does not ambulate. In the ED, patient noted to be slightly confused, afebrile, with urine grossly positive for bacteria, leuks. Hospital Course: Patient was noted to have a UTI with acute encephalopathy. Outpatient culture noted pseudomonas. Only oral option was a fluoroquinolone, which patient is allergic to. She was treated with IV zosyn. Urine culture here grew proteus, sensitive to zosyn. ID was consulted. CT abd/pelvis did not reveal any pyelonephritis. ID recommended 3 days of IV zosyn, which patient completed. No antibiotic on discharge. She did not have any fever, no leukocytosis. Mentation improved. Patient was deemed stable for discharge home, to resume home health. Follow up with PCP within 1 week Follow up with Urology for continued workup for frequent UTIs as previously planned. Vital Signs/Physical Exam: Temp Pulse Resp BP Pulse Ox 97.3 F 84 16 134/61 96 12/04/21 12:00 12/04/21 12:00 12/04/21 12:00 12/04/21 12:00 12/04/21 12:00 Physical exam General: Alert, Oriented x2, pleasantly confused HEENT: Sclerae nonicteric Respiratory: Clear to auscultation bilaterally, nonlabored on RA Cardiovascular: Regular rate/rhythm, trace b/l pedal edema Gastrointestinal: Soft and benign, Non-distended, No tenderness Neurological: Normal speech, Normal affect, L sided weakness Laboratory Data at Discharge: WBC 7.20 K/uL (4.3-10.9) D 12/04/21 05:45 Hgb 10.0 g/dL (12.0-15.0) L 12/04/21 05:45 Hct 29.6 % (36.0-45.0) L 12/04/21 05:45 Plt Count 668 K/uL (152-406) H 12/04/21 05:45 Sodium 140 mmol/L (136-145) 12/04/21 05:45 Potassium 3.7 mmol/L (3.5-5.1) 12/04/21 05:45 BUN 8 mg/dL (7-18) 12/04/21 05:45 Creatinine 0.56 mg/dL (0.55-1.3) 12/04/21 05:45 Glucose 112 mg/dL (74-106) H 12/04/21 05:45 Magnesium 1.9 mg/dL (1.8-2.4) 12/04/21 05:45 Total Bilirubin 0.5 mg/dL (0.2-1.0) 12/02/21 05:31 AST 36 U/L (15-37) 12/02/21 05:31 ALT 26 U/L (12-78) 12/02/21 05:31 Alkaline Phosphatase 108 U/L (45-117) 12/02/21 05:31 Home Medications: Aspirin [Aspirin EC 81 MG] 81 mg PO DAILY 30 Days #30 tablet. 01/13/21 Atorvastatin Calcium [Lipitor] 40 mg PO BEDTIME 30 Days #30 tab 01/13/21 Clopidogrel Bisulfate [Plavix*] 75 mg PO DAILY 30 Days #30 tablet 01/13/21 Nystatin Powder [Mycostatin (Powder)*] 1 appl TOP DAILY PRN 21 Days #1 btl 01/13/21 Pantoprazole Sodium [Protonix] 40 mg PO BID 09/26/21 Sertraline [Zoloft*] 50 mg PO DAILY 09/26/21 Ensure Enlive 237 ml PO BID #60 can 09/29/21 Gabapentin [Neurontin*] 100 mg PO BEDTIME 12/01/21 Sennosides/Docusate Sodium [Senna-S Tablet] 2 each PO DAILY 12/01/21 traMADol HCL [Ultram*] 50 mg PO DAILY PRN 12/01/21 Physician Discharge Instructions: Patient was noted to have a UTI. Outpatient culture noted pseudomonas. Only oral option was fluoroquinolones which patient is allergic to. She was treated with IV zosyn. Urine culture here grew proteus, sensitive to zosyn. ID was consulted. CT abd/pelvis did not reveal any pyelonephritis. ID recommended 3 days of IV zosyn, which patient completed. No antibiotic on discharge. She did not have any fever, no leukocytosis. Mentation improved. Patient was deemed stable for discharge home, to resume home health. Follow up with PCP within 1 week Follow up with Urology for continued workup for frequent UTIs as previously pl anned. Diet: Regular Activity: Fall precautions Followup: Zamzam oM FNP [Primary Care Provider] - (call to schedule appointment.) Time spent managing pt's care (in minutes): 45
== END 2021-12-04 16:30 | disposition home health service (06) | DRG 689 ==
LOC: ER 14:28 → ERHOLD 17:17 → 2ND 19:39
PROVIDERS: ADMIT Hospitalist; ATTEND Hospitalist
DX: N39.0 Urinary tract infection, site not specified (principal); G93.41 Metabolic encephalopathy; I69.354 Hemiplegia and hemiparesis following cerebral infarction affecting left non-dominant side; K57.32 Diverticulitis of large intestine without perforation or abscess without bleeding; B96.5 Pseudomonas (aeruginosa) (mallei) (pseudomallei) as the cause of diseases classified elsewhere; Z74.01 Bed confinement status; F03.90 Unspecified dementia, unspecified severity, without behavioral disturbance, psychotic disturbance, mood disturbance, and anxiety; K21.9 Gastro-esophageal reflux disease without esophagitis; B96.4 Proteus (mirabilis) (morganii) as the cause of diseases classified elsewhere; L89.151 Pressure ulcer of sacral region, stage 1; Z20.822 Contact with and (suspected) exposure to COVID-19
CPT/HCPCS: 36415; 71045; 74178; 80048; 80053; 81003; 81015; 83735; 84132; 85025; 85027; 87040; 87077; 87086; 87088; 87186; 92610; 93005; 94760; 96365; 99285; J1650; J2543; J3475; J7030; J7050; Q9967; U0003

== ENCOUNTER 2021-12-07 13:51 | Inpatient (IN) | payer OTHER ==
[2021-12-07] MEDS ORDERED: NA CHLORIDE 0.9% 250 ML ONE (14:40)
[2021-12-07] MEDS ORDERED: NA CHLORIDE 0.9% 500 ML ONE (14:41)
[2021-12-07] MEDS ORDERED: PIPERACIL/TAZO 3.375 GM VIAL IV ONE (14:41)
[2021-12-07 14:51] LABS: Absolute Lymphocytes (CBC) 3.4 K/uL (0.7-4.9); Lymphocytes % 17.1 % (15.3-44.8); MPV 6.6 fL (7.6-11.3); RBC Red Blood Cell Count 2.92 M/uL (3.86-4.86)
[2021-12-07 15:01] LABS: Urine Blood 2+ (Negative); Urine Glucose Negative (Negative); Urine Protein 1+ (Negative); Urine pH 5.5 (5.0-7.0)
[2021-12-07 15:07] LABS: Protime INR 1.06
[2021-12-07 15:12] LABS: ALT/SGPT 30 U/L (12-78); AST/SGOT 41 U/L (15-37); Albumin 2.6 g/dL (3.4-5.0); Alkaline Phosphatase 111 U/L (45-117); BUN Blood Urea Nitrogen 11 mg/dL (7-18); Bicarbonate 23 mmol/L (21-32); Bilirubin Total 0.3 mg/dL (0.2-1.0); Glucose Level 89 mg/dL (74-106); Protein, Total 5.7 g/dL (6.4-8.2); Sodium Level 137 mmol/L (136-145)
[2021-12-07 15:32] LABS: Urine Bacteria LOADED /HPF (<20)
[2021-12-07 15:58] LABS: Platelet Estimate INCR; White Blood Cell Scan OK (OK)
[2021-12-07 15:59] LABS: Anisocytosis 2+; Blood Morphology Comment NOTED (NOT SEEN); Poikilocytosis 1+
--- NOTE | 2021-12-07 16:21 | RAD REPORT ---
EXAM DESCRIPTION: CTAbdomen Pelvis W Contrast - 12/07/2021 4:13 pm CLINICAL HISTORY: Abdominal pain. uti COMPARISON: Abdomen Pelvis W Contrast dated 07/09/2021 TECHNIQUE: Biphasic CT imaging of the abdomen and pelvis was performed with 100 ml non-ionic IV cont rast. All CT scans are performed using dose optimization technique as appropriate and may include automated exposure control or mA/KV adjustment according to patient size. FINDINGS: Linear opacities are present in both lung bases probably atelectasis.Small hiatal hernia. Diffuse fatty liver is present. The spleen, pancreas, adrenal glands are normal. Bilateral renal cyst s are present without hydronephrosis. Aortic atherosclerosis. No bowel obstruction, free air, free fluid or abscess. Prominent sigmoid diverticulosis is present in the left lower quadrant without diverticulitis. The appendix is normal. A narrowed bladder appears t hickened and mildly enhancing. No evidence of significant lymphadenopathy. Moderate lumbosacral degenerative changes. IMPRESSION: Enhancing urinary bladder wall suggests cystitis. Prominent sigmoid diverticulosis is present in the left lower quadrant without diverticulitis. Diffuse fatty liver.
[2021-12-07] MEDS ORDERED: CEFTRIAXONE 1000 MG/VIAL ONE (16:55)
--- NOTE | 2021-12-07 17:04 | ER ---
Nurse's Notes [facility] Name: Tamanna Harris Age: 86 yrs Sex: Female : 1935 Arrival Date: 12/07/2021 Time: 13:53 Bed 3 Private MD: Diagnosis: UTI/ Urinary tract infection, site not specified;Other specified fever;Altered mental status, unspecified Presentation: 12/07 13:53 Chief complaint: EMS states: PT recently DC and treated for UTI. pt presented with gerard fever and congestion. 500mg Tylenol was given at home and another 500mg Tylenol NURSING SERVICE ADMINISTRATOR. Coronavirus screen: Vaccine status: Patient reports receiving the 2nd dose of the covid vaccine. Ebola Screen: Patient denies travel to an Ebola-affected area in the 21 days before illness onset. Initial Sepsis Screen: Does the patient meet any 2 criteria? HR > 90 bpm. No. Patient's initial sepsis screen is negative. Does the patient have a suspected source of infection? No. Patient's initial sepsis screen is negative. Risk Assessment: Do you want to hurt yourself or someone else? Patient reports no desire to harm self or others. Onset of symptoms was December 07, 2021. 13:53 Method Of Arrival: EMS: [facility] gerard 13:53 Acuity: ROBERT 3 gerard Triage Assessment: 13:57 General: Appears in no apparent distress. Behavior is calm, cooperative. Pain: Denies gerard pain. Respiratory: Airway is patent Breath sounds are diminished bilaterally. Historical: - Allergies: 13:57 Cipro; gerard - PMHx: 13:57 CVA; depressive disorder; LEFT SIDED WEAKNESS; gerard - Immunization history:: Adult Immunizations up to date. - Social history:: Smoking status: Patient denies any tobacco usage or history of. Screenin:58 Abuse screen: Denies threats or abuse. Denies injuries from another. Nutritional gerard screening: No deficits noted. Tuberculosis screening: No symptoms or risk factors identified. Fall Risk Fall in past 12 months (25 points). Vital Signs: 13:53 BP 138 / 97; Pulse 103; Resp 18; Temp 99.4(O); Pulse Ox 95% on R/A; Weight 83.91 kg; gerard Height 5 ft. 3 in. (160.02 cm); 16:50 BP 145 / 77; Pulse 97; Resp 18; Pulse Ox 100% on R/A; gerard 17:00 BP 143 / 80; Pulse 94; Resp 18; Pulse Ox 96% on R/A; gerard 18:30 BP 129 / 63; Pulse 110; Resp 18; Pulse Ox 97% on R/A; gerard 19:00 BP 113 / 57; Pulse 82; Resp 16; Temp 100.6(O); Pulse Ox 95% on R/A; st1 13:53 Body Mass Index 32.77 (83.91 kg, 160.02 cm) gerard ED Course: 13:53 Patient arrived in ED. ss 13:54 Francois Damian MD is Attending Physician. kdr 13:57 Triage completed. gerard 13:57 Arm band placed on. gerard 13:58 Patient has correct armband on for positive identification. Bed in low position. gerard 13:58 No provider procedures requiring assistance completed. gerard 16:12 CT Abd/Pelvis - IV Contrast Only In Process Unspecified. EDMS 17:03 Jesús Sainz MD is Hospitalizing Provider. kdr 21:35 Ashley Psot RN is Primary Nurse. st1 03 07:24 Patient admitted, IV remains in place. [email or web address] Administered Medications: 12/07 15:05 Drug: Zosyn (piperacillin-tazobactam) 3.375 grams Route: IVPB; Infused Over: 60 mins; gerard Site: right wrist; 12/08 20:31 Follow up: Response: No adverse reaction; IV Status: Completed infusion; IV Intake: as6 100ml 12/07 15:05 Drug: NS 0.9% 500 ml Route: IV; Rate: bolus; Site: right wrist; gerard 16:50 Follow up: IV Status: Completed infusion gerard 16:56 Drug: Rocephin - (cefTRIAXone) 1 grams Route: IVPB; Infused Over: 30 mins; Site: right gerard wrist; 12/08 20:30 Follow up: Response: No adverse reaction; IV Status: Completed infusion; IV Intake: [id number] Intake: 20:30 IV: 50ml; Total: 50ml. as6 20:31 IV: 100ml; Total: 150ml. as6 Outcome: 12/07 17:04 Decision to Hospitalize by Provider. kdr 12/08 07:24 Admitted to ER Hold. Please see [employer] for further documentation. jg9 Condition: stable 22:05 Patient left the ED. as6 Signatures: Dispatcher [employer] EDMS Francois Damian MD MD [facility] Catrachita Resendez RN RN ss Paras Rangel RN RN as6 Linsey Rosa RN RN jg9 Miroslava-Fariha Maldonado RN Ashley Teixeira RN RN st1
--- NOTE | 2021-12-07 17:04 | EDPHYS ---
Physician Documentation [facility] Name: Tamanna Harris Age: 86 yrs Sex: Female : 1935 Arrival Date: 12/07/2021 Time: 13:53 Bed 3 Private MD: ED Physician Francois Damian HPI: 12/07 19:02 This 86 yrs old Female presents to ER via EMS with complaints of Fever. kdr 19:02 Was recently discharged from this hospital for a UTI. According to the discharge kdr paperwork, the patient had a complicated UTI course that required IV antibiotics due to king resistance by the cultured bacteria. Patient had been on 3 days of Zosyn and then discharged without antibiotics. Today the patient developed a fever at home and was given 500 mg of Tylenol for a 101.0 fever. Subsequently the patient had another 500 mg of Tylenol prior to arrival. Patient feels as if she has pain with urination otherwise is awake alert and appropriate. She is nontoxic-appearing though she appears very disheveled. Onset: The symptoms/episode began/occurred suddenly, just prior to arrival, today. Severity of symptoms: At their worst the symptoms were mild moderate just prior to arrival, in the emergency department the symptoms are unchanged. The patient has not experienced similar symptoms in the past. The patient has been recently seen at the [facility] Emergency Department, The patient has been recently been admitted at [facility], by Dr. Morrison. Historical: - Allergies: 13:57 Cipro; gerard - PMHx: 13:57 CVA; depressive disorder; LEFT SIDED WEAKNESS; gerard - Immunization history:: Adult Immunizations up to date. - Social history:: Smoking status: Patient denies any tobacco usage or history of. ROS: 19:02 Constitutional: Negative for chills, and weight loss, Eyes: Negative for injury, pain, kdr redness, and discharge. 19:02 Neck: Negative for injury, pain, and swelling, Cardiovascular: Negative for chest pain, palpitations, and edema, Respiratory: Negative for shortness of breath, cough, wheezing, and pleuritic chest pain, Abdomen/GI: Negative for abdominal pain, nausea, vomiting, diarrhea, and constipation, Back: Negative for injury and pain, MS/Extremity: Negative for injury and deformity, Skin: Negative for injury, rash, and discoloration, Psych: Negative for depression, anxiety, suicide ideation, homicidal ideation, and hallucinations, Allergy/Immunology: Negative for hives, rash, and allergies, Endocrine: Negative for neck swelling, polydipsia, polyuria, polyphagia, and marked weight changes, Hematologic/Lymphatic: Negative for swollen nodes, abnormal bleeding, and unusual bruising. 19:02 Constitutional: Positive for fatigue, fever, Negative for body aches, chills, poor PO intake, weight loss. 19:02 : Positive for urinary symptoms, burning with urination, difficulty urinating, Negative for vaginal discharge. 19:02 Neuro: Positive for Mild confusion. Exam: 19:02 Constitutional: This is a well developed, well nourished patient who is awake, alert, kdr and in mild distress. Head/Face: Normocephalic, atraumatic. Eyes: Pupils equal round and reactive to light, extra-ocular motions intact. Lids and lashes normal. Conjunctiva and sclera are non-icteric and not injected. Cornea within normal limits. Periorbital areas with no swelling, redness, or edema. Neck: Trachea midline, no thyromegaly or masses palpated, and no cervical lymphadenopathy. Supple, full range of motion without nuchal rigidity, or vertebral point tenderness. No Meningismus. Chest/axilla: Normal chest wall appearance and motion. Nontender with no deformity. No lesions are appreciated. Cardiovascular: Regular rate and rhythm with a normal S1 and S2. No gallops, murmurs, or rubs. Normal PMI, no JVD. No pulse deficits. Respiratory: Lungs have equal breath sounds bilaterally, clear to auscultation and percussion. No rales, rhonchi or wheezes noted. No increased work of breathing, no retractions or nasal flaring. Abdomen/GI: Soft, non-tender, with normal bowel sounds. No distension or tympany. No guarding or rebound. No evidence of tenderness throughout. Back: No spinal tenderness. No costovertebral tenderness. Full range of motion. Skin: Warm, dry with normal turgor. Normal color with no rashes, no lesions, and no evidence of cellulitis. MS/ Extremity: Pulses equal, no cyanosis. Neurovascular intact. Full, normal range of motion. Neuro: Awake and alert, GCS 15, oriented to person, place, time, and situation. Cranial nerves II-XII grossly intact. Motor strength 5/5 in all extremities. Sensory grossly intact. Psych: Awake, alert, with orientation to person, place . Behavior, mood, and affect are within normal limits for patient. Vital Signs: 13:53 BP 138 / 97; Pulse 103; Resp 18; Temp 99.4(O); Pulse Ox 95% on R/A; Weight 83.91 kg; gerard Height 5 ft. 3 in. (160.02 cm); 16:50 BP 145 / 77; Pulse 97; Resp 18; Pulse Ox 100% on R/A; gerard 17:00 BP 143 / 80; Pulse 94; Resp 18; Pulse Ox 96% on R/A; gerard 18:30 BP 129 / 63; Pulse 110; Resp 18; Pulse Ox 97% on R/A; gerard 19:00 BP 113 / 57; Pulse 82; Resp 16; Temp 100.6(O); Pulse Ox 95% on R/A; st1 13:53 Body Mass Index 32.77 (83.91 kg, 160.02 cm) gerard MDM: 17:04 Patient medically screened. kdr 19:02 Data reviewed: vital signs, nurses notes, lab test result(s), radiologic studies. kdr Counseling: I had a detailed discussion with the patient and/or guardian regarding: the historical points, exam findings, and any diagnostic results supporting the discharge/admit diagnosis, lab results, radiology results, the need for further work-up and treatment in the hospital. 12/07 14:25 Order name: Blood Culture Adult (2) kdr 12/07 14:25 Order name: CBC with Diff; Complete Time: 16:22 kdr 12/07 14:25 Order name: CMP; Complete Time: 16:22 kdr 12/07 14:25 Order name: Lactate; Complete Time: 16: kdr 12/07 14:25 Order name: Protime (+inr); Complete Time: 16:22 kdr 12/07 14:25 Order name: Ptt, Activated; Complete Time: 16:22 kdr 12/07 14:25 Order name: Urine Culture kdr 12/07 14:25 Order name: Urine Microscopic Only; Complete Time: 16:22 kdr 12/07 15:01 Order name: Urine Dipstick-Ancillary; Complete Time: 16: EDMS 12/07 15:58 Order name: CBC Smear Scan; Complete Time: 16:22 EDMS 12/07 17:38 Order name: COVID-19 SARS RT PCR (Document "Date of Onset" if Symptomatic); Complete bd Time: 19:06 12/07 17:53 Order name: CBC with Automated Diff EDMS 12/07 17:53 Order name: CBC with Automated Diff EDMN 12/07 17:53 Order name: Comprehensive Metabolic Panel [facility] 12/07 14:25 Order name: Accucheck; Complete Time: 15:05 kdr 12/07 14:25 Order name: Cardiac monitoring; Complete Time: 14:34 kdr 12/07 14:25 Order name: EKG - Nurse/Tech; Complete Time: 14:34 kdr 12/07 14:25 Order name: IV Saline Lock - Large Bore; Complete Time: 14:34 kdr 12/07 14:56 Order name: CT Abd/Pelvis - IV Contrast Only; Complete Time: 16:22 kdr 12/07 17:53 Order name: Heart Healthy EDMN 12/07 17:53 Order name: Comprehensive Metabolic Panel [facility] 12/08 06:06 Order name: Gram Stain--Aerobic Bottle EDMN 12/08 06:07 Order name: Gram Stain--Aerobic Bottle [facility] 12/08 12:06 Order name: Gram Stain--Anaerobic Bottle [facility] 12/08 12:38 Order name: Gram Stain--Anaerobic Bottle [facility] 12/08 20:59 Order name: Phosphorus EDMN 12/08 20:59 Order name: Magnesium [facility] 12/07 14:25 Order name: Labs collected and sent; Complete Time: 15:05 kdr 12/07 14:25 Order name: O2 Per Protocol; Complete Time: 15:05 kdr 12/07 14:25 Order name: O2 Sat Monitoring; Complete Time: 15:05 kdr Administered Medications: 15:05 Drug: Zosyn (piperacillin-tazobactam) 3.375 grams Route: IVPB; Infused Over: 60 mins; gerard Site: right wrist; 12/08 20:31 Follow up: Response: No adverse reaction; IV Status: Completed infusion; IV Intake: as6 100ml 12/07 15:05 Drug: NS 0.9% 500 ml Route: IV; Rate: bolus; Site: right wrist; gerard 16:50 Follow up: IV Status: Completed infusion gerard 16:56 Drug: Rocephin - (cefTRIAXone) 1 grams Route: IVPB; Infused Over: 30 mins; Site: right gerard wrist; 12/08 20:30 Follow up: Response: No adverse reaction; IV Status: Completed infusion; IV Intake: [id number] Disposition Summary: 12/07/21 17:04 Hospitalization Ordered Hospitalization Status: Inpatient Admission kdr Provider: Jesús Sainz Condition: Fair kdr Problem: an acute exacerbation kdr Symptoms: have improved kdr Bed/Room Type: Standard kdr Location: Intensive Care Unit(12/08/21 19:48) Room Assignment: 3-(12/08/21 19:48) cg Diagnosis - UTI/ Urinary tract infection, site not specified kdr - Other specified fever kdr - Altered mental status, unspecified kdr Forms: - Medication Reconciliation Form kdr - SBAR form kdr Signatures: Dispatcher [employer] EDMS Francois Damian MD MD [facility] Loraine Benito RN RN Fariha Sinha RN RN Paras Rangel RN as6 Corrections: (The following items were deleted from the chart) 12/07 23:01 17:04 Telemetry/MedSurg (Inpatient) kdr 23:01 17:04 kdr 12/08 19:48 12/07 23:01 [facility] ER HOLD cg 12/08 19:48 12/07 23:01 ERHOLD- [facility]
[2021-12-07] MEDS ORDERED: ALBUTEROL 2.5 MG/3 ML NEB SOL NEB PRN (17:49)
[2021-12-07] MEDS ORDERED: MORPHINE 2 MG/ML SYR IV PRN (17:49)
--- NOTE | 2021-12-07 17:49 | P.HP ---
Certification for Inpatient With expected LOS: >2 Midnights Patient will require the following post-hospital care: None Practitioner: I am a practitioner with admitting privileges, knowledge of patient current condition, hospital course, and medical plan of care. Services: Services provided to patient in accordance with Admission requirements found in Title 42 Section 412.3 of the Code of Federal Regulations Patient History Date of Service: 12/07/21 Reason for admission: Confusion History of Present Illness: 86-year-old female with history of CVA, bedbound, dementia, hypertension, recent admission for UTI with urine culture growing Proteus as well as Klebsiella, patient was not treated with 3 days of Zosyn and discharged home per ID recommendation; daughter brought patient in because she noted patient has fever this a.m. to 101 and was given Tylenol. Patient has been relatively more confused over last the last 3 days. No nausea or vomiting. Patient seen now she still confused. Urinalysis shows gross evidence of persistent UTI with leukocytosis and large leukocyte esterase and nitrite. CT of the abdomen shows thickening of the bladder consistent with cystitis. Patient is being admitted for poorly treated UTI with encephalopathy. She is a poor historian at bedside Allergies ciprofloxacin [From Cipro] Adverse Reaction (Verified 09/19/21 18:29) Rash Home Medications: Aspirin [Aspirin EC 81 MG] 81 mg PO DAILY 30 Days #30 tablet. 01/13/21 Atorvastatin Calcium [Lipitor] 40 mg PO BEDTIME 30 Days #30 tab 01/13/21 Clopidogrel Bisulfate [Plavix*] 75 mg PO DAILY 30 Days #30 tablet 01/13/21 Nystatin Powder [Mycostatin (Powder)*] 1 appl TOP DAILY PRN 21 Days #1 btl 01/13/21 Pantoprazole Sodium [Protonix] 40 mg PO BID 09/26/21 Sertraline [Zoloft*] 50 mg PO DAILY 09/26/21 Ensure Enlive 237 ml PO BID #60 can 09/29/21 Gabapentin [Neurontin*] 100 mg PO BEDTIME 12/01/21 Sennosides/Docusate Sodium [Senna-S Tablet] 2 each PO DAILY 12/01/21 traMADol HCL [Ultram*] 50 mg PO DAILY PRN 12/01/21 - Past Medical/Surgical History Diabetic: No -: Eye allergy -: CVA -: GERD -: Depression -: Carotid aneurysm -: Mitral valve stenosis - Family History Mother -: Hypertension, Diabetes Father -: Liver disease Notes: Cirrhosis - Social History Smoking Status: Never smoker Smoking therapy provided: No Patient receptive to therapy: No Alcohol use: Yes CD- Drugs: No Caffeine use: Yes Place of Residence: Home Review of Systems is unable to be obtained Physical Examination - Physical Exam General: Alert, Oriented x3, Confused HEENT: Atraumatic, PERRLA Neck: Supple, 2+ carotid pulse no bruit Respiratory: Clear to auscultation bilaterally, Diminished Cardiovascular: Normal pulses, Regular rate/rhythm, Normal S1 S2 Gastrointestinal: Normal bowel sounds, Soft and benign, Non-distended Musculoskeletal: No clubbing, No swelling Integumentary: No rashes, No breakdown Neurological: Normal speech, Abnormal strength, Abnormal tone (left hemiparesis ) - Studies Laboratory Data (last 24 hrs) 12/07/21 14:40: PT 11.7, INR 1.06, APTT 34.8 12/07/21 14:40: Sodium 137, Potassium 4.0, BUN 11, Creatinine 0.46 L, Glucose 89, Total Bilirubin 0.3, AST 41 H, ALT 30, Alkaline Phosphatase 111 12/07/21 14:40: WBC 20.10 H* D, Hgb 9.1 L, Hct 27.0 L, Plt Count 624 H Assessment and Plan - Plan Persistent urinary tract infection Metabolic encephalopathydue to UTI History of dementia Hypertension History of CVA with bedbound status Plan Given recent urine culture, will start patient empiric Rocephin. Obtain repeat urine culture Marked leukocytosis noted, start gentle IV fluid Follow with antibiotics use Subcutaneous heparin for DVT prophylaxis May need prolonged antibiotics durationat least 7 to 10 days course for now Advance directive patient is full code - Advance Directives Does patient have a Living Will: Yes Does patient have a Durable POA for Healthcare: No
[2021-12-07] MEDS ORDERED: MELATONIN 5 MG TABLET PO PRN (17:52)
[2021-12-07] MEDS ORDERED: ONDANSETRON 4 MG/2 ML VIAL ONE (18:57)
[2021-12-07] MEDS: ONDANSETRON 4 MG/2 ML VIAL IV PRN (19:07)
[2021-12-07] MEDS: ENOXAPARIN 40 MG/0.4 ML SQ SCH (20:00)
[2021-12-07] MEDS: CEFEPIME 1 GM in NA CHLORIDE 0.9% 100 ML IV SCH (21:00)
[2021-12-07] MEDS ORDERED: ENOXAPARIN 40 MG/0.4 ML SQ ONE (21:26)
[2021-12-07] MEDS ORDERED: NA CHLORIDE 0.9% 100 ML IV ONE (21:26)
[2021-12-07] MEDS ORDERED: CEFEPIME 1 GM/VIAL ONE (21:27)
[2021-12-07] MEDS ORDERED: PROMETHAZINE INJ 25 MG/ML AMP ONE (21:41)
[2021-12-07] MEDS: PROMETHAZINE INJ 25 MG/ML AMP IV PRN (21:56)
[2021-12-08] MEDS ORDERED: ACETAMINOPHEN 500 MG TAB ONE ×2 (03:27→12:07)
[2021-12-08] MEDS: ACETAMINOPHEN 500 MG TAB PO PRN ×3 (03:31→22:30)
[2021-12-08 04:37] LABS: Absolute Lymphocytes (CBC) 1.1 K/uL (0.7-4.9); Hematocrit 26.6 % (36.0-45.0); MPV 7.1 fL (7.6-11.3); RBC Red Blood Cell Count 2.85 M/uL (3.86-4.86)
[2021-12-08 04:55] LABS: ALT/SGPT 25 U/L (12-78); AST/SGOT 30 U/L (15-37); Albumin 2.2 g/dL (3.4-5.0); Alkaline Phosphatase 92 U/L (45-117); BUN Blood Urea Nitrogen 9 mg/dL (7-18); Bicarbonate 23 mmol/L (21-32); Bilirubin Total 0.4 mg/dL (0.2-1.0); Glucose Level 117 mg/dL (74-106); Potassium 3.1 mmol/L (3.5-5.1); Protein, Total 5.1 g/dL (6.4-8.2); Sodium Level 142 mmol/L (136-145)
[2021-12-08] MEDS ORDERED: Ringers Lactate 1,000 ML IV ONE ×3 (05:20→20:19)
[2021-12-08] MEDS ORDERED: CLOPIDOGREL 75 MG TABLET ONE (07:44)
[2021-12-08] MEDS ORDERED: ENOXAPARIN 40 MG/0.4 ML SQ ONE (07:45)
[2021-12-08] MEDS ORDERED: CEFEPIME 1 GM/VIAL ONE (07:45)
[2021-12-08] MEDS ORDERED: NA CHLORIDE 0.9% 100 ML IV ONE (07:45)
--- NOTE | 2021-12-08 08:45 | EKG ---
Test Date: 2021-12-07 Test Time: 13:49:59 Dockmaster: MYRIAM MEASUREMENT RESULTS: Intervals: Rate: 104 MO: 206 QRSD: 70 QT: 336 QTc: 441 [place]: P: 78 MO: 206 QRS: 49 T: 63 INTERPRETIVE STATEMENTS: Sinus tachycardia Nonspecific ST abnormality Abnormal ECG Compared to ECG 12/01/2021 14:53:43 ST (T wave) deviation now present Sinus rhythm no longer present Myocardial infarct finding no longer present Electronically Signed On 12-08-21 08:42:23 CDT by Scot Parker
[2021-12-08] MEDS: CLOPIDOGREL 75 MG TABLET PO SCH (09:00)
[2021-12-08] MEDS: ENOXAPARIN 40 MG/0.4 ML SQ SCH (09:00)
[2021-12-08] MEDS: CEFEPIME 1 GM in NA CHLORIDE 0.9% 100 ML IV SCH ×2 (09:00→22:24)
[2021-12-08] MEDS ORDERED: NA CHLORIDE 0.9% 1,000 ML ONE (09:36)
[2021-12-08] MEDS ORDERED: ALBUMIN HUMAN 25% 200 ML IV ONE (09:37)
[2021-12-08] MEDS ORDERED: VANCOMYCIN 1.5 GM in NA CHLORIDE 0.9% 500 ML IVPB SCH (10:00)
[2021-12-08] MEDS ORDERED: HEPARIN 500 UNIT/5 ML SYR IV ONE (10:30)
--- NOTE | 2021-12-08 13:45 | P.CNS ---
Date of Consult: 12/08/21 Reason for consultation: Patient needs urgent IV access for vasopressors Brief history: Patient is a 86-year-old female who was admitted through the emergency room with urosepsis. Patient is currently in septic shock and requires central line for administration of vasopressors. Patient is unable to give informed consent. Daughter is present in the room and the risks, benefits and alternatives were discussed with the daughter for a central line placement. She understands and agrees to the procedure. Procedure note: As patient has a contracted neck, right femoral region was prepped and draped in the usual sterile fashion. Lidocaine 1% locally infil trated. 18-gauge needle used to access the right femoral vein. Guidewire passed and Seldinger technique utilized. A triple-lumen catheter placed and secured with 3-0 silk suture. Catheter flushed with saline and packed with heparin. Sterile dressing applied. Patient tolerated the procedure in fair condition.
[2021-12-08] MEDS: NOREPINEPHRINE 4 MG in D5W 250 ML IV SCH (19:22)
--- NOTE | 2021-12-08 19:45 | P.PN ---
Subjective Date of Service: 12/08/21 Chief Complaint: Confusion Patient remains confused. She became hypotensive this morning and given 2 L normal saline followed by IV albumin. She also had fever up to 101 this morning. Physical Examination - Vital Signs Temperature: 99.8 F Blood Pressure: 86/32 Pulse: 93 Respirations: 24 Pulse Ox (%): 100 - Physical Exam General: In no apparent distress, Confused HEENT: Mucous membr. moist/pink, Sclerae nonicteric Neck: Supple, JVD not distended Respiratory: Clear to auscultation bilaterally, Normal air movement Cardiovascular: Regular rate/rhythm, Normal S1 S2, Edema (Bilateral lower extremities) Gastrointestinal: Soft and benign, Non-distended, No tenderness Musculoskeletal: No swelling, No tenderness Integumentary: No rashes, No cyanosis Neurological: Normal strength at 5/5 x4 extr, Cranial nerves 3-12 intact Lymphatics: No axilla or inguinal lymphadenopathy - Studies Microbiology Data (last 24 hrs): 12/07/21 14:40 Blood - Blood Blood Culture Gram Stain - Final 12/07/21 14:40 Blood - Blood Gram Stain - Final 12/07/21 14:25 Blood - Blood Blood Culture Gram Stain - Final 12/07/21 14:25 Blood - Blood Gram Stain - Final Assessment And Plan - Current Problems (Diagnosis) (1) Septic shock Current Visit: Yes Status: Acute (2) Acute cystitis without hematuria Current Visit: Yes Status: Acute (3) Acute metabolic encephalopathy Current Visit: Yes Status: Acute (4) Dementia Current Visit: Yes Status: Acute (5) History of CVA (cerebrovascular accident) Current Visit: No Status: Acute - Plan Add vancomycin to IV cefepime. Blood culture growing gram-positive cocci. Urine culture growing gram-negative rods. Surgery consulted, patient seen by Dr. Ervin and central line placed. Levophed as needed to maintain MAP greater than 65. PT consult after patient stabilized. Holding home oral medications until patient is able to tolerate p.o. Patient with mild leukocytosis. Monitor CBC. Monitor electrolytes and replete as needed.
[2021-12-08] MEDS: Ringers Lactate 1,000 ML IV SCH (20:00)
[2021-12-08 20:59] LABS: Magnesium 1.5 mg/dL (1.8-2.4)
[2021-12-08] MEDS: ONDANSETRON 4 MG/2 ML VIAL IV PRN (22:30)
[2021-12-09 04:58] LABS: Absolute Lymphocytes (CBC) 1.7 K/uL (0.7-4.9); Hematocrit 23.9 % (36.0-45.0); Lymphocytes % 11.4 % (15.3-44.8); MPV 6.7 fL (7.6-11.3); RBC Red Blood Cell Count 2.58 M/uL (3.86-4.86)
[2021-12-09 05:15] LABS: ALT/SGPT 20 U/L (12-78); AST/SGOT 23 U/L (15-37); Albumin 2.5 g/dL (3.4-5.0); Alkaline Phosphatase 81 U/L (45-117); BUN Blood Urea Nitrogen 8 mg/dL (7-18); Bicarbonate 23 mmol/L (21-32); Bilirubin Total 0.4 mg/dL (0.2-1.0); Glucose Level 123 mg/dL (74-106); Protein, Total 4.9 g/dL (6.4-8.2); Sodium Level 141 mmol/L (136-145)
[2021-12-09 05:16] LABS: Potassium 2.8 mmol/L (3.5-5.1)
[2021-12-09] MEDS: Ringers Lactate 1,000 ML IV SCH ×2 (05:29→16:34)
[2021-12-09] MEDS: KCL 20 MEQ/100 mL IVPB 20 MEQ/100 ML BAG IV SCH ×3 (05:30→11:27)
[2021-12-09 05:34] LABS: Magnesium 1.5 mg/dL (1.8-2.4)
[2021-12-09] MEDS ORDERED: Magnesium Sulfate 2gm IVPB 2 G/50 ML BAG IV ONE (05:43)
[2021-12-09] MEDS: NOREPINEPHRINE 4 MG in D5W 250 ML IV SCH (08:00)
[2021-12-09] MEDS: ENOXAPARIN 40 MG/0.4 ML SQ SCH (08:11)
[2021-12-09] MEDS: CEFEPIME 1 GM in NA CHLORIDE 0.9% 100 ML IV SCH (08:11)
[2021-12-09] MEDS: CLOPIDOGREL 75 MG TABLET PO SCH (08:12)
[2021-12-09] MEDS: CEFEPIME 2 GM in NA CHLORIDE 0.9% 100 ML IV SCH ×2 (11:27→20:18)
--- NOTE | 2021-12-09 11:36 | P.CNS ---
Date of Consult: 12/09/21 Chief Complaint: Confusion History of Present Illness: The patient is an 86-year-old female with a past medical history of CVA, bedbound status, dementia, hypertension who presented to the hospital secondary to fevers with T-max of 101 and confusion. Patient was recently hospitalized at this facility from 12/01-12/04 secondary to acute uncomplicated cystitis. Urine cultures grew Klebsiella and Proteus, patient was placed on IV Zosyn for [address] abdomen pelvis performed at the time did not demonstrate complicated UTI or concerns for pyelonephritis. Patient now presents with septic presentation with leukocytosis, hypotension requiring vasopressors, and fever. Blood cultures obtained on 12/07 are growing coagulase-negative staph in 4 out of 4 bottles, repeat cultures obtained on 12/09 are pending. Urine culture obtained on 12/07 growing Klebsiella. Patient Peraglie placed on vancomycin and cefepime. ROS unable to determine as patient is altered at bedside. Allergies ciprofloxacin [From Cipro] Adverse Reaction (Verified 09/19/21 18:29) Rash Home Medications: Aspirin [Aspirin EC 81 MG] 81 mg PO DAILY 30 Days #30 tablet. 01/13/21 Atorvastatin Calcium [Lipitor] 40 mg PO BEDTIME 30 Days #30 tab 01/13/21 Clopidogrel Bisulfate [Plavix*] 75 mg PO DAILY 30 Days #30 tablet 01/13/21 Nystatin Powder [Mycostatin (Powder)*] 1 appl TOP DAILY PRN 21 Days #1 btl 01/13/21 Pantoprazole Sodium [Protonix] 40 mg PO BID 09/26/21 Sertraline [Zoloft*] 50 mg PO DAILY 09/26/21 Ensure Enlive 237 ml PO BID #60 can 09/29/21 Gabapentin [Neurontin*] 100 mg PO BEDTIME 12/01/21 Sennosides/Docusate Sodium [Senna-S Tablet] 2 each PO DAILY 12/01/21 traMADol HCL [Ultram*] 50 mg PO DAILY PRN 12/01/21 - Past Medical/Surgical History Diabetic: No -: Eye allergy -: CVA -: GERD -: Depression -: Carotid aneurysm -: Mitral valve stenosis - Family History Mother Medical History: Hypertension, Diabetes Father Medical History: Liver disease Notes: Cirrhosis - Social History Alcohol use: Yes CD- Drugs: No Caffeine use: Yes Place of Residence: Home Review of Systems is unable to be obtained Physical Examination Temp Pulse Resp BP Pulse Ox 98.2 F 75 29 H 108/46 L 97 12/09/21 08:00 12/09/21 10:15 12/09/21 10:15 12/09/21 10:15 12/09/21 10:15 General: Confused HEENT: Atraumatic, Normocephalic Neck: Supple, 2+ carotid pulse no bruit Respiratory: Clear to auscultation bilaterally, Normal air movement Cardiovascular: Normal pulses, Regular rate/rhythm Gastrointestinal: Normal bowel sounds, Soft and benign Integumentary: No rashes, No breakdown, No significant lesion Conclusions/Impression: Antibiotics Vancomycin: 12/09current Cefepime: 12/09current Urosepsis secondary to cystitis Failed treatment with IV Zosyn x3 days Urine culture growing Klebsiella. Recommend continuing IV cefepime at this time. Patient will need extended course of antibiotics. Bacteremia Blood cultures obtained on 12/07 growing coagulase-negative staph in 4/4 bottles. -Repeat cultures obtained on 12/09 are pending. Recommend continuing vancomycin until susceptibility results are obtained. Patient will need antibiotic treatment for 2 weeks following negative blood culture report. Leukocytosis Related to sepsis. Downtrending. Continue to monitor. Medical management per primary team Plan of care discussed with Dr. Moses Thank you for consultation
--- NOTE | 2021-12-09 12:31 | P.PN ---
Subjective Date of Service: 12/09/21 Chief Complaint: Confusion Patient is more awake and interactive today. She remain hypertensive and on Levophed drip. She had intermittent fever yesterday, no fever since this morning. Physical Examination - Vital Signs Temperature: 98.2 F Blood Pressure: 108/46 Pulse: 75 Respirations: 29 Pulse Ox (%): 97 - Studies Microbiology Data (last 24 hrs): 12/07/21 15:00 Catheterized Urine [place] Count - Final >100,000 CFU/ML. 12/07/21 15:00 Catheterized Urine - Final Klebsiella Pneumoniae Gram Neg Devin 12/07/21 14:25 Blood - Blood Blood Culture Gram Stain - Final 12/07/21 14:25 Blood - Blood Gram Stain - Final 12/07/21 14:40 Blood - Blood Blood Culture Gram Stain - Final 12/07/21 14:40 Blood - Blood Gram Stain - Final Assessment And Plan - Current Problems (Diagnosis) (1) Septic shock Current Visit: Yes Status: Acute (2) Acute cystitis without hematuria Current Visit: Yes Status: Acute (3) Acute metabolic encephalopathy Current Visit: Yes Status: Acute (4) Dementia Current Visit: Yes Status: Acute (5) History of CVA (cerebrovascular accident) Current Visit: No Status: Acute - Plan Physical examination General: In no apparent distress, Confused HEENT: Mucous membr. moist/pink, Sclerae nonicteric Neck: Supple, JVD not distended Respiratory: Clear to auscultation bilaterally, Normal air movement Cardiovascular: Regular rate/rhythm, Normal S1 S2, Bilateral lower extremities edema Gastrointestinal: Soft and benign, Non-distended, No tenderness Musculoskeletal: No swelling. Integumentary: No rashes, No cyanosis Neurological: Normal strength at 5/5 x4 extr, Cranial nerves 3-12 intact Plan Continue IV vancomycin and IV cefepime. Blood culture growing coagulase-negative staph in both bottles. Urine culture growing Klebsiella pneumonia, as isolated 1 week ago. Surgery consulted, patient seen by Dr. Ervin and central line placed. Levophed as needed to maintain MAP greater than 65. Infectious disease consulted to assist with management. PT consult after patient stabilized. Holding home oral medications until patient is able to tolerate p.o. Patient with significant leukocytosis. Monitor CBC. Monitor electrolytes and replete as needed. Continue Plavix for history of CVA.
[2021-12-09] MEDS: VANCOMYCIN 1.5 GM in NA CHLORIDE 0.9% 500 ML IVPB SCH (12:45)
[2021-12-09 17:29] LABS: BUN Blood Urea Nitrogen 7 mg/dL (7-18); Bicarbonate 23 mmol/L (21-32); Glucose Level 98 mg/dL (74-106); Potassium 3.5 mmol/L (3.5-5.1); Sodium Level 141 mmol/L (136-145)
[2021-12-09] MEDS ORDERED: KCL 20 MEQ/100 mL IVPB 20 MEQ/100 ML BAG IV SCH (20:00)
[2021-12-09] MEDS ORDERED: POTASSIUM 25 MEQ EFFERV TAB PO ONE (20:00)
[2021-12-10] MEDS: Ringers Lactate 1,000 ML IV SCH ×2 (04:56→12:02)
[2021-12-10 05:23] LABS: Absolute Lymphocytes (CBC) 1.5 K/uL (0.7-4.9); Hematocrit 23.4 % (36.0-45.0); Lymphocytes % 17.1 % (15.3-44.8); MPV 7.1 fL (7.6-11.3); RBC Red Blood Cell Count 2.51 M/uL (3.86-4.86)
[2021-12-10 05:27] LABS: ALT/SGPT 21 U/L (12-78); AST/SGOT 24 U/L (15-37); Albumin 2.4 g/dL (3.4-5.0); Alkaline Phosphatase 81 U/L (45-117); BUN Blood Urea Nitrogen 8 mg/dL (7-18); Bicarbonate 24 mmol/L (21-32); Bilirubin Total 0.5 mg/dL (0.2-1.0); Glucose Level 79 mg/dL (74-106); Magnesium 1.8 mg/dL (1.8-2.4); Potassium 3.4 mmol/L (3.5-5.1); Protein, Total 4.8 g/dL (6.4-8.2); Sodium Level 142 mmol/L (136-145)
[2021-12-10] MEDS ORDERED: MAGNESIUM SULFATE 1 gm IVPB 1 GM/100 ML BAG IV ONE (05:55)
[2021-12-10] MEDS: KCL 20 MEQ/100 mL IVPB 20 MEQ/100 ML BAG IV SCH ×2 (06:09→08:25)
[2021-12-10] MEDS: CLOPIDOGREL 75 MG TABLET PO SCH (08:25)
[2021-12-10] MEDS: ENOXAPARIN 40 MG/0.4 ML SQ SCH (08:25)
[2021-12-10] MEDS: CEFEPIME 2 GM in NA CHLORIDE 0.9% 100 ML IV SCH ×2 (08:26→20:17)
[2021-12-10] MEDS: VANCOMYCIN 1.5 GM in NA CHLORIDE 0.9% 500 ML IVPB SCH (12:02)
--- NOTE | 2021-12-10 12:17 | P.PN ---
Subjective Date of Service: 12/10/21 Chief Complaint: Confusion Patient is awake and communicating meaningfully. Off Levophed drip last night. Blood pressure has been stable since then. No fever over the past 24 hours. Oral intake has been poor. Physical Examination - Vital Signs Temperature: 98.4 F Blood Pressure: 143/69 Pulse: 81 Respirations: 10 Pulse Ox (%): 96 - Physical Exam General: In no apparent distress, Other (Awake) - Studies Microbiology Data (last 24 hrs): 12/07/21 14:25 Blood - Blood Aerobic Blood Culture - Final Staph Epidermidis 12/07/21 14:25 Blood - Blood Blood Culture Gram Stain - Final 12/07/21 14:25 Blood - Blood Anaerobic Blood Culture - Final Staph Epidermidis 12/07/21 14:25 Blood - Blood Gram Stain - Final 12/07/21 15:00 Catheterized Urine [place] Count - Final >100,000 CFU/ML. 12/07/21 15:00 Catheterized Urine - Final Klebsiella Pneumoniae Gram Neg Devin 12/07/21 14:40 Blood - Blood Blood Culture Gram Stain - Final 12/07/21 14:40 Blood - Blood Gram Stain - Final Assessment And Plan - Current Problems (Diagnosis) (1) Septic shock Current Visit: Yes Status: Acute (2) Acute cystitis without hematuria Current Visit: Yes Status: Acute (3) Acute metabolic encephalopathy Current Visit: Yes Status: Acute (4) Dementia Current Visit: Yes Status: Acute (5) History of CVA (cerebrovascular accident) Current Visit: No Status: Acute - Plan Physical examination General: In no apparent distress, awake HEENT: Mucous membr. moist/pink, Sclerae nonicteric Neck: Supple, JVD not distended Respiratory: Clear to auscultation bilaterally, Normal air movement Cardiovascular: Regular rate/rhythm, Normal S1 S2, Bilateral lower extremities edema Gastrointestinal: Soft and benign, Non-distended, No tenderness Musculoskeletal: No swelling. Integumentary: No rashes, No cyanosis Neurological: Normal strength at 5/5 x4 extr, Cranial nerves 3-12 intact Plan Continue IV vancomycin and IV cefepime. Blood culture growing staph epidermidis in both bottles. Repeat blood culture yielded no growth. Urine culture growing Klebsiella pneumonia, as isolated 1 week ago. Surgery consulted, patient seen by Dr. Ervin and central line placed. Levophed weaned off. Infectious disease is assisting with management. PT consult. Resume home medications. Leukocytosis resolved. Continue Plavix for history of CVA. Oral feeding as tolerated.
[2021-12-10] MEDS: HYDRALAZINE HCL 20 MG/ML VIAL IV PRN ×2 (14:13→22:25)
[2021-12-10] MEDS: PANTOPRAZOLE 40MG TABLET PO SCH (20:17)
[2021-12-10] MEDS: ATORVASTATIN 40 MG TAB PO SCH (20:18)
[2021-12-11] MEDS: Ringers Lactate 1,000 ML IV SCH ×4 (03:17→23:29)
[2021-12-11 05:53] LABS: Absolute Lymphocytes (CBC) 1.8 K/uL (0.7-4.9); Hematocrit 21.6 % (36.0-45.0); Lymphocytes % 25.9 % (15.3-44.8); MPV 7.3 fL (7.6-11.3); RBC Red Blood Cell Count 2.34 M/uL (3.86-4.86)
[2021-12-11 06:07] LABS: BUN Blood Urea Nitrogen 6 mg/dL (7-18); Bicarbonate 25 mmol/L (21-32); Glucose Level 83 mg/dL (74-106); Sodium Level 139 mmol/L (136-145)
[2021-12-11] MEDS ORDERED: INFLUENZA VACCINE (for 6+ mo) 0.5 ML DOSE IMVAC ONE (08:00)
[2021-12-11] MEDS: SERTRALINE HCL 50 MG TAB PO SCH (08:19)
[2021-12-11] MEDS: PANTOPRAZOLE 40MG TABLET PO SCH ×2 (08:19→21:11)
[2021-12-11] MEDS: CLOPIDOGREL 75 MG TABLET PO SCH (08:19)
[2021-12-11] MEDS: ENOXAPARIN 40 MG/0.4 ML SQ SCH (08:19)
[2021-12-11] MEDS: CEFEPIME 2 GM in NA CHLORIDE 0.9% 100 ML IV SCH (08:19)
[2021-12-11] MEDS: KCL 20 MEQ/100 mL IVPB 20 MEQ/100 ML BAG IV SCH ×2 (08:21→11:50)
[2021-12-11] MEDS: VANCOMYCIN 1.5 GM in NA CHLORIDE 0.9% 500 ML IVPB SCH (11:50)
--- NOTE | 2021-12-11 14:18 | P.PN ---
Subjective Date of Service: 12/11/21 Chief Complaint: Confusion Patient seen and examined at bedside. Repeat blood cultures positive, additional repeat obtained today are pending. Clinically patient is improving. Review of Systems 10-point ROS is otherwise unremarkable Physical Examination - Vital Signs Temperature: 99.1 F Blood Pressure: 146/70 Pulse: 101 Respirations: 23 Pulse Ox (%): 96 - Studies Active Medications Acetaminophen (Acetaminophen 500 Mg Tab) 500 mg PO Q6H PRN PRN Reason: Pain scale 2-4 (Mild) Last Admin: 12/08/21 22:30 Dose: 500 mg Documented by: Albuterol Sulfate (Albuterol 2.5 Mg/3 Ml Neb Gabi) 2.5 mg NEB [id number] PRN PRN Reason: SHORTNESS OF BREATH Atorvastatin Calcium (Atorvastatin 40 Mg Tab) [address] [facility] Last Admin: 12/10/21 20:18 Dose: 40 mg Documented by: Clopidogrel Bisulfate (Clopidogrel 75 Mg Tablet) 75 mg PO DAILY [facility] Last Admin: 12/11/21 08:19 Dose: 75 mg Documented by: Enoxaparin Sodium (Enoxaparin 40 Mg/0.4 Ml) 40 mg SQ DAILY [facility] Last Admin: 12/11/21 08:19 Dose: 40 mg Documented by: Hydralazine HCl (Hydralazine Hcl 20 Mg/Ml Vial) 10 mg IV Q6HP PRN PRN Reason: FOR SBP>160 OR DBP>100 MMHG Last Admin: 12/10/21 22:25 Dose: 10 mg Documented by: Norepinephrine Bitartrate 4 mg (/ Dextrose) 254 mls @ 3.81 mls/hr IV TITR [facility]; Protocol Last Titration: 12/10/21 02:45 Dose: 0 mcg/min, 0 mls/hr Documented by: Lactated Ringer's (Lactated Ringers) 1,000 mls @ 100 mls/hr IV .Q10H [facility] Last Admin: 12/11/21 08:31 Dose: 1,000 mls Documented by: Vancomycin HCl 1.5 gm/ Sodium (Chloride) 500 mls @ 333.333 mls/hr IVPB Q24H [facility]; Protocol Last Admin: 12/11/21 11:50 Dose: 500 mls Documented by: Cefepime HCl 2 gm/ Sodium (Chloride) 100 mls @ 200 mls/hr IV Q12HR [facility]; Protocol Last Admin: 12/11/21 08:19 Dose: 100 mls Documented by: Melatonin (Melatonin 5 Mg Tablet) 10 mg PO BEDTIME PRN PRN PRN Reason: INSOMNIA Morphine Sulfate (Morphine 2 Mg/Ml Syr) 2 mg IV Q4H PRN PRN Reason: Pain scale 5-7 (Moderate) Ondansetron HCl (Ondansetron 4 Mg/2 Ml Vial) 4 mg IV Q8H PRN PRN Reason: NAUSEA / VOMITING Last Admin: 12/08/21 22:30 Dose: 4 mg Documented by: Pantoprazole Sodium (Pantoprazole 40mg Tablet) [address] [facility]; Protocol Last Admin: 12/11/21 08:19 Dose: 40 mg Documented by: Promethazine HCl (Promethazine Inj 25 Mg/Ml Amp) 25 mg IV Q4H PRN PRN Reason: NAUSEA / VOMITING Last Admin: 12/07/21 21:56 Dose: 25 mg Documented by: Sertraline HCl (Sertraline Hcl 50 Mg Tab) [address] [facility] Last Admin: 12/11/21 08:19 Dose: 50 mg Documented by: Sodium Chloride (Flush Normal Saline 10 Ml) [address] [facility] Last Admin: 12/11/21 08:21 Dose: 10 ml Documented by: Assessment And Plan - Plan Physical exam: General: Confused HEENT: Atraumatic, Normocephalic Neck: Supple, 2+ carotid pulse no bruit Respiratory: Clear to auscultation bilaterally, Normal air movement Cardiovascular: Normal pulses, Regular rate/rhythm Gastrointestinal: Normal bowel sounds, Soft and benign Integumentary: No rashes, No breakdown, No significant lesion Conclusions/Impression: Antibiotics rocephin: 12/11-current Vancomycin: 12/09current Cefepime: Urosepsis secondary to cystitis Failed treatment with IV Zosyn x3 days Urine culture growing Klebsiella. IV cefepime deescalated to IV Rocephin based on susceptibility report. Patient will need extended course of antibiotics. Complicated coagulase-negative staph bacteremia Blood cultures obtained on 12/07 grew staph epi in 4/4 bottles. Repeat blood cultures obtained on 12/09 still positive growing gram-positive cocci. Additional repeat on 12/11 pending. If still positive we will need to transition patient from IV vancomycin to IV daptomycin or IV Zyvox. Patient will need antibiotic treatment for 2 weeks following negative blood culture report. -Due to recurrent positive blood cultures patient needs to be evaluated for endocarditis with an echocardiogram Leukocytosis Related to sepsis. Downtrending. Continue to monitor. Medical management per primary team Plan of care discussed with Dr. Moses Thank you for consultation
--- NOTE | 2021-12-11 15:20 | P.PN ---
Subjective Date of Service: 12/11/21 Chief Complaint: Confusion Patient is awake and communicating meaningfully. Blood pressure has been stable. No fever over the past 24 hours. She has no complaint. Physical Examination - Vital Signs Temperature: 99.1 F Blood Pressure: 146/70 Pulse: 101 Respirations: 23 Pulse Ox (%): 96 Assessment And Plan - Current Problems (Diagnosis) (1) Septic shock Current Visit: Yes Status: Acute (2) Acute cystitis without hematuria Current Visit: Yes Status: Acute (3) Acute metabolic encephalopathy Current Visit: Yes Status: Acute (4) Dementia Current Visit: Yes Status: Acute (5) History of CVA (cerebrovascular accident) Current Visit: No Status: Acute - Plan Physical examination General: In no apparent distress, awake HEENT: Mucous membr., Sclerae nonicteric Neck: Supple, JVD not distended Respiratory: Clear to auscultation bilaterally, Normal air movement Cardiovascular: Regular rate/rhythm, Normal S1 S2, Bilateral lower extremities edema Gastrointestinal: Soft and benign, Non-distended, No tenderness Musculoskeletal: No swelling. Integumentary: No rashes, No cyanosis Neurological: Normal strength at 5/5 x4 extr, Cranial nerves 3-12 intact Plan Continue IV vancomycin and IV cefepime. Blood culture growing staph epidermidis in both bottles. One repeat blood culture growing gram-positive cocci Urine culture growing Klebsiella pneumonia, as isolated 1 week ago. Surgery consulted, patient seen by Dr. Ervin and central line placed. Levophed weaned off. Infectious disease is assisting with management. Obtain echocardiogram Repeat another blood culture set today. Clean the skin with povidone iodine before blood draw. Continue PT Continue other home medications. Leukocytosis resolved. Continue Plavix for history of CVA. Oral feeding as tolerated. Transfer to the medical floor.
[2021-12-11] MEDS: ATORVASTATIN 40 MG TAB PO SCH (21:11)
[2021-12-11] MEDS: ONDANSETRON 4 MG/2 ML VIAL IV PRN (21:25)
[2021-12-12 05:46] LABS: Absolute Lymphocytes (CBC) 1.9 K/uL (0.7-4.9); Hematocrit 21.8 % (36.0-45.0); Lymphocytes % 32.9 % (15.3-44.8); MPV 7.1 fL (7.6-11.3); RBC Red Blood Cell Count 2.36 M/uL (3.86-4.86)
[2021-12-12 05:52] LABS: BUN Blood Urea Nitrogen 6 mg/dL (7-18); Bicarbonate 26 mmol/L (21-32); Glucose Level 75 mg/dL (74-106); Potassium 3.2 mmol/L (3.5-5.1); Sodium Level 140 mmol/L (136-145)
[2021-12-12] MEDS: KCL 20 MEQ/100 mL IVPB 20 MEQ/100 ML BAG IV SCH ×2 (06:55→08:20)
[2021-12-12] MEDS: CEFTRIAXONE 1,000 MG in NA CHLORIDE 0.9% 50 ML IVPB SCH (08:21)
[2021-12-12] MEDS: PANTOPRAZOLE 40MG TABLET PO SCH ×2 (08:21→21:26)
[2021-12-12] MEDS: CLOPIDOGREL 75 MG TABLET PO SCH (08:22)
[2021-12-12] MEDS: SERTRALINE HCL 50 MG TAB PO SCH (08:22)
[2021-12-12] MEDS: ENOXAPARIN 40 MG/0.4 ML SQ SCH (08:22)
[2021-12-12] MEDS: Ringers Lactate 1,000 ML IV SCH ×3 (10:20→22:57)
[2021-12-12] MEDS: VANCOMYCIN 1.5 GM in NA CHLORIDE 0.9% 500 ML IVPB SCH (11:11)
--- NOTE | 2021-12-12 11:26 | P.PN ---
Subjective Date of Service: 12/12/21 Chief Complaint: Confusion Patient is awake and communicating meaningfully. Blood pressure has been stable. No fever over the last couple of days. She is eating only up to 25% of her meals. Leukocytosis resolved. Physical Examination - Vital Signs Temperature: 97.3 F Blood Pressure: 99/43 Pulse: 103 Respirations: 13 Pulse Ox (%): 92 - Studies Microbiology Data (last 24 hrs): 12/07/21 14:40 Blood - Blood Aerobic Blood Culture - Final Staph Epidermidis 12/07/21 14:40 Blood - Blood Blood Culture Gram Stain - Final 12/07/21 14:40 Blood - Blood Anaerobic Blood Culture - Final Staph Epidermidis 12/07/21 14:40 Blood - Blood Gram Stain - Final Assessment And Plan - Current Problems (Diagnosis) (1) Septic shock Current Visit: Yes Status: Acute (2) Acute cystitis without hematuria Current Visit: Yes Status: Acute (3) Acute metabolic encephalopathy Current Visit: Yes Status: Acute (4) Dementia Current Visit: Yes Status: Acute (5) History of CVA (cerebrovascular accident) Current Visit: No Status: Acute - Plan Physical examination General: In no apparent distress, awake HEENT: Sclerae nonicteric Neck: Supple, JVD not distended Respiratory: Clear to auscultation bilaterally, Normal air movement Cardiovascular: Regular rate/rhythm, Normal S1 S2, Bilateral lower extremities edema Gastrointestinal: Soft and benign, Non-distended, No tenderness Musculoskeletal: No swelling. Integumentary: No rashes, No cyanosis Neurological: Normal strength at 5/5 x4 extr. Plan Continue IV vancomycin and IV cefepime. Blood culture growing staph epidermidis in both bottles. One repeat blood culture growing staph hominis. Positive blood cultures likely skin contaminants. Repeat blood culture 12/11 is pending Urine culture growing Klebsiella pneumonia, as isolated 1 week ago. Surgery consulted, patient seen by Dr. Ervin and central line placed. Levophed weaned off. Infectious disease is assisting with management. Continue PT Continue other home medications. Leukocytosis resolved. Continue Plavix for history of CVA. Oral feeding as tolerated. Discharge planning.
[2021-12-12] MEDS: ONDANSETRON 4 MG/2 ML VIAL IV PRN (12:05)
[2021-12-12] MEDS ORDERED: POTASSIUM 25 MEQ EFFERV TAB PO ONE (21:00)
[2021-12-12] MEDS ORDERED: MAGNESIUM SULFATE 1 gm IVPB 1 GM/100 ML BAG IV ONE (21:00)
[2021-12-12] MEDS: ATORVASTATIN 40 MG TAB PO SCH (21:26)
[2021-12-13 04:05] LABS: Absolute Lymphocytes (CBC) 1.4 K/uL (0.7-4.9); Lymphocytes % 15.1 % (15.3-44.8); MPV 6.9 fL (7.6-11.3); RBC Red Blood Cell Count 2.22 M/uL (3.86-4.86)
[2021-12-13 04:23] LABS: BUN Blood Urea Nitrogen 6 mg/dL (7-18); Bicarbonate 24 mmol/L (21-32); Glucose Level 76 mg/dL (74-106); Potassium 3.4 mmol/L (3.5-5.1); Sodium Level 139 mmol/L (136-145)
[2021-12-13 04:27] LABS: Hematocrit 20.4 % (36.0-45.0)
[2021-12-13] MEDS ORDERED: POTASSIUM CL SA 10 MEQ TAB PO ONE (09:00)
[2021-12-13] MEDS: CEFTRIAXONE 1,000 MG in NA CHLORIDE 0.9% 50 ML IVPB SCH (09:14)
[2021-12-13] MEDS: CLOPIDOGREL 75 MG TABLET PO SCH (09:15)
[2021-12-13] MEDS: SERTRALINE HCL 50 MG TAB PO SCH (09:15)
[2021-12-13] MEDS: ENOXAPARIN 40 MG/0.4 ML SQ SCH (09:15)
[2021-12-13] MEDS: PANTOPRAZOLE 40MG TABLET PO SCH ×2 (09:15→21:32)
[2021-12-13] MEDS: Ringers Lactate 1,000 ML IV SCH (09:25)
[2021-12-13] MEDS: NA CHLORIDE 0.9% 250 ML IV SCH ×2 (10:36→13:35)
[2021-12-13] MEDS: VANCOMYCIN 1.5 GM in NA CHLORIDE 0.9% 500 ML IVPB SCH (11:51)
--- NOTE | 2021-12-13 12:55 | P.PN ---
Subjective Date of Service: 12/13/21 Chief Complaint: Confusion Patient is awake and communicating meaningfully. She is doing much better. She was feeding herself though not eating much. Blood pressure has been stable. Physical Examination - Vital Signs Temperature: 98.3 F Blood Pressure: 155/67 Pulse: 82 Respirations: 22 Pulse Ox (%): 97 Assessment And Plan - Current Problems (Diagnosis) (1) Septic shock Current Visit: Yes Status: Acute (2) Acute cystitis without hematuria Current Visit: Yes Status: Acute (3) Acute metabolic encephalopathy Current Visit: Yes Status: Acute (4) Dementia Current Visit: Yes Status: Acute (5) History of CVA (cerebrovascular accident) Current Visit: No Status: Acute (6) Anemia Current Visit: Yes Status: Acute - Plan Physical examination General: In no apparent distress, awake and conversant HEENT: Sclerae nonicteric Neck: Supple, JVD not distended Respiratory: Clear to auscultation bilaterally, Normal air movement Cardiovascular: Regular rate/rhythm, Normal S1 S2, Bilateral lower extremities edema improving. Gastrointestinal: Soft and benign, Non-distended, No tenderness Integumentary: No rashes, No cyanosis Neurological: No focal motor deficit Plan: Repeat blood cultures 12/11: negative Blood culture grew staph epidermidis in 2 bottles. One repeat blood culture grew staph hominis. This suggests skin contaminants. Continue IV Rocephin. Discontinue vancomycin Urine culture growing Klebsiella pneumonia, as isolated 1 week ago. Surgery consulted, patient seen by Dr. Ervin and central line placed. Levophed weaned off. Infectious disease is assisting with management. Hemoglobin dropped to 6.9. PRBC transfusion ordered. Continue PT Continue other home medications. Continue Plavix for history of CVA. Oral feeding as tolerated. Discharge planning.
[2021-12-13] MEDS: ACETAMINOPHEN 500 MG TAB PO PRN (21:32)
[2021-12-13] MEDS: ATORVASTATIN 40 MG TAB PO SCH (21:32)
[2021-12-14 05:03] VITALS: BMI 27.1
[2021-12-14 05:37] LABS: Absolute Lymphocytes (CBC) 1.4 K/uL (0.7-4.9); Hematocrit 22.7 % (36.0-45.0); Lymphocytes % 22.5 % (15.3-44.8); MPV 7.5 fL (7.6-11.3); RBC Red Blood Cell Count 2.46 M/uL (3.86-4.86)
[2021-12-14 05:45] LABS: BUN Blood Urea Nitrogen 8 mg/dL (7-18); Bicarbonate 24 mmol/L (21-32); Glucose Level 89 mg/dL (74-106); Magnesium 1.7 mg/dL (1.8-2.4); Phosphorus 2.2 mg/dL (2.5-4.9); Potassium 3.6 mmol/L (3.5-5.1); Sodium Level 139 mmol/L (136-145)
[2021-12-14 06:56] LABS: Blood Morphology Comment NOT SEEN (NOT SEEN); Platelet Estimate ADEQ; Platelets, Giant FEW
[2021-12-14] MEDS ORDERED: CEFTRIAXONE 1000 MG/VIAL ONE (08:19)
[2021-12-14] MEDS ORDERED: NA CHLORIDE 0.9% 50 ML ONE (08:23)
[2021-12-14] MEDS: SERTRALINE HCL 50 MG TAB PO SCH (08:50)
[2021-12-14] MEDS: CLOPIDOGREL 75 MG TABLET PO SCH (08:50)
[2021-12-14] MEDS: ENOXAPARIN 40 MG/0.4 ML SQ SCH (08:50)
[2021-12-14] MEDS: CEFTRIAXONE 1,000 MG in NA CHLORIDE 0.9% 50 ML IVPB SCH (08:50)
[2021-12-14] MEDS: PANTOPRAZOLE 40MG TABLET PO SCH ×2 (08:50→21:33)
[2021-12-14] MEDS ORDERED: MAGNESIUM SULFATE 1 gm IVPB 1 GM/100 ML BAG IV ONE (09:00)
[2021-12-14] MEDS ORDERED: POTASSIUM CL SA 10 MEQ TAB PO ONE (09:00)
--- NOTE | 2021-12-14 12:26 | P.PN ---
Subjective Date of Service: 12/14/21 Chief Complaint: Confusion Patient seen and examined at bedside. No acute events. Review of Systems 10-point ROS is otherwise unremarkable Physical Examination - Vital Signs Temperature: 98.6 F Blood Pressure: 160/71 Pulse: 69 Respirations: 20 Pulse Ox (%): 98 - Studies Acetaminophen (Acetaminophen 500 Mg Tab) 500 mg PO Q6H PRN PRN Reason: Pain scale 2-4 (Mild) Last Admin: 12/13/21 21:32 Dose: 500 mg Documented by: Albuterol Sulfate (Albuterol 2.5 Mg/3 Ml Neb Gabi) 2.5 mg NEB [id number] PRN PRN Reason: SHORTNESS OF BREATH Atorvastatin Calcium (Atorvastatin 40 Mg Tab) 40 mg PO BEDTIME [facility] Last Admin: 12/13/21 21:32 Dose: 40 mg Documented by: Clopidogrel Bisulfate (Clopidogrel 75 Mg Tablet) 75 mg PO DAILY [facility] Last Admin: 12/14/21 08:50 Dose: 75 mg Documented by: Enoxaparin Sodium (Enoxaparin 40 Mg/0.4 Ml) 40 mg SQ DAILY [facility] Last Admin: 12/14/21 08:50 Dose: 40 mg Documented by: Hydralazine HCl (Hydralazine Hcl 20 Mg/Ml Vial) 10 mg IV Q6HP PRN PRN Reason: FOR SBP>160 OR DBP>100 MMHG Last Admin: 12/10/21 22:25 Dose: 10 mg Documented by: Ceftriaxone Sodium 1,000 mg/ (Sodium Chloride) 50 mls @ 100 mls/hr IVPB DAILY [facility]; Protocol Last Admin: 12/14/21 08:50 Dose: 50 mls Documented by: Sodium Chloride (Sodium Chloride) 250 mls @ 0 mls/hr IV .Q0M [facility] Last Admin: 12/13/21 13:35 Dose: 250 mls Documented by: Melatonin (Melatonin 5 Mg Tablet) 10 mg PO BEDTIME PRN PRN PRN Reason: INSOMNIA Last Admin: 12/13/21 21:32 Dose: 10 mg Documented by: Ondansetron HCl (Ondansetron 4 Mg/2 Ml Vial) 4 mg IV Q8H PRN PRN Reason: NAUSEA / VOMITING Last Admin: 12/12/21 12:05 Dose: 4 mg Documented by: Pantoprazole Sodium (Pantoprazole 40mg Tablet) 40 mg PO BID [facility]; Protocol Last Admin: 12/14/21 08:50 Dose: 40 mg Documented by: Promethazine HCl (Promethazine Inj 25 Mg/Ml Amp) 25 mg IV Q4H PRN PRN Reason: NAUSEA / VOMITING Last Admin: 12/07/21 21:56 Dose: 25 mg Documented by: Sertraline HCl (Sertraline Hcl 50 Mg Tab) 50 mg PO DAILY [facility] Last Admin: 12/14/21 08:50 Dose: 50 mg Documented by: Sodium Chloride (Flush Normal Saline 10 Ml) 10 ml IV BID [facility] Last Admin: 12/14/21 08:51 Dose: 10 ml Documented by: Assessment And Plan - Plan Physical exam: General: Confused HEENT: Atraumatic, Normocephalic Neck: Supple, 2+ carotid pulse no bruit Respiratory: Clear to auscultation bilaterally, Normal air movement Cardiovascular: Normal pulses, Regular rate/rhythm Gastrointestinal: Normal bowel sounds, Soft and benign Integumentary: No rashes, No breakdown, No significant lesion Conclusions/Impression: Antibiotics rocephin: 12/11-current Vancomycin: Cefepime: Urosepsis secondary to cystitis Failed treatment with IV Zosyn x3 days Urine culture growing Klebsiella. IV cefepime deescalated to IV Rocephin based on susceptibility report. Patient will need extended course of antibiotics. Complicated coagulase-negative staph bacteremia Blood cultures obtained on 12/07 grew staph epi in 4/4 bottles. Repeat blood cultures obtained on 12/09 grew staph hominis in 4/4 bottles. Additional repeat on 12/11 show NG. Recommend restarting IV vancomycin and treating for 2 weeks from 12/11 -Due to recurrent positive blood cultures patient needs to be evaluated for endocarditis with an echocardiogram Leukocytosis Related to sepsis. Downtrending. Continue to monitor. Medical management per primary team Plan of care discussed with Dr. Moses Thank you for consultation
[2021-12-14] MEDS: PROMETHAZINE INJ 25 MG/ML AMP IV PRN (12:45)
--- NOTE | 2021-12-14 15:29 | P.PN ---
Subjective Date of Service: 12/14/21 Chief Complaint: Confusion Patient has clinically improved. Patient is eating by herself. Vitals have been stable. Physical Examination - Vital Signs Temperature: 98.6 F Blood Pressure: 160/71 Pulse: 69 Respirations: 20 Pulse Ox (%): 98 Assessment And Plan - Current Problems (Diagnosis) (1) Septic shock Current Visit: Yes Status: Acute (2) Acute cystitis without hematuria Current Visit: Yes Status: Acute (3) Acute metabolic encephalopathy Current Visit: Yes Status: Acute (4) Dementia Current Visit: Yes Status: Acute (5) History of CVA (cerebrovascular accident) Current Visit: No Status: Acute (6) Anemia Current Visit: Yes Status: Acute - Plan Physical examination General: In no apparent distress, awake and conversant HEENT: Sclerae nonicteric Neck: Supple, JVD not distended Respiratory: Clear to auscultation bilaterally, Normal air movement Cardiovascular: Regular rate/rhythm, Normal S1 S2, Bilateral lower extremities edema improving. Gastrointestinal: Soft and benign, Non-distended, No tenderness Integumentary: No rashes, No cyanosis Neurological: No focal motor deficit Plan: Repeat blood cultures 12/11: negative Blood culture grew staph epidermidis in 4 bottles. Another repeat blood culture grew staph hominis. This suggests skin contaminants. Procalcitonin elevated. ID recommend to continue treatment for bacteremia Continue IV Rocephin. We will resume vancomycin. ID will follow for recommendation. Obtain echocardiogram. Urine culture growing Klebsiella pneumonia, as isolated 1 week ago. Surgery consulted, patient seen by Dr. Ervin and Femoral central line placed. Remove femoral catheter. Discontinue [place] catheter for voiding trial. Hemoglobin dropped to 6.9. Transfused 1 unit PRBC (12/13). Continue PT. Patient is actually bedbound. Continue other home medications. Continue Plavix for history of CVA. Oral feeding as tolerated.
[2021-12-14] MEDS: VANCOMYCIN 1.25 GM in NA CHLORIDE 0.9% 250 ML IVPB SCH (17:48)
[2021-12-14] MEDS: ATORVASTATIN 40 MG TAB PO SCH (21:33)
[2021-12-14] MEDS: ENSURE ENLIVE 237 ML CAN PO SCH (21:34)
[2021-12-15 05:15] LABS: Absolute Lymphocytes (CBC) 1.5 K/uL (0.7-4.9); Hematocrit 23.6 % (36.0-45.0); Lymphocytes % 19.7 % (15.3-44.8); MPV 7.1 fL (7.6-11.3); RBC Red Blood Cell Count 2.63 M/uL (3.86-4.86)
[2021-12-15 05:28] LABS: BUN Blood Urea Nitrogen 7 mg/dL (7-18); Bicarbonate 24 mmol/L (21-32); Glucose Level 76 mg/dL (74-106); Potassium 3.4 mmol/L (3.5-5.1); Sodium Level 141 mmol/L (136-145)
--- NOTE | 2021-12-15 06:52 | P.PN ---
Date of Service: 12/15/21 Subjective: no acute events overnight. patient without any new complaints to undergo cystoscopy today ROS: 10 point ROS as noted above, otherwise negative Physical exam GEN: Alert, orientedx1, NAD HEENT: Normal conjunctiva, sclera anicteric CV: Regular rate and rhythm, b/l lower extremity edema Pulm: Nonlabored respirations on 2L NC ABD: Soft, nontender, nondistended Neuro: Normal speech, normal affect, generalized weakness cuellar in place Problem List septic shock secondary to UTI, resolved acute cystitis without hematuria acute metabolic encephalopathy secondary to UTI/Sepsis Dementia h/o CVA acute on chronic anemia blood cultures grew staph epi in 12/21, and then grew staph hominis. repeat blood cultures negative ID consulted, recommends full treatment x 14 days, today is day 5 PICC placed last night Echo ordered to r/o endocarditis Urine culture growing Klebsiella pneumonia, as isolated 1 week ago. In last month grew proteus and pseudomonas as well femoral line placed earlier in hospitalizatoin, removed now cuellar remains, for cystoscopy today. patient with recurrent UTIs Hemoglobin dropped to 6.9. Transfused 1 unit PRBC (12/13). monitor H/H, no obvious bleed Continue PT. Patient is bedbound at baseline Continue other home medications. Continue Plavix for history of CVA. Code: full Dispo: home with home health, ~2 days
[2021-12-15] MEDS ORDERED: POTASSIUM 25 MEQ EFFERV TAB PO ONE (07:34)
[2021-12-15] MEDS ORDERED: CEFTRIAXONE 1000 MG/VIAL ONE (08:36)
[2021-12-15] MEDS: ENSURE ENLIVE 237 ML CAN PO SCH ×2 (09:00→22:11)
[2021-12-15] MEDS: PANTOPRAZOLE 40MG TABLET PO SCH ×2 (09:00→19:48)
[2021-12-15] MEDS: ENOXAPARIN 40 MG/0.4 ML SQ SCH (09:00)
[2021-12-15] MEDS: SERTRALINE HCL 50 MG TAB PO SCH (09:00)
[2021-12-15] MEDS: CLOPIDOGREL 75 MG TABLET PO SCH (09:00)
[2021-12-15] MEDS: HYDRALAZINE HCL 20 MG/ML VIAL IV PRN (09:54)
[2021-12-15] MEDS: CEFTRIAXONE 1,000 MG in NA CHLORIDE 0.9% 50 ML IVPB SCH (09:54)
--- NOTE | 2021-12-15 13:03 | ECHO ---
HEIGHT: 5 ft 3 in WEIGHT: 153 lb 0 oz DATE OF STUDY: 12/15/[address]: chely orta 2-DIMENSIONAL: YES M.MODE: YES DOPPLER: YES COLOR FLOW: YES TDS: YES PORTABLE: NO DEFINITY: NO BUBBLE STUDY: NO DIAGNOSIS: BACTEREMIA R/O ENDOCARDITIS CARDIAC HISTORY: CATHERIZATION: NO SURGERY: NO PROSTHETIC VALVE: NO PACEMAKER: NO MEASUREMENTS (cm) DIASTOLIC (NORMALS) SYSTOLIC (NORMALS) IVSd 1.0 (0.6-1.2) LA Diam 3.6 (1.9-4.0) LVEF 83% LVIDd 2.9 (3.5-5.7) LVIDs 1.4 (2.0-3.5) %FS 50% LVPWd 1.1 (0.6-1.2) Ao Diam 2.5 (2.0-3.7) 2 DIMENSIONAL ASSESSMENT: RIGHT ATRIUM: NORMAL LEFT ATRIUM: NORMAL RIGHT VENTRICLE: NORMAL LEFT VENTRICLE: NORMAL TRICUSPID VALVE: NORMAL MITRAL VALVE: MITRAL ANNULAR CALCIFICATION PULMONIC VALVE: NORMAL AORTIC VALVE: STENOTIC PERICARDIAL EFFUSION: NONE AORTIC ROOT: NORMAL LEFT VENTRICULAR WALL MOTION: NORMAL. DOPPLER/COLOR FLOW: MILD AORTIC STENOSIS. 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 MILD TRICUSPID REGURGITATION. NO VEGETATION. NORMAL EJECTION FRACTION. MITRAL ANNULAR CALCIFICATION. TECHNICALLY DIFFICULT STUDY. TECHNOLOGIST: JOSEPH DAVIS
--- NOTE | 2021-12-15 13:57 | CON ---
Reason For Consultation: Complicated UTI. History Of Present Illness: Ms. Harris is an 86-year-old woman who had seen me as an outpatient wit h a history of recurrent urinary tract infections and was recommended for outpatient cystoscopic eval uation. Upper tract imaging would have been arranged, but in the interim, the patient ended up in [facility] emergency room with signs of SIRS and possible sepsis. She was thus admitted and started on IV ant imicrobials on 12/07/2021, and her clinical situation has improved over this time. Blood cultures ev entually speciated Staphylococcus hominis that was sensitive to vancomycin only on 12/09/2021. Urine culture from 12/07/2021 on admission revealed Klebsiella resistant to Bactrim, ampicillin/Unasy n. ID consultation was obtained, and they are treating all of the organisms appropriately. Since that t hortensia, she has continued with a clinical improvement such that her hospitalist, Dr. Uribe, reached out to me for inpatient consultation and evaluation given the patient's extremely limited mobility and t ransport issues associated that would prohibit or make outpatient clinic evaluation incredibly diffic ult. CT scan of the abdomen and pelvis performed on 12/07/2021 with contrast revealed the presence o f an enhancing bladder wall suggestive of cystitis. Prominent sigmoid diverticulosis is present with out diverticulitis. Review of the upper tracts revealed the presence of bilateral renal cysts withou t hydronephrosis. On 12/07/2021, her admission INR was 1.06. Subsequent laboratory analyses have demonstrated progressive improvement. On 12/14/2021, white count 6.4, platelet count 240,000, hemoglobin/hematocrit 7.7/27.7, creatinine 0. 48. Past Medical History: CVA, dementia, hypertension, hyperlipidemia, and GERD as well as mitral valve stenosis. Social History: She never smoked. Physical Examination: General: The patient is sleeping at the time of my arrival to her room and despite speaking and turn ing on the light, she did not easily arouse. I then touched her and she woke up quite easily. She was clearly confused, did not recognize where she was and asked why I was in her house. I explained to the patient that she was in the hospital and that she had gotten very sick and that I was a urologist who had been requested for consultation. I also mentioned that we had met as an outp atient in my practice. She was then awake, but somewhat somnolent and still not oriented to place or time. She was oriented to person. Pulmonary: There was no dyspnea or sign of respiratory distress. Abdomen: Soft, nontender, and nondistended. : Urethral Bella catheter was in place and draining clear yellow urine. Extremities: She had no significant lower extremity swelling or Homans sign. Assessment And Recommendations: This is an 86-year-old woman with history of cerebrovascular acciden t, dementia, hypertension, and mitral valve stenosis, on Plavix as well as aspirin, who presents with a complicated urinary tract infection with possible sepsis due to Staphylococcus and urinary tract i nfection due to Klebsiella. Given the absence of any upper tract calculus or sign of hydronephrosis or mass lesion to explain her recurrent infections, and given the patient's significant bedbound and transportation limitations, I recommended we proceed at this point as an inpatient for a cystoscopic evaluation. This may be done under local unless significant findings are discovered in which case further sedation or anesthesia may be required. It is reasonable to proceed at this time since she has been admitted for the last 8 days and has been managed with definitive antimicrobial therapy, which at this point includes vancom ycin as well as ceftriaxone to which the organisms are sensitive. While she is also on Lovenox subcu daily, we will ask that the team hold her dose for ivan ZAPIEN/SONAM Voice ID: [id number] Report ID: [id number]
--- NOTE | 2021-12-15 14:11 | P.PN ---
Subjective Date of Service: 12/15/21 Chief Complaint: Confusion Patient seen and examined at bedside. Vancomycin trough above therapeutic range at 21.1 dose adjusted via pharmacy. Review of Systems 10-point ROS is otherwise unremarkable Physical Examination - Vital Signs Temperature: 98.0 F Blood Pressure: 100/61 Pulse: 103 Respirations: 16 Pulse Ox (%): 97 - Studies Laboratory Last Values WBC 20.10 K/uL (4.3-10.9) H* D 12/07/21 14:40 RBC 2.92 M/uL (3.86-4.86) L 12/07/21 14:40 Hgb 9.1 g/dL (12.0-15.0) L 12/07/21 14:40 Hct 27.0 % (36.0-45.0) L 12/07/21 14:40 MCV 92.5 fL (80-100) 12/07/21 14:40 MCH 31.3 pg (27.0-35.0) 12/07/21 14:40 MCHC 33.8 g/dL (32.0-36.0) 12/07/21 14:40 RDW 18.4 % (12.1-15.2) H 12/07/21 14:40 Plt Count 624 K/uL (152-406) H 12/07/21 14:40 MPV 6.6 fL (7.6-11.3) L 12/07/21 14:40 Neutrophils % 73.2 % (41.7-73.7) 12/07/21 14:40 Lymphocytes % 17.1 % (15.3-44.8) 12/07/21 14:40 Monocytes % 7.6 % (3.3-12.3) 12/07/21 14:40 Eosinophils % 1.0 % (0-4.4) 12/07/21 14:40 Basophils % 1.1 % (0-1.3) 12/07/21 14:40 Absolute Neutrophils 14.7 K/uL (1.8-8.0) H 12/07/21 14:40 Absolute Lymphocytes 3.4 K/uL (0.7-4.9) 12/07/21 14:40 Absolute Monocytes 1.5 K/uL (0.1-1.3) H 12/07/21 14:40 Absolute Eosinophils 0.2 K/uL (0-0.5) 12/07/21 14:40 Absolute Basophils 0.2 K/uL (0-0.5) 12/07/21 14:40 Platelet Estimate Incr 12/07/21 14:40 Poikilocytosis 1+ 12/07/21 14:40 Anisocytosis 2+ 12/07/21 14:40 Morphology Comment Noted (NOT SEEN) 12/07/21 14:40 PT 11.7 SECONDS (9.5-12.5) 12/07/21 14:40 INR 1.06 12/07/21 14:40 APTT 34.8 SECONDS (24.3-36.9) 12/07/21 14:40 Sodium 137 mmol/L (136-145) 12/07/21 14:40 Potassium 4.0 mmol/L (3.5-5.1) 12/07/21 14:40 Chloride 107 mmol/L (98-107) 12/07/21 14:40 Carbon Dioxide 23 mmol/L (21-32) 12/07/21 14:40 BUN 11 mg/dL (7-18) 12/07/21 14:40 Creatinine 0.46 mg/dL (0.55-1.3) L 12/07/21 14:40 Estimated GFR > 90 mL/min (=/>90) 12/07/21 14:40 Glucose 89 mg/dL (74-106) 12/07/21 14:40 Lactic Acid 2.0 mmol/L (0.4-2.0) 12/07/21 14:40 Calcium 8.5 mg/dL (8.5-10.1) 12/07/21 14:40 Total Bilirubin 0.3 mg/dL (0.2-1.0) 12/07/21 14:40 AST 41 U/L (15-37) H 12/07/21 14:40 ALT 30 U/L (12-78) 12/07/21 14:40 Alkaline Phosphatase 111 U/L (45-117) 12/07/21 14:40 Serum Total Protein 5.7 g/dL (6.4-8.2) L 12/07/21 14:40 Albumin 2.6 g/dL (3.4-5.0) L 12/07/21 14:40 Globulin 3.1 g/dL (2.3-3.5) 12/07/21 14:40 Albumin/Globulin Ratio 0.8 (1.1-1.8) L 12/07/21 14:40 Urine pH 5.5 (5.0-7.0) 12/07/21 14:58 Ur Specific [place] 1.020 (1.005-1.030) 12/07/21 14:58 Glucose (UA)(Auto) Negative (Negative) 12/07/21 14:58 Urine Ketones Negative (Negative) 12/07/21 14:58 Urine Blood 2+ (Negative) H 12/07/21 14:58 Urine Nitrite Positive (Negative) H 12/07/21 14:58 Ur Leukocyte Esterase 3+ (Negative) H 12/07/21 14:58 Urine RBC 5-10 /HPF (NONE SEEN) H 12/07/21 15:00 Urine WBC Loaded /HPF (<5) H 12/07/21 15:00 Ur Squamous Epith Cells 5-10 /HPF (NONE SEEN) H 12/07/21 15:00 Urine Bacteria Loaded /HPF (<20) H 12/07/21 15:00 Urine Culture Reflexed Not needed 12/07/21 15:00 Urine Total Protein 1+ (Negative) H 12/07/21 14:58 SARS-CoV-2 Rap RNA(RT-PCR) Negative (NEGATIVE) 12/07/21 17:38 Smear Scan Ok (OK) 12/07/21 14:40 Assessment And Plan - Plan Physical exam: General: Confused HEENT: Atraumatic, Normocephalic Neck: Supple, 2+ carotid pulse no bruit Respiratory: Clear to auscultation bilaterally, Normal air movement Cardiovascular: Normal pulses, Regular rate/rhythm Gastrointestinal: Normal bowel sounds, Soft and benign Integumentary: No rashes, No breakdown, No significant lesion Conclusions/Impression: Antibiotics rocephin: 12/11-current Vancomycin: . Restart: 12/14current Cefepime: Urosepsis secondary to cystitis Failed treatment with IV Zosyn x3 days Urine culture growing Klebsiella. IV cefepime deescalated to IV Rocephin based on susceptibility report. Patient will need extended course of antibiotics. Complicated coagulase-negative staph bacteremia Blood cultures obtained on 12/07 grew staph epi in 4/4 bottles. Repeat blood cultures obtained on 12/09 grew staph hominis in 4/4 bottles. Additional repeat on 12/11 show NG. Recommend restarting IV vancomycin and treating for 2 weeks from 12/11. -Due to recurrent positive blood cultures patient needs to be evaluated for endocarditis with an echocardiogram Medical management per primary team Plan of care discussed with Dr. Moses Thank you for consultation
[2021-12-15] MEDS ORDERED: NA CHLORIDE 0.9% 500 ML ONE (16:08)
[2021-12-15] MEDS: VANCOMYCIN 1.25 GM in NA CHLORIDE 0.9% 250 ML IVPB SCH (17:00)
[2021-12-15] MEDS ORDERED: LIDOCAINE JELLY 2% 5 ML SYRINGE TOP ONE (17:31)
--- NOTE | 2021-12-15 17:51 | RAD REPORT ---
EXAM DESCRIPTION: RAD - Chest Single View - 12/15/2021 3:20 am CLINICAL HISTORY: 86 years, Female, left PICC line placement COMPARISON: Previous report performed 12/01/2021. FINDINGS: Single view of the chest was obtained portable. No prior films are available for compariso n. The lung volume is decreased. There has been interval placement of a left upper extremity PICC l ine tip of the catheter within the cavoatrial junction and good position. The heart is prominent. The re is intimal aortic arch calcifications. There are small bilateral pleural effusions with compressiv e atelectatic changes/or infiltrate. Increased interstitial pulmonary markings/early redistribution o f flow. The rest of the soft tissue and bony structures demonstrate to be unremarkable. IMPRESSION: Left upper extremity PICC line in good position. Decreased lung volume. Small bilateral pleural effusions with compressive atelectatic changes/or infi ltrates. Electronically signed by: Michael Delgado MD 12/15/2021 3:38 AM CDT Due to temporary technical issues with the PACS/Fluency reporting system, reports are being signed by the in house radiologists without review as a courtesy to insure prompt reporting. The interpreting radiologist is fully responsible for the content of the report.
[2021-12-15] MEDS ORDERED: propofoL 200 MG/20 ML VIAL IV ONE (17:52)
[2021-12-15] MEDS: ATORVASTATIN 40 MG TAB PO SCH (22:11)
[2021-12-15] MEDS: KCL 20 MEQ/100 mL IVPB 20 MEQ/100 ML BAG IV SCH ×2 (22:15→23:48)
[2021-12-15] MEDS ORDERED: NA CHLORIDE 0.9% 250 ML ONE (22:16)
[2021-12-16 05:22] LABS: Absolute Lymphocytes (CBC) 1.9 K/uL (0.7-4.9); Hematocrit 24.8 % (36.0-45.0); Lymphocytes % 25.1 % (15.3-44.8); MPV 7.5 fL (7.6-11.3); RBC Red Blood Cell Count 2.78 M/uL (3.86-4.86)
[2021-12-16 05:28] LABS: BUN Blood Urea Nitrogen 10 mg/dL (7-18); Bicarbonate 23 mmol/L (21-32); Glucose Level 90 mg/dL (74-106); Magnesium 1.8 mg/dL (1.8-2.4); Potassium 3.8 mmol/L (3.5-5.1); Sodium Level 142 mmol/L (136-145)
--- NOTE | 2021-12-16 06:56 | P.PN ---
Date of Service: 12/16/21 Subjective: patient with more hiccups / spitting up with eating, this happens intermittently and is chronic issue for patient feels food gets stuck in chest otherwise feeling ok voiding well since cuellar removed ROS: 10 point ROS as noted above, otherwise negative Physical exam GEN: Alert, orientedx1, NAD HEENT: Normal conjunctiva, sclera anicteric CV: Regular rate and rhythm, 1+ b/l lower extremity edema Pulm: Nonlabored respirations on 2L NC, clear to auscultation bilaterally, diminished at bases ABD: Soft, nontender, nondistended Neuro: Normal speech, normal affect, generalized weakness Problem List septic shock secondary to UTI, resolved acute cystitis without hematuria acute metabolic encephalopathy secondary to UTI/Sepsis Dementia h/o CVA acute on chronic anemia blood cultures grew staph epi in 12/21, and then grew staph hominis repeat blood cultures negative ID consulted, recommends full treatment x 14 days, end date 12/24 PICC placed TTE negative for vegetation Urine culture growing Klebsiella pneumonia, as isolated 1 week ago. In last month grew proteus and pseudomonas as well [facility] removed now s/p cystoscopy yesterday with Dr. Toney, voiding trial today Hemoglobin dropped to 6.9. Transfused 1 unit PRBC (12/13). monitor H/H, no obvious bleed; stable Continue PT. Patient is bedbound at baseline Continue other home medications. Continue Plavix for history of CVA. wean O2 as tolerated, patient with mild b/l pleural effusions on CXR from fluid received for septic shock Code: full Dispo: home with home health, ~1-2 days wean O2, antibiotics with home health, voiding trial today
[2021-12-16] MEDS ORDERED: CEFTRIAXONE 1000 MG/VIAL ONE (07:56)
[2021-12-16] MEDS ORDERED: NA CHLORIDE 0.9% 50 ML ONE (07:59)
[2021-12-16] MEDS: CEFTRIAXONE 1,000 MG in NA CHLORIDE 0.9% 50 ML IVPB SCH (08:33)
[2021-12-16] MEDS: ONDANSETRON 4 MG/2 ML VIAL IV PRN ×2 (08:33→15:41)
[2021-12-16] MEDS: SERTRALINE HCL 50 MG TAB PO SCH (08:34)
[2021-12-16] MEDS: ENOXAPARIN 40 MG/0.4 ML SQ SCH (08:34)
[2021-12-16] MEDS: CLOPIDOGREL 75 MG TABLET PO SCH (08:34)
[2021-12-16] MEDS: PANTOPRAZOLE 40MG TABLET PO SCH ×3 (08:34→16:30)
[2021-12-16] MEDS: ENSURE ENLIVE 237 ML CAN PO SCH ×2 (09:00→21:29)
[2021-12-16] MEDS ORDERED: MAGNESIUM SULFATE 1 gm IVPB 1 GM/100 ML BAG IV ONE (09:00)
[2021-12-16] MEDS ORDERED: POTASSIUM CL SA 10 MEQ TAB PO ONE (09:00)
--- NOTE | 2021-12-16 10:25 | OP ---
Surgeon: CATIA LYNN She is an inpatient on . Preoperative Diagnosis: Complicated urinary tract infection. History of recurrent urinary tract infection. Postoperative Diagnosis: Complicated urinary tract infection. History of recurrent urinary tract infection. Principle Procedure: Cystoscopy. Indication For Procedure: Ms. Harris was admitted with a complicated UTI and suspected Staphylococc al sepsis and has been treated with ceftriaxone and vancomycin over the last several days with improv ement in her vital signs and clearance of the infection. Because of the complicated nature of infect ion and given her dementia as well as transportation and immobility difficulties, I was requested to evaluate the patient as an inpatient if possible. Procedure Note: The patient was informed of the procedure, but her daughter provided consent, given her underlying dementia and lack of capacity to consent. The patient was not oriented to place or ti me, only to person. She was taken to the operative suite where some sedation was provided and she wa s placed in the lithotomy position, padded, and secured to the table appropriately. Her genitalia we re prepped using Hibiclens and she was draped in standard fashion. Lidocaine Urojet was applied intr aurethrally for local anesthesia. The case was begun using a 17-Croatian rigid cystoscope to traverse the urethra and into the bladder with ease. The bladder was surveyed, and while the mucosa was mildl y erythematous throughout, there were no papillary mucosal lesions, foreign bodies, or stones noted t hroughout. The ureteral orifices were orthotopic in location, and clear urine was effluxing. The bl adder was markedly trabeculated with filling, but there were no definitive cellules noted. While the patient was under sedation, and her bladder was filled with signs of stress from filling, with the s cope removed, there was no evidence of gross incontinence. There was also no significant cystocele o r rectocele noted. Of note, the patient had significant fecal soiling around her genitalia, which ma y have been the source of the urinary tract infections. It is unclear whether she is independently a ble to void. As a result, she had a 16-[place]atian urethral Bella catheter reinserted with ease and 10 cc of sterile water was placed in the balloon. The catheter was connected to a floor bag/urometer, and she was then awakened from anesthesia, transferred to a stretcher after being taken out of the litho cheko position, and then transferred to the recovery room in good condition. Complications: None. Disposition: Since her voiding status is currently in question and incomplete bladder emptying/urina ry retention may be a cause for her recurrent infections, I would recommend the catheter be removed t omorrow morning, probably at 7 a.m. and the patient be allowed to void. Since she is likely unable t o manage a volitional void into a toilet, I recommend weighing the Depends undergarments to assess he r void volume by weighing the pad prior to and after use. The difference in grams would reflect the volume of urine in cc as long as the patient did not also have a bowel movement. A post void residua l assessment should then be made using the bladder scanner, and if the patient voids less than she re tains, a 16-[place]at[place] Bella catheter should be reinserted. If, however, she voids more than she retains but she retains greater than 150 to 200 cc, she should be treated with your Uroxatral/alfuzosin 10 m g daily as long as there are no medication interactions, and a voiding trial may be performed again a fter few days of medication therapy being allowed to take effect. If she is eligible for discharge b efore another few days, can take place on the Uroxatral, then subsequent voiding trial can be managed via the Urology Clinic, if the patient can come in or perhaps in a nursing facility if she is being discharged as such. CURRY/SONAM Voice ID: [id number] Report ID: [id number]
--- NOTE | 2021-12-16 11:16 | P.PN ---
Subjective Date of Service: 12/16/21 Chief Complaint: Confusion Patient seen and examined at bedside, resting comfortably. Review of Systems 10-point ROS is otherwise unremarkable Physical Examination - Vital Signs Temperature: 97.8 F Blood Pressure: 169/74 Pulse: 102 Respirations: 18 Pulse Ox (%): 97 - Studies Laboratory Last Values WBC 20.10 K/uL (4.3-10.9) H* D 12/07/21 14:40 RBC 2.92 M/uL (3.86-4.86) L 12/07/21 14:40 Hgb 9.1 g/dL (12.0-15.0) L 12/07/21 14:40 Hct 27.0 % (36.0-45.0) L 12/07/21 14:40 MCV 92.5 fL (80-100) 12/07/21 14:40 MCH 31.3 pg (27.0-35.0) 12/07/21 14:40 MCHC 33.8 g/dL (32.0-36.0) 12/07/21 14:40 RDW 18.4 % (12.1-15.2) H 12/07/21 14:40 Plt Count 624 K/uL (152-406) H 12/07/21 14:40 MPV 6.6 fL (7.6-11.3) L 12/07/21 14:40 Neutrophils % 73.2 % (41.7-73.7) 12/07/21 14:40 Lymphocytes % 17.1 % (15.3-44.8) 12/07/21 14:40 Monocytes % 7.6 % (3.3-12.3) 12/07/21 14:40 Eosinophils % 1.0 % (0-4.4) 12/07/21 14:40 Basophils % 1.1 % (0-1.3) 12/07/21 14:40 Absolute Neutrophils 14.7 K/uL (1.8-8.0) H 12/07/21 14:40 Absolute Lymphocytes 3.4 K/uL (0.7-4.9) 12/07/21 14:40 Absolute Monocytes 1.5 K/uL (0.1-1.3) H 12/07/21 14:40 Absolute Eosinophils 0.2 K/uL (0-0.5) 12/07/21 14:40 Absolute Basophils 0.2 K/uL (0-0.5) 12/07/21 14:40 Platelet Estimate Incr 12/07/21 14:40 Poikilocytosis 1+ 12/07/21 14:40 Anisocytosis 2+ 12/07/21 14:40 Morphology Comment Noted (NOT SEEN) 12/07/21 14:40 PT 11.7 SECONDS (9.5-12.5) 12/07/21 14:40 INR 1.06 12/07/21 14:40 APTT 34.8 SECONDS (24.3-36.9) 12/07/21 14:40 Sodium 137 mmol/L (136-145) 12/07/21 14:40 Potassium 4.0 mmol/L (3.5-5.1) 12/07/21 14:40 Chloride 107 mmol/L (98-107) 12/07/21 14:40 Carbon Dioxide 23 mmol/L (21-32) 12/07/21 14:40 BUN 11 mg/dL (7-18) 12/07/21 14:40 Creatinine 0.46 mg/dL (0.55-1.3) L 12/07/21 14:40 Estimated GFR > 90 mL/min (=/>90) 12/07/21 14:40 Glucose 89 mg/dL (74-106) 12/07/21 14:40 Lactic Acid 2.0 mmol/L (0.4-2.0) 12/07/21 14:40 Calcium 8.5 mg/dL (8.5-10.1) 12/07/21 14:40 Total Bilirubin 0.3 mg/dL (0.2-1.0) 12/07/21 14:40 AST 41 U/L (15-37) H 12/07/21 14:40 ALT 30 U/L (12-78) 12/07/21 14:40 Alkaline Phosphatase 111 U/L (45-117) 12/07/21 14:40 Serum Total Protein 5.7 g/dL (6.4-8.2) L 12/07/21 14:40 Albumin 2.6 g/dL (3.4-5.0) L 12/07/21 14:40 Globulin 3.1 g/dL (2.3-3.5) 12/07/21 14:40 Albumin/Globulin Ratio 0.8 (1.1-1.8) L 12/07/21 14:40 Urine pH 5.5 (5.0-7.0) 12/07/21 14:58 Ur Specific [place] 1.020 (1.005-1.030) 12/07/21 14:58 Glucose (UA)(Auto) Negative (Negative) 12/07/21 14:58 Urine Ketones Negative (Negative) 12/07/21 14:58 Urine Blood 2+ (Negative) H 12/07/21 14:58 Urine Nitrite Positive (Negative) H 12/07/21 14:58 Ur Leukocyte Esterase 3+ (Negative) H 12/07/21 14:58 Urine RBC 5-10 /HPF (NONE SEEN) H 12/07/21 15:00 Urine WBC Loaded /HPF (<5) H 12/07/21 15:00 Ur Squamous Epith Cells 5-10 /HPF (NONE SEEN) H 12/07/21 15:00 Urine Bacteria Loaded /HPF (<20) H 12/07/21 15:00 Urine Culture Reflexed Not needed 12/07/21 15:00 Urine Total Protein 1+ (Negative) H 12/07/21 14:58 SARS-CoV-2 Rap RNA(RT-PCR) Negative (NEGATIVE) 12/07/21 17:38 Smear Scan Ok (OK) 12/07/21 14:40 Assessment And Plan - Plan Physical exam: General: Confused HEENT: Atraumatic, Normocephalic Neck: Supple, 2+ carotid pulse no bruit Respiratory: Clear to auscultation bilaterally, Normal air movement Cardiovascular: Normal pulses, Regular rate/rhythm Gastrointestinal: Normal bowel sounds, Soft and benign Integumentary: No rashes, No breakdown, No significant lesion Conclusions/Impression: Antibiotics rocephin: 12/11-current Vancomycin: . Restart: 12/14current Cefepime: Urosepsis secondary to cystitis Failed treatment with IV Zosyn x3 days Urine culture growing Klebsiella. IV cefepime deescalated to IV Rocephin based on susceptibility report. Patient will need extended course of antibiotics. -Had cystoscopy yesterday secondary to recurrent urinary tract infections. After the procedure a Bella was placed and set to be removed at this morning for a voiding trial. Complicated coagulase-negative staph bacteremia Blood cultures obtained on 12/07 grew staph epi in 4/4 bottles. Repeat blood cultures obtained on 12/09 grew staph hominis in 4/4 bottles. Additional repeat on 12/11 show NG. Recommend restarting IV vancomycin and treating for 2 weeks from 12/11. -Transthoracic echocardiogram negative for acute vegetation. Medical management per primary team Plan of care discussed with Dr. Moses Thank you for consultation
--- NOTE | 2021-12-16 15:04 | RAD REPORT ---
EXAM DESCRIPTION: RAD - Abdomen 1 View (KUB) - 12/16/2021 2:48 pm CLINICAL HISTORY: Abdomen pain. FINDINGS: The bowel gas pattern is unremarkable. Vascular calcifications are present.
[2021-12-16] MEDS: ACETAMINOPHEN 500 MG TAB PO PRN (15:42)
[2021-12-16] MEDS: VANCOMYCIN 1.25 GM in NA CHLORIDE 0.9% 250 ML IVPB SCH (17:07)
[2021-12-16] MEDS: ATORVASTATIN 40 MG TAB PO SCH (21:29)
[2021-12-17 04:50] LABS: Hematocrit 23.7 % (36.0-45.0); MPV 7.4 fL (7.6-11.3); RBC Red Blood Cell Count 2.61 M/uL (3.86-4.86)
[2021-12-17 05:03] LABS: BUN Blood Urea Nitrogen 10 mg/dL (7-18); Bicarbonate 26 mmol/L (21-32); Glucose Level 84 mg/dL (74-106); Magnesium 1.7 mg/dL (1.8-2.4); Potassium 3.3 mmol/L (3.5-5.1); Sodium Level 141 mmol/L (136-145)
[2021-12-17] MEDS ORDERED: MAGNESIUM SULFATE 1 gm IVPB 1 GM/100 ML BAG IV ONE (05:14)
[2021-12-17] MEDS: POTASSIUM 25 MEQ EFFERV TAB PO ONE ×2 (05:22→05:33)
[2021-12-17] MEDS: ONDANSETRON 4 MG/2 ML VIAL IV PRN ×2 (05:34→20:15)
[2021-12-17] MEDS: PANTOPRAZOLE 40MG TABLET PO SCH ×3 (05:34→16:22)
--- NOTE | 2021-12-17 06:45 | P.PN ---
Date of Service: 12/17/21 Subjective: continues with spitting up feels food gets hung up in chest breathing ok, on O2 ROS: 10 point ROS as noted above, otherwise negative Physical exam GEN: Alert, oriented x1, NAD HEENT: Normal conjunctiva, sclera anicteric CV: Regular rate and rhythm, 1+ b/l lower extremity edema Pulm: Nonlabored respirations on 2L NC, clear to auscultation bilaterally, diminished at bases ABD: Soft, nontender, nondistended Neuro: Normal speech, normal affect, generalized weakness Problem List esophageal stenosis, esophageal stricture septic shock secondary to UTI, resolved acute cystitis without hematuria, resolved acute metabolic encephalopathy secondary to UTI/Sepsis Dementia h/o CVA acute on chronic anemia Urine culture growing Klebsiella pneumonia, as isolated 1 week ago. In last month grew proteus and pseudomonas as well blood cultures grew staph epi in 12/21, and then grew staph hominis; repeat blood cultures negative ID consulted, recommends full treatment x 14 days, end date 12/24 PICC placed TTE negative for vegetation s/p cystoscopy on 12/[address] Toney, voiding trial without issue anemia of chronic disease, Hgb dropped to 6.9 few days ago, s/p 1u PRBC on 12/13, hgb stable/low Continue PT. Patient is bedbound at baseline Continue other home medications. Continue Plavix for history of CVA. wean O2 as tolerated, patient with mild b/l pleural effusions on CXR from fluid received for septic shock, trial of spironolactone patient with intermittent spitting up, h/o reflux, feels food stuck in chest; intermittent for several months, two episodes of severe symptoms concerned for stenosis vs stricture MBS done this morning, confirmed patient actually has both ST recommends [facility] needs GI consult. unfortunately no GI available here / supervisor inspection room. Current schedule does not show any coverage for next month transfer initiated discussed with daughter, patient with not much PO intake in the last several days, recommend dobhoff, daughter wants to hold off for right now Code: full Dispo: transfer to tertiary [facility] for GI evaluation / intervention
--- NOTE | 2021-12-17 07:47 | RAD REPORT ---
EXAM DESCRIPTION: Kylee Single View12/17/2021 7:40 am CLINICAL HISTORY: Hypoxia COMPARISON: December 15, 2021 FINDINGS: Right hemithorax is hazy probably secondary to pleural effusion and mild pulmonary opaciti es. Mild left lung opacities and cardiomegaly persist. Small left pleural effusion. PICC line in place
[2021-12-17] MEDS: ENSURE ENLIVE 237 ML CAN PO SCH ×2 (09:00→19:43)
[2021-12-17] MEDS: KCL 20 MEQ/100 mL IVPB 20 MEQ/100 ML BAG IV SCH ×2 (09:24→12:17)
[2021-12-17] MEDS: ENOXAPARIN 40 MG/0.4 ML SQ SCH (09:24)
[2021-12-17] MEDS: SERTRALINE HCL 50 MG TAB PO SCH (09:25)
[2021-12-17] MEDS: CLOPIDOGREL 75 MG TABLET PO SCH (09:25)
[2021-12-17] MEDS: CEFTRIAXONE 1,000 MG in NA CHLORIDE 0.9% 50 ML IVPB SCH (09:25)
[2021-12-17] MEDS: ACETAMINOPHEN 500 MG TAB PO PRN (09:33)
[2021-12-17] MEDS: SPIRONOLACTONE 25 MG TABLET PO SCH (12:17)
--- NOTE | 2021-12-17 12:52 | P.PN ---
Subjective Date of Service: 12/17/21 Chief Complaint: Confusion Patient seen and examined at bedside, had swallow study performed that showed narrowing/strictures of esophagus. Review of Systems 10-point ROS is otherwise unremarkable Physical Examination - Vital Signs Temperature: 97.1 F Blood Pressure: 165/73 Pulse: 89 Respirations: 20 Pulse Ox (%): 97 - Studies Laboratory Last Values WBC 20.10 K/uL (4.3-10.9) H* D 12/07/21 14:40 RBC 2.92 M/uL (3.86-4.86) L 12/07/21 14:40 Hgb 9.1 g/dL (12.0-15.0) L 12/07/21 14:40 Hct 27.0 % (36.0-45.0) L 12/07/21 14:40 MCV 92.5 fL (80-100) 12/07/21 14:40 MCH 31.3 pg (27.0-35.0) 12/07/21 14:40 MCHC 33.8 g/dL (32.0-36.0) 12/07/21 14:40 RDW 18.4 % (12.1-15.2) H 12/07/21 14:40 Plt Count 624 K/uL (152-406) H 12/07/21 14:40 MPV 6.6 fL (7.6-11.3) L 12/07/21 14:40 Neutrophils % 73.2 % (41.7-73.7) 12/07/21 14:40 Lymphocytes % 17.1 % (15.3-44.8) 12/07/21 14:40 Monocytes % 7.6 % (3.3-12.3) 12/07/21 14:40 Eosinophils % 1.0 % (0-4.4) 12/07/21 14:40 Basophils % 1.1 % (0-1.3) 12/07/21 14:40 Absolute Neutrophils 14.7 K/uL (1.8-8.0) H 12/07/21 14:40 Absolute Lymphocytes 3.4 K/uL (0.7-4.9) 12/07/21 14:40 Absolute Monocytes 1.5 K/uL (0.1-1.3) H 12/07/21 14:40 Absolute Eosinophils 0.2 K/uL (0-0.5) 12/07/21 14:40 Absolute Basophils 0.2 K/uL (0-0.5) 12/07/21 14:40 Platelet Estimate Incr 12/07/21 14:40 Poikilocytosis 1+ 12/07/21 14:40 Anisocytosis 2+ 12/07/21 14:40 Morphology Comment Noted (NOT SEEN) 12/07/21 14:40 PT 11.7 SECONDS (9.5-12.5) 12/07/21 14:40 INR 1.06 12/07/21 14:40 APTT 34.8 SECONDS (24.3-36.9) 12/07/21 14:40 Sodium 137 mmol/L (136-145) 12/07/21 14:40 Potassium 4.0 mmol/L (3.5-5.1) 12/07/21 14:40 Chloride 107 mmol/L (98-107) 12/07/21 14:40 Carbon Dioxide 23 mmol/L (21-32) 12/07/21 14:40 BUN 11 mg/dL (7-18) 12/07/21 14:40 Creatinine 0.46 mg/dL (0.55-1.3) L 12/07/21 14:40 Estimated GFR > 90 mL/min (=/>90) 12/07/21 14:40 Glucose 89 mg/dL (74-106) 12/07/21 14:40 Lactic Acid 2.0 mmol/L (0.4-2.0) 12/07/21 14:40 Calcium 8.5 mg/dL (8.5-10.1) 12/07/21 14:40 Total Bilirubin 0.3 mg/dL (0.2-1.0) 12/07/21 14:40 AST 41 U/L (15-37) H 12/07/21 14:40 ALT 30 U/L (12-78) 12/07/21 14:40 Alkaline Phosphatase 111 U/L (45-117) 12/07/21 14:40 Serum Total Protein 5.7 g/dL (6.4-8.2) L 12/07/21 14:40 Albumin 2.6 g/dL (3.4-5.0) L 12/07/21 14:40 Globulin 3.1 g/dL (2.3-3.5) 12/07/21 14:40 Albumin/Globulin Ratio 0.8 (1.1-1.8) L 12/07/21 14:40 Urine pH 5.5 (5.0-7.0) 12/07/21 14:58 Ur Specific [place] 1.020 (1.005-1.030) 12/07/21 14:58 Glucose (UA)(Auto) Negative (Negative) 12/07/21 14:58 Urine Ketones Negative (Negative) 12/07/21 14:58 Urine Blood 2+ (Negative) H 12/07/21 14:58 Urine Nitrite Positive (Negative) H 12/07/21 14:58 Ur Leukocyte Esterase 3+ (Negative) H 12/07/21 14:58 Urine RBC 5-10 /HPF (NONE SEEN) H 12/07/21 15:00 Urine WBC Loaded /HPF (<5) H 12/07/21 15:00 Ur Squamous Epith Cells 5-10 /HPF (NONE SEEN) H 12/07/21 15:00 Urine Bacteria Loaded /HPF (<20) H 12/07/21 15:00 Urine Culture Reflexed Not needed 12/07/21 15:00 Urine Total Protein 1+ (Negative) H 12/07/21 14:58 SARS-CoV-2 Rap RNA(RT-PCR) Negative (NEGATIVE) 12/07/21 17:38 Smear Scan Ok (OK) 12/07/21 14:40 Assessment And Plan - Plan Physical exam: General: Confused HEENT: Atraumatic, Normocephalic Neck: Supple, 2+ carotid pulse no bruit Respiratory: Clear to auscultation bilaterally, Normal air movement Cardiovascular: Normal pulses, Regular rate/rhythm Gastrointestinal: Normal bowel sounds, Soft and benign Integumentary: No rashes, No breakdown, No significant lesion Conclusions/Impression: Antibiotics rocephin: 12/11-current Vancomycin: . Restart: 12/14current Cefepime: Urosepsis secondary to cystitis Failed treatment with IV Zosyn x3 days Urine culture growing Klebsiella. IV cefepime deescalated to IV Rocephin based on susceptibility report. Patient will need extended course of antibiotics. -Had cystoscopy yesterday secondary to recurrent urinary tract infections. Urology team plans to try voiding trial. Complicated coagulase-negative staph bacteremia Blood cultures obtained on 12/07 grew staph epi in 4/4 bottles. Repeat blood cultures obtained on 12/09 grew staph hominis in 4/4 bottles. Additional repeat on 12/11 show NG. Recommend restarting IV vancomycin and treating for 2 weeks from 12/11. -Transthoracic echocardiogram negative for acute vegetation. Medical management per primary team Plan of care discussed with Dr. Moses Thank you for consultation
--- NOTE | 2021-12-17 13:26 | RAD REPORT ---
EXAM DESCRIPTION: RAD - Barium Swallow Modified - 12/17/2021 1:18 pm CLINICAL HISTORY: h/o gerd, swallow issues COMPARISON: None. TECHNIQUE: The patient was given liquid, semi-solid and solid forms of barium. Lateral view fluorosc opic imaging was performed in conjunction with speech pathology service. FINDINGS: Cineloop acquisitions: Fluoro time: 6:53 Laryngeal penetration not cleared with thin. Pharyngeal residue vallecular and pyriform with puree. F used cervical vertebrae,muscular protrusion from posterior pharyngeal wall at c3-c4,stricture at medi al position of esophagus,esophageal stenosis superior to stomach, ballooning of material above steno sis,mild esophageal. IMPRESSION: Modified barium swallow as summarized above and fully detailed on speech pathology repor tAlex
[2021-12-17] MEDS: VANCOMYCIN 1.25 GM in NA CHLORIDE 0.9% 250 ML IVPB SCH (16:22)
[2021-12-17] MEDS ORDERED: KCL 20 MEQ/100 mL IVPB 20 MEQ/100 ML BAG IV SCH (20:00)
[2021-12-17] MEDS: ATORVASTATIN 40 MG TAB PO SCH (20:36)
[2021-12-17] MEDS: PROMETHAZINE INJ 25 MG/ML AMP IV PRN (22:31)
[2021-12-18] MEDS: HYDRALAZINE HCL 20 MG/ML VIAL IV PRN (00:28)
[2021-12-18 05:22] LABS: Hematocrit 24.8 % (36.0-45.0); MPV 8.1 fL (7.6-11.3); RBC Red Blood Cell Count 2.73 M/uL (3.86-4.86)
[2021-12-18 05:54] LABS: Albumin 2.4 g/dL (3.4-5.0); Bilirubin Total 0.6 mg/dL (0.2-1.0); Magnesium 1.9 mg/dL (1.8-2.4); Potassium 3.7 mmol/L (3.5-5.1); Protein, Total 4.6 g/dL (6.4-8.2)
--- NOTE | 2021-12-18 06:58 | P.PN ---
Date of Service: 12/18/21 Subjective: ROS: 10 point ROS as noted above, otherwise negative Physical exam GEN: Alert, oriented x1, NAD HEENT: Normal conjunctiva, sclera anicteric CV: Regular rate and rhythm, 1+ b/l lower extremity edema Pulm: Nonlabored respirations on 2L NC, clear to auscultation bilaterally, diminished at bases ABD: Soft, nontender, nondistended Neuro: Normal speech, normal affect, generalized weakness Problem List esophageal stenosis, esophageal stricture septic shock secondary to UTI, resolved acute cystitis without hematuria, resolved acute metabolic encephalopathy secondary to UTI/Sepsis Dementia h/o CVA acute on chronic anemia Urine culture growing Klebsiella pneumonia, as isolated 1 week ago. In last month grew proteus and pseudomonas as well blood cultures grew staph epi in 12/21, and then grew staph hominis; repeat blood cultures negative ID consulted, recommends full treatment x 14 days, end date 12/24 PICC placed TTE negative for vegetation s/p cystoscopy on 12/[address] Toney, voiding trial without issue anemia of chronic disease, Hgb dropped to 6.9 few days ago, s/p 1u PRBC on 12/13, hgb stable/low Continue PT. Patient is bedbound at baseline Continue other home medications. Continue Plavix for history of CVA. wean O2 as tolerated, patient with mild b/l pleural effusions on CXR from fluid received for septic shock, trial of spironolactone patient with intermittent spitting up, h/o reflux, feels food stuck in chest; intermittent for several months, two episodes of severe symptoms concerned for stenosis vs stricture MBS done this morning, confirmed patient actually has both ST recommends CLD needs GI consult. 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 Current schedule does not show any coverage for next month transfer initiated discussed with daughter, patient with not much PO intake in the last several days, recommend dobhoff, daughter wants to hold off for right now Code: full Dispo: transfer to tertiary [facility] for GI evaluation / intervention
[2021-12-18] MEDS ORDERED: ALBUTEROL 2.5 MG/3 ML NEB SOL NEB PRN (07:07)
[2021-12-18] MEDS ORDERED: KCL 20 MEQ/100 mL IVPB 20 MEQ/100 ML BAG IV ONE (07:30)
[2021-12-18] MEDS: PANTOPRAZOLE 40MG TABLET PO SCH ×2 (08:30→17:25)
[2021-12-18] MEDS: ENSURE ENLIVE 237 ML CAN PO SCH ×2 (09:00→20:22)
[2021-12-18] MEDS: SPIRONOLACTONE 25 MG TABLET PO SCH (09:54)
[2021-12-18] MEDS: ENOXAPARIN 40 MG/0.4 ML SQ SCH (09:54)
[2021-12-18] MEDS: CEFTRIAXONE 1,000 MG in NA CHLORIDE 0.9% 50 ML IVPB SCH (09:54)
[2021-12-18] MEDS: SERTRALINE HCL 50 MG TAB PO SCH (09:54)
[2021-12-18] MEDS: CLOPIDOGREL 75 MG TABLET PO SCH (09:54)
--- NOTE | 2021-12-18 13:54 | P.PN ---
Subjective Date of Service: 12/18/21 Chief Complaint: Confusion Patient seen and examined at bedside, no acute events. Review of Systems 10-point ROS is otherwise unremarkable Physical Examination - Vital Signs Temperature: 97.5 F Blood Pressure: 145/69 Pulse: 62 Respirations: 12 Pulse Ox (%): 96 - Studies Laboratory Last Values WBC 20.10 K/uL (4.3-10.9) H* D 12/07/21 14:40 RBC 2.92 M/uL (3.86-4.86) L 12/07/21 14:40 Hgb 9.1 g/dL (12.0-15.0) L 12/07/21 14:40 Hct 27.0 % (36.0-45.0) L 12/07/21 14:40 MCV 92.5 fL (80-100) 12/07/21 14:40 MCH 31.3 pg (27.0-35.0) 12/07/21 14:40 MCHC 33.8 g/dL (32.0-36.0) 12/07/21 14:40 RDW 18.4 % (12.1-15.2) H 12/07/21 14:40 Plt Count 624 K/uL (152-406) H 12/07/21 14:40 MPV 6.6 fL (7.6-11.3) L 12/07/21 14:40 Neutrophils % 73.2 % (41.7-73.7) 12/07/21 14:40 Lymphocytes % 17.1 % (15.3-44.8) 12/07/21 14:40 Monocytes % 7.6 % (3.3-12.3) 12/07/21 14:40 Eosinophils % 1.0 % (0-4.4) 12/07/21 14:40 Basophils % 1.1 % (0-1.3) 12/07/21 14:40 Absolute Neutrophils 14.7 K/uL (1.8-8.0) H 12/07/21 14:40 Absolute Lymphocytes 3.4 K/uL (0.7-4.9) 12/07/21 14:40 Absolute Monocytes 1.5 K/uL (0.1-1.3) H 12/07/21 14:40 Absolute Eosinophils 0.2 K/uL (0-0.5) 12/07/21 14:40 Absolute Basophils 0.2 K/uL (0-0.5) 12/07/21 14:40 Platelet Estimate Incr 12/07/21 14:40 Poikilocytosis 1+ 12/07/21 14:40 Anisocytosis 2+ 12/07/21 14:40 Morphology Comment Noted (NOT SEEN) 12/07/21 14:40 PT 11.7 SECONDS (9.5-12.5) 12/07/21 14:40 INR 1.06 12/07/21 14:40 APTT 34.8 SECONDS (24.3-36.9) 12/07/21 14:40 Sodium 137 mmol/L (136-145) 12/07/21 14:40 Potassium 4.0 mmol/L (3.5-5.1) 12/07/21 14:40 Chloride 107 mmol/L (98-107) 12/07/21 14:40 Carbon Dioxide 23 mmol/L (21-32) 12/07/21 14:40 BUN 11 mg/dL (7-18) 12/07/21 14:40 Creatinine 0.46 mg/dL (0.55-1.3) L 12/07/21 14:40 Estimated GFR > 90 mL/min (=/>90) 12/07/21 14:40 Glucose 89 mg/dL (74-106) 12/07/21 14:40 Lactic Acid 2.0 mmol/L (0.4-2.0) 12/07/21 14:40 Calcium 8.5 mg/dL (8.5-10.1) 12/07/21 14:40 Total Bilirubin 0.3 mg/dL (0.2-1.0) 12/07/21 14:40 AST 41 U/L (15-37) H 12/07/21 14:40 ALT 30 U/L (12-78) 12/07/21 14:40 Alkaline Phosphatase 111 U/L (45-117) 12/07/21 14:40 Serum Total Protein 5.7 g/dL (6.4-8.2) L 12/07/21 14:40 Albumin 2.6 g/dL (3.4-5.0) L 12/07/21 14:40 Globulin 3.1 g/dL (2.3-3.5) 12/07/21 14:40 Albumin/Globulin Ratio 0.8 (1.1-1.8) L 12/07/21 14:40 Urine pH 5.5 (5.0-7.0) 12/07/21 14:58 Ur Specific [place] 1.020 (1.005-1.030) 12/07/21 14:58 Glucose (UA)(Auto) Negative (Negative) 12/07/21 14:58 Urine Ketones Negative (Negative) 12/07/21 14:58 Urine Blood 2+ (Negative) H 12/07/21 14:58 Urine Nitrite Positive (Negative) H 12/07/21 14:58 Ur Leukocyte Esterase 3+ (Negative) H 12/07/21 14:58 Urine RBC 5-10 /HPF (NONE SEEN) H 12/07/21 15:00 Urine WBC Loaded /HPF (<5) H 12/07/21 15:00 Ur Squamous Epith Cells 5-10 /HPF (NONE SEEN) H 12/07/21 15:00 Urine Bacteria Loaded /HPF (<20) H 12/07/21 15:00 Urine Culture Reflexed Not needed 12/07/21 15:00 Urine Total Protein 1+ (Negative) H 12/07/21 14:58 SARS-CoV-2 Rap RNA(RT-PCR) Negative (NEGATIVE) 12/07/21 17:38 Smear Scan Ok (OK) 12/07/21 14:40 Assessment And Plan - Plan Physical exam: General: Confused HEENT: Atraumatic, Normocephalic Neck: Supple, 2+ carotid pulse no bruit Respiratory: Clear to auscultation bilaterally, Normal air movement Cardiovascular: Normal pulses, Regular rate/rhythm Gastrointestinal: Normal bowel sounds, Soft and benign Integumentary: No rashes, No breakdown, No significant lesion Conclusions/Impression: Antibiotics rocephin: 12/11-current Vancomycin: . Restart: 12/14current Cefepime: Urosepsis secondary to cystitis Failed treatment with IV Zosyn x3 days Urine culture growing Klebsiella. IV cefepime deescalated to IV Rocephin based on susceptibility report. Patient will need extended course of antibiotics. -Had cystoscopy yesterday secondary to recurrent urinary tract infections. Urology team plans to try voiding trial. Complicated coagulase-negative staph bacteremia Blood cultures obtained on 12/07 grew staph epi in 4/4 bottles. Repeat blood cultures obtained on 12/09 grew staph hominis in 4/4 bottles. Additional repeat on 12/11 show NG. Recommend restarting IV vancomycin and treating for 2 weeks from 12/11. -Transthoracic echocardiogram negative for acute vegetation. Medical management per primary team Plan of care discussed with Dr. Moses Thank you for consultation
--- NOTE | 2021-12-18 15:08 | P.DS ---
Admission Date: 12/07/21 Discharge Date: 12/18/21 Disposition: TRANSFER TO [facility] Discharge Condition: FAIR Reason for Admission: Sepsis, UTI Consultations: Infectious Disease - Dr. Moses Urology - Dr. Toney Procedures: TTE (12/15): Mild aortic stenosis. 1.7cm squared. mild TR. no vegetation. normal EF. mitral annular calcification. technically difficult study Modified Barium Swallow Study (12/17): Speech Therapy report Pt presents with a mild oral dysphagia characterized by scattered loss with thin, slow anterior-posterior transport (~20 seconds), mild-moderate premature spillage to the valleculae with thin, and mild premature spillage to the pyriform sinuses with thin. Pt presents with a mild pharyngeal dysphagia characterized by fused cervical vertebrae, 2-second swallow delay, muscular protrusion from posterior pharyngeal wall at C3-C4, pooling in the pyriform sinuses, penetration that did not clear with thin by cup, and mild residue in the valleculae and pyriform sinuses with puree. Pt presents with a severe esophageal disorder characterized by esophageal stenosis superior to the stomach, ballooning of material superior to stenosis, stricture at medial position of esophagus, and mild esophageal residue throughout. Recommend: Clear liquid diet Problem List esophageal stenosis, esophageal stricture septic shock secondary to UTI, resolved acute cystitis without hematuria, resolved acute toxic-metabolic encephalopathy secondary to UTI/Sepsis moderate-severe Dementia, chronic h/o CVA acute on chronic anemia Brief History of Present Illness: 86yo F, PMH: CVA- bedbound, dementia, HTN, frequent UTIs. Presented to ED a few days after being discharged for IV antibiotic therapy for UTI. Patient had fever to 101, confusion, and not feeling well. Found to have UA concerning for UTI, with leukocytosis, CT: thickening of bladder consistent with cystitis. Hospital Course: Patient became hypotensive requiring IV fluid boluses and pressors. Patient was empirically treated with IV cefepime and vancomycin. Urine culture grew klebsiella. IV cefepime de-escalated to IV rocephin based on susceptibility report. Klebsiella, proteus, and pseudomonas have been isolated from patient's urine on different occasions over the last 4-6 weeks. Urology was consulted and patient underwent cystoscopy on 12/15 without any significant findings. Bella was removed and patient voided without issue. Blood cultures obtained on 12/07 grew staph epi in 4/4 bottles. Repeat blood cultures obtained on 12/09 grew staph hominis in 4/4 bottles. Additional repeat on 12/11 show NG. ID recommended restarting IV vancomycin and treating with both antibiotics for 2 weeks from 12/11. Patient had PICC line placed without issue. TTE performed and negative for vegetation. Patient with anemia of chronic disease. Hgb dropped to 6.9 and received 1u PRBC on 12/13. No signs of bleeding. Hgb has since been stable. Patient required 1-2L NC due to hypoxia / shortness of breath. CXR with mild b/l pleural effusions, due to fluids received for septic shock, and low albumin. As patient improved and began to eat more, she was noted to spit up frequently with small amounts of food. She reported feeling food stuck in her chest. Daughter reported intermittent episodes over the last ~year or so. This has only been this bad once before and attributes this to her reflux. Modified barium swallow revealed esophageal stenosis and mid-esophageal stricture. Patient could not tolerate pudding or anything more solid. She was placed on clear liquid diet. Daughter would want to proceed with GI evaluation and possible treatment. Did not want dobhoff attempted currently. Unfortunately we do not have any foreseeable GI coverage in the coming days/week. Patient was accepted to [facility] [place] for further evaluation/management. Vital Signs/Physical Exam: Temp Pulse Resp BP Pulse Ox 97.5 F 62 12 145/69 H 96 12/18/21 13:54 12/18/21 13:54 12/18/21 13:54 12/18/21 13:54 12/18/21 13:54 Physical exam GEN: Alert, oriented x1, NAD HEENT: Normal conjunctiva, sclera anicteric CV: Regular rate and rhythm, 1+ b/l lower extremity edema to knees Pulm: Non-labored respirations on 2L NC, clear to auscultation bilaterally, diminished at bases ABD: Soft, nontender, nondistended Neuro: Normal speech, normal affect, generalized weakness, hard of hearing, +dementia Laboratory Data at Discharge: WBC 8.2 K/uL (4.3-10.9) D 12/18/21 04:20 Hgb 8.4 g/dL (12.0-15.0) L 12/18/21 04:20 Hct 24.8 % (36.0-45.0) L 12/18/21 04:20 Plt Count 294 K/uL (152-406) 12/18/21 04:20 PT 11.7 SECONDS (9.5-12.5) 12/07/21 14:40 INR 1.06 12/07/21 14:40 APTT 34.8 SECONDS (24.3-36.9) 12/07/21 14:40 Sodium 141 mmol/L (136-145) 12/18/21 04:20 Potassium 3.7 mmol/L (3.5-5.1) 12/18/21 04:20 BUN 9 mg/dL (7-18) 12/18/21 04:20 Creatinine 0.66 mg/dL (0.55-1.3) 12/18/21 04:20 Glucose 78 mg/dL (74-106) 12/18/21 04:20 Phosphorus 2.2 mg/dL (2.5-4.9) L 12/14/21 04:55 Magnesium 1.9 mg/dL (1.8-2.4) 12/18/21 04:20 Total Bilirubin 0.6 mg/dL (0.2-1.0) 12/18/21 04:20 AST 34 U/L (15-37) 12/18/21 04:20 ALT 29 U/L (12-78) 12/18/21 04:20 Alkaline Phosphatase 111 U/L (45-117) 12/18/21 04:20 Home Medications: Aspirin [Aspirin EC 81 MG] 81 mg PO DAILY 30 Days #30 tablet. 01/13/21 Atorvastatin Calcium [Lipitor] 40 mg PO BEDTIME 30 Days #30 tab 01/13/21 Clopidogrel Bisulfate [Plavix*] 75 mg PO DAILY 30 Days #30 tablet 01/13/21 Nystatin Powder [Mycostatin (Powder)*] 1 appl TOP DAILY PRN 21 Days #1 btl 01/13/21 Pantoprazole Sodium [Protonix] 40 mg PO BID 09/26/21 Sertraline [Zoloft*] 50 mg PO DAILY 09/26/21 Ensure Enlive 237 ml PO BID #60 can 09/29/21 Gabapentin [Neurontin*] 100 mg PO BEDTIME 12/01/21 Sennosides/Docusate Sodium [Senna-S Tablet] 2 each PO DAILY 12/01/21 traMADol HCL [Ultram*] 50 mg PO DAILY PRN 12/01/21 Followup: Unknown,U [Primary Care Provider] - Time spent managing pt's care (in minutes): 45
[2021-12-18] MEDS: VANCOMYCIN 1.25 GM in NA CHLORIDE 0.9% 250 ML IVPB SCH (18:00)
[2021-12-18] MEDS: ATORVASTATIN 40 MG TAB PO SCH (20:23)
[2021-12-18 21:03] VITALS: O2SAT 98
[2021-12-18 21:53] VITALS: BP 167/74; TEMP 97.3
== END 2021-12-19 00:28 | disposition short-term general hospital (02) | DRG 871 ==
LOC: ER 13:51 → ERHOLD 18:10 → 3RD-ICU 12-08 20:04 → 2ND 12-12 15:50
PROVIDERS: ADMIT Internal Medicine; ATTEND Internal Medicine
PROC: 06HM33Z Insertion of Infusion Device into Right Femoral Vein, Percutaneous Approach (ICD-10-PCS; 2021-12-08)
PROC: 0TJB8ZZ Inspection of Bladder, Via Natural or Artificial Opening Endoscopic (ICD-10-PCS; 2021-12-15)
PROC: 02HV33Z Insertion of Infusion Device into Superior Vena Cava, Percutaneous Approach (ICD-10-PCS; principal; 2021-12-15 15:45)
DX: A41.1 Sepsis due to other specified staphylococcus (principal); R65.21 Severe sepsis with septic shock; G93.41 Metabolic encephalopathy; N30.00 Acute cystitis without hematuria; E44.0 Moderate protein-calorie malnutrition; I69.354 Hemiplegia and hemiparesis following cerebral infarction affecting left non-dominant side; B96.1 Klebsiella pneumoniae [K. pneumoniae] as the cause of diseases classified elsewhere; D63.8 Anemia in other chronic diseases classified elsewhere; K22.2 Esophageal obstruction; F03.90 Unspecified dementia, unspecified severity, without behavioral disturbance, psychotic disturbance, mood disturbance, and anxiety; Z68.27 Body mass index [BMI] 27.0-27.9, adult; R09.02 Hypoxemia; K21.9 Gastro-esophageal reflux disease without esophagitis; Z74.01 Bed confinement status; Z87.440 Personal history of urinary (tract) infections; Z20.822 Contact with and (suspected) exposure to COVID-19
CPT/HCPCS: 36415; 36430; 36569; 71045; 74018; 74177; 74230; 80048; 80053; 80202; 81003; 81015; 83605; 83735; 84100; 84132; 84145; 85014; 85018; 85025; 85027; 85610; 85730; 86850; 86900; 86901; 87040; 87077; 87086; 87088; 87186; 87205; 92610; 92611; 93005; 93306; 96365; 96366; 97110; 97161; 97530; 99285; J0360; J0692; J1642; J1650; J2405; J2543; J2550; J2704; J3370; J3475; J3480; J7030; J7040; J7050; J7060; J7120; P9016; P9047; Q9967; U0003